=== PATIENT | female | born 1950 | race Asian ===

== ENCOUNTER → 2020-01-16 14:33 | Outpatient (BNV) | payer MEDICARE, OTHER, SELFPAY | PROVIDERS: Visit Provider Internal Medicine Medical Oncology | DX: C50.911 Malignant neoplasm of unspecified site of right female breast (principal); C78.7 Secondary malignant neoplasm of liver and intrahepatic bile duct; C79.51 Secondary malignant neoplasm of bone | CPT/HCPCS: 99212; 99213; 99214 ==

== ENCOUNTER 2020-02-23 11:09 | Outpatient (REF) | payer MEDICARE, OTHER, SELFPAY ==
--- NOTE | 2020-02-23 11:10 | MR_ITS ---
EXAMINATION: MR ABDOMEN WITHOUT AND WITH CONTRAST CLINICAL INFORMATION: Breast cancer. Followup metastatic disease. COMPARISON: Previous abdominal MRIs most recent May 2019 and PET/CT scan July 2019 TECHNIQUE: MR abdomen was performed without and with use of 6 mL intravenous Gadavist gadolinium contrast. Postcontrast images are performed in multiphase dynamic sequences. Imaging was performed in 3 planes. FINDINGS: LUNG BASES: The right breast has been removed. The lung bases are clear. LIVER, GALLBLADDER, AND BILIARY TREE: The left lobe of the liver appears small. There are areas of focal scarring or capsular retraction in the left lobe of the liver and one area in the posterior segment of the right lobe. The liver demonstrates a large area of altered/decreased enhancement. This involves the left lobe and the anterior segment of the right lobe. This appears increased from prior exams. This likely represents perfusion effects. There are multiple liver lesions seen. The majority of the lesions appear cystic, low signal on T1 and high signal on T2-weighted sequences and no evidence of enhancement. There are several heterogeneous lesions that are mixed high and low signal on T1 and T2-weighted sequences and demonstrate no appreciable enhancement in the left lobe measuring 2 cm axial image 29, centrally in the liver measuring 2.2 cm axial image 36 and peripherally in the posterior segment of the right lobe measuring 2 x 3 cm axial image 52. These peripheral lesions demonstrate overlying scarring or capsular retraction. This likely represents a combination of cysts and treated liver lesions. No new liver lesion or abnormal enhancement is seen. There are gallstones in the gallbladder. There is no biliary duct dilatation. PANCREAS: Unremarkable. SPLEEN: Normal. ADRENAL GLANDS: Normal. KIDNEYS AND URETERS: The kidneys are normal in size, shape, and enhance symmetrically. No hydronephrosis. No perinephric stranding. GASTROINTESTINAL TRACT: No bowel obstruction. No ascites or fluid collection. ABDOMINAL WALL: No significant hernia is appreciated. LYMPH NODES: No lymphadenopathy. VASCULAR: Unremarkable. OSSEOUS STRUCTURES: Marrow signal normal. MR/MR abdomen wo/w con IMPRESSION: Stable appearance to the multiple liver lesions likely representing a combination of treated lesions and liver cysts. No new liver lesion or abnormal enhancement is seen. There is a large area of altered perfusion involving the entire left lobe and the anterior segment of the right lobe of the liver seen on postcontrast sequences that appears increased likely representing perfusion effect. Gallstones.
== END 2020-02-23 11:10 | disposition home or self-care (01) ==
LOC: HO.MRI 11:09
PROVIDERS: Visit Provider Internal Medicine Medical Oncology
DX: C78.7 Secondary malignant neoplasm of liver and intrahepatic bile duct (principal)
CPT/HCPCS: 74183; A9585

== ENCOUNTER 2020-06-03 09:41 | Outpatient (REF) | payer MEDICARE, OTHER, SELFPAY ==
--- NOTE | 2020-05-24 10:49 | MHC.HEMONCMA ---
Called patient to ask which lab she wanted to have order faxed to. Faxed lab order to [address]. Confirmation received.
--- NOTE | ~2020-06-03 | MR_ITS ---
EXAMINATION: MR ABDOMEN WITHOUT AND WITH CONTRAST CLINICAL INFORMATION: Breast cancer. Liver metastasis. COMPARISON: Previous PET/CT scan March 2020 and previous abdominal MRI most recent February 2020. TECHNIQUE: MR abdomen was performed without and with use of 6.5 mL intravenous Gadavist gadolinium contrast. Postcontrast images are performed in multiphase dynamic sequences. Imaging was performed in 3 planes. FINDINGS: LUNG BASES: The visualized lung bases are clear. There is a right breast prosthesis. There is a 2 cm lesion in the left breast just deep to the nipple. This is seen on coronal sequences only. LIVER, GALLBLADDER, AND BILIARY TREE: The left lobe of the liver is a small. There are areas of liver scarring or capsular retraction seen. There is an area of abnormal perfusion seen in the posterior segment of the right lobe of the liver that appears unchanged. There are multiple liver lesions seen that appear unchanged. There are multiple liver lesions seen that are unchanged. There are several cystic lesions that are low signal on T1, high signal on T2 weighted sequences and demonstrate no evidence of enhancement. The largest measures 1.4 cm in the left lobe. There are several heterogeneous on T1 and T2-weighted sequences lesions with no enhancement, largest measuring 1.8 x 2.4 cm in the central liver axial image 44 and 1.8 x 2.7 cm in the peripheral posterior segment of the right lobe axial image 55 postcontrast. These are unchanged and likely represent treated lesions. No new liver lesion is seen. There are gallstones in the gallbladder. There is no biliary duct dilatation. PANCREAS: Unremarkable. SPLEEN: Normal. ADRENAL GLANDS: Normal. KIDNEYS AND URETERS: The kidneys are normal in size, shape, and enhance symmetrically. No hydronephrosis. No perinephric stranding. GASTROINTESTINAL TRACT: No bowel obstruction. No ascites or fluid collection. ABDOMINAL WALL: No significant hernia is appreciated. LYMPH NODES: No lymphadenopathy. VASCULAR: Unremarkable. OSSEOUS STRUCTURES: There are degenerative changes of the spine. MR/MR abdomen wo/w con IMPRESSION: Stable liver lesions likely representing a combination of cysts and treated lesions. Altered perfusion in the posterior segment of the right lobe of the liver. Small left lobe of the liver. Gallstones. 2.4 cm lesion in the left breast just deep to the nipple. Correlation with physical exam and mammogram recommended. The right breast is absent.
== END 2020-06-03 09:42 | disposition home or self-care (01) ==
LOC: HO.MRI 09:41
PROVIDERS: Visit Provider Internal Medicine Medical Oncology
DX: C50.919 Malignant neoplasm of unspecified site of unspecified female breast (principal)
CPT/HCPCS: 74183; A9585

== ENCOUNTER 2020-06-14 09:56 | Outpatient (REF) | payer MEDICARE, OTHER, SELFPAY ==
--- NOTE | ~2020-06-14 | US_ITS ---
EXAMINATION: US VENOUS ULTRASOUND WITH DOPPLER LOWER EXTREMITY, BILATERAL CLINICAL INFORMATION: Bilateral leg swelling evaluate for DVT COMPARISON: None TECHNIQUE: Ultrasound of the deep veins is performed from the hip to the calf with compression sonography and color and pulse Doppler assessment. Spectral analysis with color-flow imaging is performed. FINDINGS: RIGHT: There is normal venous compression and respiratory variation and augmented flow. The visualized common femoral vein, superficial femoral vein, profunda femoral vein, popliteal vein, and the trifurcation region shows no evidence of deep venous thrombosis. There is no significant popliteal fossa cyst. LEFT: There is normal venous compression and respiratory variation and augmented flow. The visualized common femoral vein, superficial femoral vein, profunda femoral vein, popliteal vein, and the trifurcation region shows no evidence of deep venous thrombosis. There is no significant popliteal fossa cyst. If the patient's symptoms persist, followup ultrasound in 5 days 7 days might be of value to exclude proximal propagation from a non-visualized calf vein. US/US venous duplex LE BI IMPRESSION: No DVT demonstrated in the right and left lower extremity.
== END 2020-06-14 09:57 | disposition home or self-care (01) ==
LOC: HO.US 09:56
PROVIDERS: PCP Internal Medicine; Visit Provider Orthopaedic Surgery
DX: R60.0 Localized edema (principal); C50.919 Malignant neoplasm of unspecified site of unspecified female breast; N63.20 Unspecified lump in the left breast, unspecified quadrant
CPT/HCPCS: 93970

== ENCOUNTER 2020-06-21 07:58 | Outpatient (REF) | payer MEDICARE, OTHER, SELFPAY ==
--- NOTE | ~2020-06-21 | MM_ITS ---
EXAMINATION: MM DIAGNOSTIC DIGITAL BREAST TOMOSYNTHESIS, LEFT US DIAGNOSTIC ULTRASOUND BREAST, LEFT CLINICAL INFORMATION: 69-year-old with history metastatic breast cancer to liver. Prior right mastectomy. Recent MRI shows circumscribed oval superficial nodularity near nipple on coronal large [id number] sequence. Prior mammography 2019 currently unavailable, performed in [place]. COMPARISON: MRI abdomen 06/03/2020, head CT 03/12/2020. TECHNIQUE: Digital breast tomosynthesis is performed in both the craniocaudal and mediolateral oblique views along with computer-aided detection (CAD). Synthesized 2D images are generated from the tomosynthesis. Ultrasound left breast is targeted to the retroareolar and periareolar region. FINDINGS: There are scattered areas of fibroglandular density (ACR BI-RADS breast composition Category b). Breast tissue composition borders on heterogeneously dense. There is no mass or architectural abnormality or abnormal calcifications. The skin contours are smooth. There is no retroareolar parenchymal asymmetry or mass to correspond to the concern on recent coronal MRI sequence. No abnormal PET activity left breast on recent imaging. Finding on recent MRI may have represented artifact from mild nipple retraction at time of imaging. Ultrasound demonstrates no cystic or solid mass or architectural abnormality. No focal duct ectasia. No skin thickening. Results are discussed with the patient at time of visit. If prior outside breast imaging is made available, comparison will be made and addendum report. MM/MM tomosynthesis diagnostic LT IMPRESSION: No mammographic evidence of malignancy. Unremarkable targeted left breast ultrasound. ASSESSMENT: BI-RADS 1: Negative RECOMMENDATION: Annual mammography. This patient's information was entered into a reminder system with a target due date for their next mammogram.
== END 2020-06-21 07:59 | disposition home or self-care (01) ==
LOC: HO.MAMMO 07:58
PROVIDERS: PCP Internal Medicine; Visit Provider Internal Medicine Medical Oncology
DX: N63.20 Unspecified lump in the left breast, unspecified quadrant (principal); Z85.3 Personal history of malignant neoplasm of breast; Z90.11 Acquired absence of right breast and nipple
CPT/HCPCS: 76642; 77061; 77065

== ENCOUNTER 2020-07-19 09:00 | Outpatient (RCR) | payer MEDICARE, OTHER, SELFPAY | END 2020-09-11 11:53 | disposition other institution (70) | LOC: HO.OT 09:00 | PROVIDERS: PCP Internal Medicine; Visit Provider Internal Medicine Medical Oncology | DX: I89.0 Lymphedema, not elsewhere classified (principal) | CPT/HCPCS: 97140; 97167 ==

== ENCOUNTER 2020-09-04 13:34 | Outpatient (REF) | payer MEDICARE, OTHER, SELFPAY ==
--- NOTE | ~2020-09-04 | MR_ITS ---
EXAMINATION: MR ABDOMEN WITHOUT AND WITH CONTRAST CLINICAL INFORMATION: Liver lesions, follow-up. COMPARISON: Abdominal MRI dated 06/03/2020 and PET/CT dated 03/12/2020. TECHNIQUE: MR abdomen was performed without and with use of 6 mL intravenous Gadavist gadolinium contrast. Postcontrast images are performed in multiphase dynamic sequences. Imaging was performed in 3 planes. FINDINGS: LUNG BASES: The visualized lung bases are unremarkable. LIVER: Several hepatic lesions are again seen with similar appearance in size. [employer] lesions are as follows: Anterior dome, subcapsular, low T1/T2 signal without significant enhancement: 2.2 x 2.1 cm (image 24, series 101). Mid dome, low T1/T2 signal without significant enhancement: 1.9 x 1.7 cm (image 21, series 101). Left lobe, anterior, T2 hyperintense without significant enhancement: 2.0 x 1.5 cm (image 30, series 100), similar adjacent lesion in measuring 0.9 cm (image 32, series 100) and 2.0 cm (image 38, series 100) without significant change. Right lobe, medially with longitudinal orientation, heterogeneous signal with T2 hyperintense component and no significant enhancement: 2.7 x 2.6 cm (image 36, series 101). Right lobe, posterolateral: Low T2 and mild high T1 signal without significant enhancement: 3.0 x 2.5 cm (image 50, series 101). GALLBLADDER, AND BILIARY TREE: Gallbladder is distended containing small gallstones without surrounding abnormality. PANCREAS: Unremarkable. SPLEEN: Unremarkable. ADRENAL GLANDS: Unremarkable. KIDNEYS AND URETERS: Unremarkable. GASTROINTESTINAL TRACT: Unremarkable. No ascites or fluid collection. ABDOMINAL WALL: Unremarkable. LYMPH NODES: No lymphadenopathy. VASCULAR: Unremarkable. OSSEOUS STRUCTURES: Multilevel degenerative changes without significant abnormality or change. MR/MR abdomen wo/w con IMPRESSION: 1. No significant change in hepatic lesions as detailed above. Imaging follow-up is recommended as per protocol. 2. Cholelithiasis without evidence for acute cholecystitis.
== END 2020-09-04 13:35 | disposition home or self-care (01) ==
LOC: HO.MRI 13:34
PROVIDERS: Visit Provider Internal Medicine Medical Oncology
DX: C50.919 Malignant neoplasm of unspecified site of unspecified female breast (principal); C78.7 Secondary malignant neoplasm of liver and intrahepatic bile duct
CPT/HCPCS: 74183; A9585

== ENCOUNTER 2020-12-27 10:55 | Outpatient (REF) | payer MEDICARE, OTHER, SELFPAY ==
--- NOTE | ~2020-12-27 | MR_ITS ---
EXAMINATION: MR ABDOMEN WITHOUT AND WITH CONTRAST CLINICAL INFORMATION: Breast cancer. Follow-up liver lesions. COMPARISON: Previous liver MRIs most recent September 2020 TECHNIQUE: MR abdomen was performed without and with use of 6 mL intravenous Gadavist gadolinium contrast. Postcontrast images are performed in multiphase dynamic sequences. Imaging was performed in 3 planes. FINDINGS: LUNG BASES: The visualized lung bases are clear. The right breast has been removed. LIVER, GALLBLADDER, AND BILIARY TREE: There is a atrophy or scarring of the left lobe of the liver. There is abnormal perfusion of the posterior segment of the right lobe of the liver that is unchanged. There is a heterogeneous signal lesion on T1 and T2-weighted sequences lesion in the peripheral posterior segment of the right lobe. This does not demonstrate evidence of enhancement. This is decreased in size from previous exams measuring 2 x 3.4 cm in AP and transverse dimension compared to 2.5 x 3 cm on most recent exam September 2020. There are similar in signal heterogeneous on T1 and T2-weighted sequences lesions in the central liver measuring approximately 2 cm that do not demonstrate evidence of enhancement and do not appear appreciably changed. There are multiple cystic lesions seen in the liver that are low signal on T1-weighted sequences, high signal on T2-weighted sequences and do not demonstrate evidence of enhancement that appear unchanged. These likely represents sequela of previously treated liver lesions. No new liver lesion or enhancement is seen to suggest new metastatic or recurrent disease. There is no intra or extrahepatic biliary duct dilatation. The gallbladder is contracted. There are small gallstones in the gallbladder. PANCREAS: Unremarkable. SPLEEN: Normal. ADRENAL GLANDS: Normal. KIDNEYS AND URETERS: The kidneys are normal in size, shape, and enhance symmetrically. No hydronephrosis. No perinephric stranding. GASTROINTESTINAL TRACT: No bowel obstruction. No ascites or fluid collection. ABDOMINAL WALL: No significant hernia is appreciated. LYMPH NODES: No lymphadenopathy. VASCULAR: Unremarkable. OSSEOUS STRUCTURES: Marrow signal normal. There are degenerative changes of the spine. MR/MR abdomen wo/w con IMPRESSION: There is interval decrease in size in a lesion in the peripheral posterior segment of the right lobe of the liver. Otherwise liver lesions do not appear appreciably changed from recent exams. No new liver lesion or enhancement is seen to suggest metastatic or recurrent disease.
== END 2020-12-27 10:56 | disposition home or self-care (01) ==
LOC: HO.MRI 10:55
PROVIDERS: PCP Internal Medicine; Visit Provider Internal Medicine Medical Oncology
DX: C50.919 Malignant neoplasm of unspecified site of unspecified female breast (principal)
CPT/HCPCS: 74183; A9585

== ENCOUNTER 2021-03-21 09:26 | Outpatient (REF) | payer MEDICARE, OTHER, SELFPAY ==
--- NOTE | ~2021-03-21 | MR_ITS ---
EXAMINATION: MR ABDOMEN WITHOUT AND WITH CONTRAST CLINICAL INFORMATION: Follow-up of liver metastasis from breast cancer. COMPARISON: Previous MRIs most recent December 2020. TECHNIQUE: MR abdomen was performed without and with use of 6 mL intravenous Gadavist gadolinium contrast. Postcontrast images are performed in multiphase dynamic sequences. Imaging was performed in 3 planes. FINDINGS: LUNG BASES: The visualized lung bases are clear. The right breast has been removed. LIVER, GALLBLADDER, AND BILIARY TREE: There is atrophy or scarring of the left lobe of the liver. There is a persistent wedge-shaped area of abnormal perfusion in the posterior segment of the right lobe the liver that is unchanged. There are multiple nonenhancing cystic lesions seen in the both lobes of the liver. There are also multiple round heterogeneous on T1 and T2-weighted sequences nonenhancing lesions seen in both lobes of the liver. Findings are suggestive of a previously treated lesions. No new liver lesion is seen. No enhancement is seen to suggest residual disease. The portal and hepatic veins are patent. The gallbladder is not well-visualized and may be contracted. There is no intrahepatic or extrahepatic biliary duct dilatation. PANCREAS: Unremarkable. SPLEEN: Normal. ADRENAL GLANDS: Normal. KIDNEYS AND URETERS: The kidneys are normal in size, shape, and enhance symmetrically. No hydronephrosis. No perinephric stranding. GASTROINTESTINAL TRACT: No bowel obstruction. No ascites or fluid collection. ABDOMINAL WALL: No significant hernia is appreciated. LYMPH NODES: No lymphadenopathy. VASCULAR: Unremarkable. OSSEOUS STRUCTURES: There are degenerative changes of the spine. Marrow signal is normal. MR/MR abdomen wo/w con IMPRESSION: Stable appearance of liver lesions from most recent exam December 2020. No new liver lesion or enhancement is seen to suggest recurrent disease.
== END 2021-03-21 09:27 | disposition home or self-care (01) ==
LOC: HO.MRI 09:26
PROVIDERS: PCP Internal Medicine; Visit Provider Internal Medicine Medical Oncology
DX: C50.919 Malignant neoplasm of unspecified site of unspecified female breast (principal)
CPT/HCPCS: 74183; A9585

== ENCOUNTER 2021-06-25 13:00 | Outpatient (REF) | payer MEDICARE, OTHER, SELFPAY ==
--- NOTE | ~2021-06-25 | MM_ITS ---
EXAMINATION: MM SCREENING DIGITAL BREAST TOMOSYNTHESIS, LEFT CLINICAL INFORMATION: Screening. Asymptomatic. Status post right mastectomy. Breast cancer metastatic to liver. COMPARISON: Mammography: June 21, 2020 and MRI and PET/CT studies dating back to December 04, 2014 TECHNIQUE: Digital breast tomosynthesis is performed in both the craniocaudal and mediolateral oblique views along with computer-aided detection (CAD). Synthesized 2D images are generated from the tomosynthesis. FINDINGS: The breasts are heterogeneously dense, which may obscure small masses (ACR BI-RADS breast composition Category c). There are no significant masses, abnormal calcifications, or other abnormalities. MM/MM tomosynthesis screening LT IMPRESSION: There are no significant changes from prior study. ASSESSMENT: BI-RADS 1: Negative RECOMMENDATION: Routine annual mammography screening. This patient's information was entered into a reminder system with a target due date for their next mammogram.
== END 2021-06-25 13:01 | disposition home or self-care (01) ==
LOC: HO.MAMMO 13:00
PROVIDERS: PCP Internal Medicine; Visit Provider Internal Medicine Medical Oncology
DX: Z12.31 Encounter for screening mammogram for malignant neoplasm of breast (principal)
CPT/HCPCS: 77063; 77067

== ENCOUNTER 2021-07-07 13:27 | Outpatient (REF) | payer MEDICARE, OTHER, SELFPAY ==
--- NOTE | ~2021-07-07 | MR_ITS ---
EXAMINATION: MR ABDOMEN WITHOUT AND WITH CONTRAST CLINICAL INFORMATION: Liver metastasis from breast cancer. COMPARISON: Previous abdominal MRIs, most recent March 2021. TECHNIQUE: MR abdomen was performed without and with use of 6 mL intravenous Gadavist gadolinium contrast. Postcontrast images are performed in multiphase dynamic sequences. Imaging was performed in 3 planes. FINDINGS: LUNG BASES: The visualized lung bases are unremarkable. LIVER, GALLBLADDER, AND BILIARY TREE: There is atrophy of the left lobe of the liver. There is abnormal increased perfusion of the posterior segment of the right lobe of the liver similar to previous exams. There are stable liver lesions likely representing treated lesions. The majority of these lesions are cystic and low signal on T1 and high signal on T2-weighted sequences. There are some heterogeneous lesions that are heterogeneous in signal on T1 and T2-weighted sequences. No enhancing liver lesion is seen. Largest lesion measures 2.3 x 2.8 cm in the central liver. No new liver lesion is seen. There may be an area of mild focal biliary duct dilatation in the posterior segment of the right lobe of the liver that is unchanged. The gallbladder appears contracted. There may be small gallstones in the gallbladder. PANCREAS: Unremarkable. SPLEEN: Normal. ADRENAL GLANDS: Normal. KIDNEYS AND URETERS: The kidneys are normal in size, shape, and enhance symmetrically. No hydronephrosis. No perinephric stranding. GASTROINTESTINAL TRACT: Diverticulosis of the colon. No bowel obstruction. No ascites or fluid collection. ABDOMINAL WALL: No significant hernia is appreciated. LYMPH NODES: No lymphadenopathy. VASCULAR: Unremarkable. OSSEOUS STRUCTURES: There are degenerative changes of the spine. There is increased signal seen probably anterior to the right hip joint. This is seen on coronal sequences only. This could represent a joint effusion or fluid in the iliopsoas bursa. MR/MR abdomen wo/w con IMPRESSION: Stable appearance of the liver likely representing treated lesions. No new liver lesion seen. Probable contracted gallbladder and gallstones. Probable contracted gallbladder and gallstones. Mild diverticulosis of the colon.
== END 2021-07-07 13:28 | disposition home or self-care (01) ==
LOC: HO.MRI 13:27
PROVIDERS: Visit Provider Internal Medicine Medical Oncology
DX: C50.919 Malignant neoplasm of unspecified site of unspecified female breast (principal); C78.7 Secondary malignant neoplasm of liver and intrahepatic bile duct; K57.90 Diverticulosis of intestine, part unspecified, without perforation or abscess without bleeding
CPT/HCPCS: 74183; A9585

== ENCOUNTER 2021-10-28 14:13 | Outpatient (REF) | payer MEDICARE, OTHER, SELFPAY ==
--- NOTE | ~2021-10-28 | US_ITS ---
EXAMINATION: US VENOUS WITH DOPPLER UPPER EXTREMITY, RIGHT CLINICAL INFORMATION: Right upper extremity edema. COMPARISON: None TECHNIQUE: Ultrasound of the upper extremity is performed using compression sonography and color and pulse Doppler flow with assessment of augmentation of flow. There is also imaging and Doppler assessment of the jugular and subclavian veins. Spectral analysis with color-flow imaging is performed. FINDINGS: Respiratory variation, normal compression, and augmented flow are noted throughout the upper extremity including the axillary, brachial, cubital, and radial and ulnar veins. There is normal flow in the internal jugular and subclavian veins. There is no visible deep or superficial thrombophlebitis. If the patient's symptoms progress, a followup ultrasound in 5 -7 days might be of value to exclude proximal propagation from a nonvisualized distal arm vein. US/US venous duplex UE RT IMPRESSION: No evidence for deep venous thrombosis in the visualized veins of the right upper extremity.
== END 2021-10-28 14:14 | disposition home or self-care (01) ==
LOC: HO.US 14:13
PROVIDERS: PCP Internal Medicine; Visit Provider Internal Medicine Medical Oncology
DX: R60.0 Localized edema (principal)
CPT/HCPCS: 93971

== ENCOUNTER 2021-11-19 11:27 | Outpatient (REF) | payer MEDICARE, OTHER, SELFPAY ==
--- NOTE | ~2021-11-19 | MR_ITS ---
EXAMINATION: MR ABDOMEN WITHOUT AND WITH CONTRAST CLINICAL INFORMATION: Metastatic breast cancer. COMPARISON: Previous MRIs most recent July 2021. TECHNIQUE: MR abdomen was performed without and with use of 6 mL intravenous Gadavist gadolinium contrast. Postcontrast images are performed in multiphase dynamic sequences. Imaging was performed in 3 planes. FINDINGS: LUNG BASES: The visualized lung bases are unremarkable. LIVER, GALLBLADDER, AND BILIARY TREE: There is atrophy of the left lobe of the liver. There is abnormal increased perfusion in the posterior segment of the right lobe of the liver, similar to previous exams. There are multiple liver lesions seen in both lobes of the liver, likely representing treated lesions. Some lesions are cystic, low signal on T1-weighted sequences and high signal on T2-weighted sequences. Largest cystic lesion measures 1.3 x 2 cm in the central left lobe of the liver, for example axial image 36 postcontrast. There are some lesions that are heterogeneous in signal on T1 and T2-weighted sequences without evidence of enhancement. Largest lesions measure 2.5 cm in the central liver, for example axial image 38 postcontrast and 1.5 x 2.5 cm in the posterior segment of the right lobe of the liver axial image 49 postcontrast. No new liver lesion is seen. There is no biliary duct dilatation. PANCREAS: Unremarkable. SPLEEN: Normal. ADRENAL GLANDS: Normal. KIDNEYS AND URETERS: The kidneys are normal in size, shape, and enhance symmetrically. No hydronephrosis. No perinephric stranding. GASTROINTESTINAL TRACT: Diverticulosis of the colon. No bowel obstruction. No ascites or fluid collection. ABDOMINAL WALL: No significant hernia is appreciated. LYMPH NODES: No lymphadenopathy. VASCULAR: Unremarkable. OSSEOUS STRUCTURES: There are degenerative changes of the spine. No fracture or bone lesion is appreciated. MR/MR abdomen wo/w con IMPRESSION: Atrophy of the left lobe of the liver. Stable abnormal increased perfusion of the posterior segment of the right lobe of the liver. Stable probably treated liver lesions. No new liver lesion seen.
== END 2021-11-19 11:28 | disposition home or self-care (01) ==
LOC: HO.MRI 11:27
PROVIDERS: Visit Provider Internal Medicine Medical Oncology
DX: C50.919 Malignant neoplasm of unspecified site of unspecified female breast (principal)
CPT/HCPCS: 74183; A9585

== ENCOUNTER → 2021-12-10 15:21 | Outpatient (BNVA) | payer MEDICARE, OTHER, SELFPAY | PROVIDERS: PCP Internal Medicine; Visit Provider Nurse Practitioner Family | DX: Z01.818 Encounter for other preprocedural examination (principal) | CPT/HCPCS: 99202 ==

== ENCOUNTER 2021-12-17 11:00 | Outpatient (RCR) | payer MEDICARE, OTHER, SELFPAY ==
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
--- NOTE | 2021-12-17 15:39 | MHC.OT.DC ---
[address] [phone] F: [phone] Occupational Therapy Discharge Note Provider: Alisson Neff MD Diagnosis: Right upper extremity lymphedema , s/p right breast Ca with mastectomy Date of Surgery: Date of Evaluation: 11/28/21 Date of Discharge: 12/17/21 Treatments to Date: 4 Cancellations to Date: No Shows to Date: Discharge Status: Achieved Goals Improved Function Independent with HEP Discharge Summary: Dec in hand and arm edema noted. Mild to moderate fibrosis at forearm will benefit from added babatunde pack to facilitate softening tissue and lymphatic flow. Pt wearing sleeve during the day and wrapping with bandaging at night. She is not wearing compression knee highs with a history of LE lymphedema with residual edema at ankles noted. She is indep with self management with the assist from her with night bandaging and she is aware of precautions with bandaging. [place] will be out of the country [place] 3 [place] and has scheduled for the Flexitouch sequential pump for when she returns in April. An alternative night compression wrap will be beneficial for further edema reduction, prevention of a re accumulation of fluid as well as independence in self management. Will benefit from added chunk luciana for night wear to soften fibrotic tissue and alternative night compression sleeve for inc ease in self management. Pt leaving for [facility] this weekend for 3 months Will wait for ordering night sleeve when she returns in April 2022 Electronically Signed By: Libby Miles OT CHT CLT Reviewed/agree with student documentation: N/A Therapist: Please Sign and return to therapist, thank you for your referral.
== END 2022-01-19 09:35 | disposition home or self-care (01) ==
LOC: HO.OT 11:00
PROVIDERS: PCP Internal Medicine; Visit Provider Internal Medicine Medical Oncology
DX: R22.31 Localized swelling, mass and lump, right upper limb (principal)
CPT/HCPCS: 97140; 97166

== ENCOUNTER 2022-04-20 13:19 | Outpatient (REF) | payer MEDICARE, OTHER, SELFPAY ==
--- NOTE | ~2022-04-20 | MR_ITS ---
EXAMINATION: MR ABDOMEN WITHOUT AND WITH CONTRAST CLINICAL INFORMATION: Follow up liver lesions in this patient with history of metastatic breast cancer. COMPARISON: Abdominal MRI 11/19/2021. TECHNIQUE: MR abdomen was performed without and with use of 6 mL intravenous Gadavist gadolinium contrast. Postcontrast images are performed in multiphase dynamic sequences. Imaging was performed in 3 planes. FINDINGS: LUNG BASES: Right-sided mastectomy with a right breast implant. LIVER, GALLBLADDER, AND BILIARY TREE: There is signal loss in the opposed phase dual echo images suggesting hepatic steatosis. There is atrophy of the left hepatic lobe and multiple areas of capsular retraction along the surface of the liver consistent with pseudocirrhosis in the setting of treated metastatic disease. There is redemonstration of innumerable liver lesions the majority of which are either stable or decreased in size. However, when evaluating one of the delayed venous phases (series 101) a 0.8 cm hypovascular lesion posterior to a larger lesion in the central right hepatic lobe (1001:12) appears new; and a few regions of ill-defined hypoattenuation in the posterior right hepatic lobe are slightly more prominent (101:28). Some examples of the additional stable/decreased lesions include a 2.5 cm posterior right hepatic lobe lesion (101:34) previously measuring 2.7 cm and a 2.9 cm central liver lesion (101:23) previously measuring 3 cm. Many of the lesions are predominantly T2 bright, however a few of the largest lesions demonstrate heterogeneous T2 signal and low T2 signal. On T1 precontrast images there are proteinaceous/hemorrhagic contents in many of the lesions. There is redemonstration of a wedge-shaped area of delayed enhancement with intermediate T2 signal in the posterior right hepatic lobe, favoring to represent sequela of a perfusional abnormality. PANCREAS: Unremarkable. SPLEEN: Normal. ADRENAL GLANDS: Normal. KIDNEYS AND URETERS: The kidneys are normal in size, shape, and enhance symmetrically. No hydronephrosis. No perinephric stranding. GASTROINTESTINAL TRACT: The included portions of the bowel are within normal limits. ABDOMINAL WALL: No significant hernia is appreciated. LYMPH NODES: No lymphadenopathy. VASCULAR: The abdominal aorta is of normal diameter. OSSEOUS STRUCTURES: Degenerative changes of the spine. OTHERS: Incompletely characterized T2 dark uterine lesion along the anteroinferior body (1:7) with questionable thickening of the endometrium measuring up to 0.7 cm in thickness. Trace amount of free fluid in the cul-de-sac and right adnexal region. Multiple soft tissue nodules in the gluteal regions, possibly injection sites. MR/MR abdomen wo/w con IMPRESSION: 1. Redemonstration of innumerable liver lesions many of which are either stable or decreased in size except for a couple of new focal observations in the posterior right hepatic lobe best identified in one of the postcontrast venous phases (series 101). These are nonspecific and could potentially represent new metastatic foci. A short-term follow-up is recommended. 2. Incompletely characterized T2 dark uterine lesion with questionable thickening of the endometrium measuring up to 0.7 cm in thickness. This could be further evaluated with pelvic ultrasound.
== END 2022-04-20 13:20 | disposition home or self-care (01) ==
LOC: HO.MRI 13:19
PROVIDERS: PCP Internal Medicine; Visit Provider Internal Medicine Medical Oncology
DX: C50.919 Malignant neoplasm of unspecified site of unspecified female breast (principal)
CPT/HCPCS: 74183

== ENCOUNTER 2022-05-28 10:53 | Day surgery (SDC) | payer MEDICARE, OTHER, SELFPAY ==
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
[2022-05-28 11:36] VITALS: BMI 22.3
--- NOTE | 2022-05-28 11:39 | MHC.SHP ---
Pre-Procedural Eval Section A Date of Service: 05/28/22 Section B Chief Complaint: screening Relevant Family History (Specify if Yes): No Relevant Social History: None Present Medications: see Short Stay Collaborative assessment Medical History: Significant History (Arthritis Arthrosis of knee Hypertension) History of Previous Operations: Relevant previous surgery/procedure and date(s) (H/O arthroscopy of left knee H/O total mastectomy of right breast History of appendectomy History of bunionectomy) Allergies: Allergies Allergy/AdvReac Type Severity Reaction Status Date / Time ragweed pollen [RAGWEED] Allergy Unknown SNEEZING, Verified 05/26/22 13:17 CONGESTION Review of Systems Sugical H&P ROS: Negative: Constitution, Cardiovascular, Respiratory, Neurological, Psychiatric, Hem-Onc, Allergic/Immunologic, Gastrointestinal, Genitourinary, Musculoskeletal, Integumentary, Endocrine and Eyes/Ears/Nose/Throat Exam Surgical H&P Exam: Normal: HEENT, Normal: Heart, Normal: Lungs, Normal: Extremities, Normal: Abdomen, Normal: Skin and Normal: Neurological Plan Diagnosis/Plan: Unchanged I have reviewed the history and physical and performed a pertinent physical examination on my patient. No changes have occurred unless specified. Time Spent With Patient Time: Total time managing care of this patient today ____ minutes.
[2022-05-28 11:49] VITALS: BP 162/95; PULSE 82; RESP 16; TEMP 36.6; O2SAT 99
[2022-05-28 12:35] VITALS: BP 143/88; PULSE 83; RESP 20; TEMP 36.6; O2SAT 99
--- NOTE | 2022-05-28 12:35 | W.PM.OPN ---
Operative Note Operative Note Date of Service: 05/28/22 Narrative: Operative Information Procedure Description: Colonoscopy Indication: screening Anesthesia: MAC COLONOSCOPY Instrument: Olympus variable stiffness pediatric scope 190L Colonoscopy Monitoring: Vital signs and clinical assessment, continuous EKG monitoring, Pulse oximetry, Carbon Dioxide monitoring and blood pressure monitoring were done throughout the procedure. Colon withdrawal time was 24 minutes. Procedure: The patient was placed in the left lateral decubitis position and pre-procedure medications were administered. After a digital rectal examination of the ano-rectum, the video colonoscope was inserted into the rectum and advanced through the colon to the cecum/TI. The colonoscope was slowly withdrawn in a retrograde panoramic fashion and the colon mucosa was carefully examined including a retroflexed view of the rectum. Findings and interventions are described below. Procedure Difficulty: moderate due to tortuous colon Findings: Terminal Ileum-normal Cecum: 3-4 mm sessile polyp removed with cold forceps Ascending Colon: normal Transverse Colon -normal Descending Colon:normal Sigmoid Colon: mild diverticulosis, 13-15 mm semi pedunculated polyp removed en bloc with hot snare (endocut) after injecting with 3 cc of epinephrine. x 2 clips then applied to close the defect. Rectum: Retroflexion with small internal hemorrhoids, grade I Anorectum - normal Colon preparation: [place] Bowel Preparation Scale Right colon; 2 Transverse colon: 3 Left colon; 3 (0 = Unprepared colon segment with mucosa not seen due to solid stool that cannot be cleared. 1 = Portion of mucosa of the colon segment seen, but other areas of the colon segment not well seen due to staining, residual stool and/or opaque liquid. 2 = Minor amount of residual staining, small fragments of stool and/or opaque liquid, but mucosa of colon segment seen well. 3 = Entire mucosa of colon segment seen well with no residual staining, small fragments of stool or opaque liquid) Impression and Post Procedure Diagnosis: polyps internal hemorrhoids diverticular disease Plan: High fiber diet leaflet Avoid straining at stool, epsom salts and sitz bath, anusol supps or cream Repeat Colonoscopy in 1-2 years or earlier if clinically indicated Above findings were reviewed with the patient and relevant handouts were provided if indicated.
[2022-05-28 12:50] VITALS: BP 166/92; PULSE 84; RESP 18; TEMP 37; O2SAT 97
== END 2022-05-28 13:45 | disposition home or self-care (01) ==
PROVIDERS: PCP Internal Medicine; Visit Provider Internal Medicine Gastroenterology
PROC: 0DJD8ZZ Inspection of Lower Intestinal Tract, Via Natural or Artificial Opening Endoscopic (ICD-10-PCS; CPT 45378; principal; 2022-05-28 12:20)
DX: Z12.11 Encounter for screening for malignant neoplasm of colon (principal); C19 Malignant neoplasm of rectosigmoid junction; D12.0 Benign neoplasm of cecum; K57.30 Diverticulosis of large intestine without perforation or abscess without bleeding; K64.0 First degree hemorrhoids; K56.2 Volvulus; I10 Essential (primary) hypertension; M17.12 Unilateral primary osteoarthritis, left knee; Z90.11 Acquired absence of right breast and nipple; Z79.899 Other long term (current) drug therapy
CPT/HCPCS: 45385; 45380; 45381; 88305; 88341; 88342; J0171

== ENCOUNTER 2022-05-29 11:07 | Outpatient (REF) | payer MEDICARE, OTHER, SELFPAY ==
--- NOTE | ~2022-05-29 | US_ITS ---
EXAMINATION: US PELVIS CLINICAL INFORMATION: Follow-up uterine lesion and endometrial thickening. COMPARISON: MRI abdomen dated 04/20/2022. TECHNIQUE: Ultrasound of the pelvis is performed using both transabdominal and transvaginal transducers along with Doppler. Transvaginal imaging is performed due to inadequate visualization transabdominally. FINDINGS: Uterus: The uterus is anteverted and anteflexed. The uterus measures 8.0 x 3.9 x 5.3 cm. The double wall endometrial thickness is 0.7 mm. A small amount of nonspecific free fluid is seen within the endometrial canal and endocervical canal. The uterus is smooth in contour and has normal myometrial echogenicity. Nabothian cysts are seen within the cervix. FIBROIDS: There are 2 fibroids seen. 1. Location: Rightward body, myometrial. Size: 2.6 x 1.3 x 1.9 cm. Fibroid characteristics: Heterogeneous echotexture, with calcifications. 2. Location: Leftward body, myometrial. Size: 2.7 x 2.3 x 2.8 cm. Fibroid characteristics: Heterogeneous echotexture, calcifications. Adnexa: Both ovaries are nonvisualized. No adnexal mass is seen. No free fluid is seen within the cul-de-sac. US/US pelvic and transvaginal IMPRESSION: 1. There are uterine fibroids, as detailed. 2. There is postmenopausal thickening of the endometrial canal. Gynecology evaluation and management are recommended, with consideration for tissue sampling, if clinically indicated. 3. There is a small amount of nonspecific free fluid within the endometrial and endocervical canals. 4. Nabothian cysts are seen within the cervix. 5. The bilateral ovaries are nonvisualized.
== END 2022-05-29 11:08 | disposition home or self-care (01) ==
LOC: HO.US 11:07
PROVIDERS: PCP Internal Medicine; Visit Provider Internal Medicine Medical Oncology
DX: R87.9 Unspecified abnormal finding in specimens from female genital organs (principal)
CPT/HCPCS: 76830; 76856

== ENCOUNTER → 2022-06-04 08:26 | Outpatient (BNVA) | payer MEDICARE, OTHER, SELFPAY | PROVIDERS: PCP Internal Medicine; Referring Provider Internal Medicine Medical Oncology; Visit Provider Surgery | DX: C18.9 Malignant neoplasm of colon, unspecified (principal) | CPT/HCPCS: 99202 ==

== ENCOUNTER 2022-06-15 11:15 | Outpatient (REF) | payer MEDICARE, OTHER, SELFPAY ==
--- NOTE | ~2022-06-15 | CT_ITS ---
EXAMINATION: CT ABDOMEN AND PELVIS WITH CONTRAST CLINICAL INFORMATION: Malignant neoplasm of colon. COMPARISON: MRI abdomen 04/20/2022. TECHNIQUE: Multidetector volumetric images were obtained from the superior aspect of the liver through the pubic symphysis following administration 85 mL of Omnipaque 350 intravenous contrast. Sagittal and coronal reformatted images were obtained on the technologist's workstation. Oral contrast: No This CT examination was performed using dose optimization techniques as appropriate, variously including the following: *Automated exposure control *Adjustment of mA and/or kV according to patient size (this includes techniques or standardized protocols for targeted exams where dose is matched to indication/reason for exam; i.e. extremities or head) *Use of iterative reconstruction technique DLP: 268 mGy-cm FINDINGS: LUNG BASES: There is a left lower lobe band-like atelectasis. Small left pleural effusion and minimal right posterior pleural thickening is seen. LIVER, GALLBLADDER, AND BILIARY TREE: There are multiple hypodense liver lesions. The largest lesion is central adjacent to the mary lou hepatis measuring 2.6 cm on axial image 12/3. These lesions are different from previous study 11/26/2016. The newest lesion posterior to the central lesion described on MRI as 8 mm, similar to previous measurement. There appears be no change in the size of these lesions. Mild retraction of the capsule along the right hepatic lobe is stable. The left hepatic lobe is smaller. There is a soft tissue lesion along the posterior segment of right hepatic lobe likely intrahepatic and partially exophytic measuring 3.9 x 2.6 cm on axial image 22/3. It appears unchanged to previous MRI. No intrahepatic duct dilatation seen. There are multiple radiopaque gallstones without wall thickening. The liver is heterogeneous and normal size. PANCREAS: Unremarkable. SPLEEN: Unremarkable. ADRENAL GLANDS: Unremarkable. KIDNEYS AND URETERS: The kidneys are normal in size, shape, and attenuation. No hydronephrosis, hydroureter, or calculi seen. No perinephric stranding. BLADDER: Unremarkable. GASTROINTESTINAL TRACT: There is scattered stool and gas seen throughout the colon without distention. The small bowel loops are normal caliber. Appendix is normal caliber. No free air or free fluid seen. ABDOMINAL WALL: No significant hernia is appreciated. LYMPH NODES: Normal. VASCULAR: Unremarkable. PELVIC VISCERA: The uterus is midline with calcified partially exophytic fibroid measuring 3 cm. OSSEOUS STRUCTURES: There is grade 1 anterolisthesis L3 over L4. There are degenerative disc changes L5-S1 disc level with ventral spondylosis. CT/CT abdomen pelvis w IV con IMPRESSION: Heterogeneous nonenlarged liver with multiple hypodense lesions essentially stable to the last MRI abdomen exam 04/20/2022. No new lesions are seen since the last MRI. Suspect gallstones with a small contracted gallbladder. Mild constipation. Partially exophytic calcified uterine fibroid is stable. Fleischner guidelines were followed.
[2022-06-15] MEDS: iohexoL 350 MG/ML 100 ML INFUS..BTL 85 ML IV (11:52)
== END 2022-06-15 11:16 | disposition home or self-care (01) ==
LOC: HO.CT 11:15
PROVIDERS: PCP Internal Medicine; Visit Provider Surgery
DX: C18.9 Malignant neoplasm of colon, unspecified (principal)
CPT/HCPCS: 74177; Q9967

== ENCOUNTER → 2022-06-22 13:55 | Outpatient (BNVA) | payer MEDICARE, OTHER, SELFPAY | PROVIDERS: PCP Internal Medicine; Visit Provider Surgery | DX: C18.9 Malignant neoplasm of colon, unspecified (principal); I89.0 Lymphedema, not elsewhere classified; Z85.3 Personal history of malignant neoplasm of breast; Z85.05 Personal history of malignant neoplasm of liver; Z90.11 Acquired absence of right breast and nipple | CPT/HCPCS: 99212 ==

== ENCOUNTER 2022-07-23 12:09 | Outpatient (REF) | payer MEDICARE, OTHER, SELFPAY ==
--- NOTE | ~2022-07-23 | MM_ITS ---
EXAMINATION: MM SCREENING DIGITAL BREAST TOMOSYNTHESIS, LEFT CLINICAL INFORMATION: Screening. Asymptomatic. Status post right mastectomy COMPARISON: Mammography: June 25, 2021 and studies dating back to breast MRI December 29, 2019 TECHNIQUE: Digital breast tomosynthesis is performed in both the craniocaudal and mediolateral oblique views along with computer-aided detection (CAD). Synthesized 2D images are generated from the tomosynthesis. FINDINGS: The breasts are heterogeneously dense, which may obscure small masses (ACR BI-RADS breast composition Category c). There are no significant masses, abnormal calcifications, or other abnormalities. MM/MM tomosynthesis screening LT IMPRESSION: No significant changes ASSESSMENT: BI-RADS 1: Negative RECOMMENDATION: Routine annual mammography screening. This patient's information was entered into a reminder system with a target due date for their next mammogram.
== END 2022-07-23 12:10 | disposition home or self-care (01) ==
LOC: HO.MAMMO 12:09
PROVIDERS: Visit Provider Internal Medicine Medical Oncology
DX: Z12.31 Encounter for screening mammogram for malignant neoplasm of breast (principal)
CPT/HCPCS: 77063; 77067

== ENCOUNTER 2022-07-30 08:56 | Day surgery (SDC) | payer MEDICARE, OTHER, SELFPAY ==
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
[2022-07-30 08:38] VITALS: BMI 21.9
[2022-07-30 09:00] VITALS: BP 173/92; PULSE 78; RESP 18; TEMP 36.1; O2SAT 98
[2022-07-30] MEDS: Lactated Ringers 1,000 ML 100 ML IVCONT (09:33)
--- NOTE | 2022-07-30 09:48 | PC.NURSE ---
pt hard stick #22 left wrist. pt coming back fron resections tomorrow okay by director and anesthesia to leave iv in. pt educated about adaptor and pacu and d/c aware
--- NOTE | 2022-07-30 10:35 | W.PM.OPN ---
Operative Note Operative Note Date of Service: 07/30/22 Narrative: Preop diagnosis: sigmoid cancer Postop diagnosis: the same, no obvious lesion seen, scar noted at level 30 cm Procedure: flexible sigmoidoscopy, tattoo marking of scar at level 30 cm using Endoink Surgeon: Filemon Urrutia MD 71F with polyp removed by Dr. 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 As per Dr. Pennington, the polyp was at around level 20 cm. I scheduled the patient for flexible sigmoidoscopy to yajaira the area. She was aware of the risks, benefits and alternatives. She was brought to the OR and placed in left lateral decub position under MAC. A surgical timeout was done. A digital rectal exam was done which did not reveal any lesions. I inserted the colonoscop gently through the anal orifice and this was advanced with insufflation to level 50 cm. I withdrew the scope slowly with careful examination of the mucosa. There were no lesions seen. There was a fibrotic scar at level 30 cm. I marked this area with EndoInk in multiple places. Multiple passes were made on the sigmoid and rectosigmoid and there were no other mucosal changes noted. The scope was withdrawn completely with dessuflation. She tolerated the procedure well. There were no immediate complications. She is scheduled for sigmoid resection tomorrow.
[2022-07-30 10:38] VITALS: BP 123/71; PULSE 81; RESP 20; TEMP 36.5; O2SAT 95
[2022-07-30 10:50] VITALS: BP 116/92; PULSE 80; RESP 16; TEMP 36.7; O2SAT 98
[2022-07-30 11:00] VITALS: BP 158/91; PULSE 78; RESP 16; O2SAT 98
--- NOTE | 2022-07-30 11:10 | PC.NURSE ---
as per dr Renan fuentes to maintain iv in left arm until tomorows procedure. Curos cap place to maintain sterility and webbed sock placed over entire line. Education provided on bathing and preventing getting line wet. communicated with Discharge lounge as well
== END 2022-07-30 11:23 | disposition home or self-care (01) ==
PROVIDERS: PCP Internal Medicine; Visit Provider Surgery
PROC: 0DJD8ZZ Inspection of Lower Intestinal Tract, Via Natural or Artificial Opening Endoscopic (ICD-10-PCS; CPT 45330; principal; 2022-07-30 10:00)
DX: C18.7 Malignant neoplasm of sigmoid colon (principal); C50.911 Malignant neoplasm of unspecified site of right female breast; Z79.810 Long term (current) use of selective estrogen receptor modulators (SERMs); C78.7 Secondary malignant neoplasm of liver and intrahepatic bile duct; Z90.11 Acquired absence of right breast and nipple; Z92.21 Personal history of antineoplastic chemotherapy; Z92.3 Personal history of irradiation; I97.2 Postmastectomy lymphedema syndrome; I10 Essential (primary) hypertension; K21.9 Gastro-esophageal reflux disease without esophagitis; Z79.899 Other long term (current) drug therapy; Z86.16 Personal history of COVID-19
CPT/HCPCS: 45335

== ENCOUNTER 2022-07-31 11:52 | Inpatient (IN) | payer MEDICARE, OTHER, SELFPAY ==
--- NOTE | 2022-07-23 | ECG_ITS ---
Test Reason : HTN PREOP Blood Pressure : / mmHG Vent. Rate : 078 BPM Atrial Rate : 078 BPM P-R Int : 176 ms QRS Dur : 092 ms QT Int : 412 ms P-R-T Axes : 059 028 053 degrees QTc Int : 469 ms Normal sinus rhythm Normal ECG When compared with ECG of 01-MAY-2016 12:16, No significant change was found Referred By: Blessing Miranda Electronically Signed By:LORENZO MERRILL
[2022-07-23 13:13] VITALS: BP 139/69; PULSE 75; RESP 16; O2SAT 98; BMI 22.3
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
[2022-07-23 15:00] LABS: Hematocrit 34.9 % (37.0-47.0); Hemoglobin 11.1 g/dl (12.0-16.0); Mean Corpuscular HGB Conc 31.8 g/dl (31.0-35.0); Mean Corpuscular Hemoglobin 26.2 pg (27.0-33.0); Mean Corpuscular Volume 82.5 fL (80.0-98.0); Mean Platelet Volume 11.2 fL (9.4-12.3); Platelet Count 147 X10*3/uL (160-400); Red Blood Count 4.23 X10*6/uL (4.20-5.50); Red Cell Distribution Width 14.6 % (11.0-16.0); White Blood Count 4.7 X10*3/uL (4.8-10.8)
[2022-07-31] VITALS (11 sets, daily range): BP systolic 113–145; BP diastolic 56–85; PULSE 77–86; RESP 16–18; TEMP 36–36.7; O2SAT 94–100
[2022-07-31] MEDS: Scopolamine 1.5 MG PATCH.TD.3 TRANSDERMA (08:13)
[2022-07-31] MEDS: Lactated Ringers 1,000 ML 100 ML IVCONT (08:13)
--- NOTE | 2022-07-31 08:53 | PC.NURSE ---
IV placed yesterday by shankar morris rn for flex sig. patient difficult IV site with limb restriction. permission for patient to go home with IV for surgery today. this 22 gauge IV flushed without difficulty. dr. coombs attempted ultrasound IV at bedside this a.m. with no success will re-evaluate in OR.
--- NOTE | 2022-07-31 11:33 | P.OP_ITS ---
Operative Note Operative Note Date of Service: 07/31/22 Narrative: preop diagnosis: sigmoid cancer Postop diagnosis: The same Procedure: Hand assisted laparoscopic sigmoid resection with intraop flexible sigmoidoscopy Surgeon: Filemon Urrutia MD property management assistant: RENAE Zepeda Patient is 71-year-old female what undergone a colonoscopy in May 2022 with a large polyp removed. 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 this was discussed with endoscopy, and stated that the lesion was around the level of 20 cm. I proceeded to do a flexible sigmoidoscopy yesterday. There were no lesions seen although there seemed to be some fibrotic changes of the mucosa that resembled a scar at level 30 cm. I marked this area with Endo ink. The patient under was to the planned procedure of sigmoid resection, hand assisted laparoscopic. She understood the risks, benefits, and alternatives. She has given consent. Her was involved with the discussions. She was brought to the operating room. She was placed in modified lithotomy position under general anesthesia via endotracheal tube. The abdomen and the perineum and perianal areas were prepped and draped in the usual sterile fashion. A Peterson catheter had been inserted. A surgical time-out was done earlier. The patient received Cefotan 2 g IV preoperatively. The right arm was tucked to the side. We made sure that all pressure points on the skin were protected. a short midline incision at the umbilical area was made using blade 15. This was carried down with electrocautery through the full-thickness of the skin subcutaneous fat to the fascia the fascia was incised. The peritoneum was entered. The Reno wound retractor process was positioned. The GelPort packing was placed. Insufflation was achieved through a port through the GelPort to a pressure of 15 mm hg. With laparoscopic visualization through the GelPort, I proceeded to insert a 5/12 mm port in the gastric area midline. I moved the 10 mm 30 degree scope through this port. I proceeded to insert another 5/12 mm port in the right lower quadrant. The patient was placed in a steep head-down right side down position. My hand was inserted through the GelPort. I reflected all the bowel loops away from the pelvis. I was able to visualize the rectum. I followed this palpation all the way to the splenic flexure. The there were no lesions identified nor palpated. I could see the tattooed area in the sigmoid colon. Proceeded to mobilize the left colon by dividing the ligamentous attachments along the lot line of Toldt using the LigaSure. I extended this incision on the peritoneum of the sigmoid distally on the left side to the rectosigmoid and rectum to open up the lateral attachments. This was done on the side of the rectum as well. I shows a point in the rectos igmoid area just below the sacral promontory as my point of transection. I mobilized the attachments on both the left and right side on this area of the rectum using the LigaSure by doing so, as able to then create a mesenteric defect at the rectosigmoid. I used a powered Ethicon stapler to divide this. This was a 60 mm stapler that was used. I incised the peritoneum of the rest of the sigmoid on both the left and right side. I chose my point of transection 6 mm proximal to the tattooed barking. I created a mesenteric window. I divided this with the stapler in the same fashion as above. I proceeded to then pull up this entire sigmoid through the Reno wound retractor. I transected this using the LigaSure both proximal distal, preserving as much of the lymphatic basin as possible. I thinned out the pedicle once this was identified.. Once this was clearly identified, I proceeded to then clamp this with a Radhika and this was divided between Radhika clamps. I ligated the proximal of the pedicle with 2 Dexon 2-0 ties. The specimen was delivered and sent for pathology. I marked the proximal segment with a stitch at the the proximal resection. this appeared be well vascularized without any ischemic changes. I excise the staple line with electrocautery. This Lee was dilated using the dilators to 28 mm easily without difficulty. Therefore used the 28 mm EEA stapler. I positioned the anvil through the lumen after applying a pursestring through the full-thickness using a in 2-0 stitch. I tightened the pursestring around the anvil. I made sure that there were no fatty tissue around the stump. I then post position the stump into the pelvis, making sure that there was no twisting. I replaced the GelPort. The 1st hearing aid assistant, RENAE Zepeda then proceeded to the dilator identify the stump all the way to the staple line. She then proceeded to position the EEA apparatus through the anus and advanced this to the staple line. We chose the area anterior to the staple line this spike was activated through this area. I attached the anvil into the spike until this locked into place. We tightened the stapler gently to make sure that there was no tissue caught between the 2 stumps. This was fired and the entire EA apparatus was removed gently. Both anastomotic rings appear to be intact. I then proceeded to do a leak test by immersing the states the anastomotic line in irrigation fluid. The rectum was insufflated with air using a bulb syringe multiple times and there was no bubbling with the staple line seen. The left colon appeared to distend with insufflation. I then proceeded to do an intraop flexible sigmoidoscopy to examine the nipple line from within the mucosal side. The scope was gradually advanced with insufflation past the staple line. I examined the entire staple line and the the anastomosis carefully. There was no area of ischemia and the mucosa appeared healthy although mildly erythematous. The staple line also appeared intact endoscopically. There was no active bleeding from the staple line. The scope was then completely removed. We then proceeded to reinsufflate and examined the peritoneum laparoscopically. There was no evidence of any bowel injury. There was note of good hemostasis in the pelvis as well as the left gutter. There was no tension on the anastomosis. I desufflated completely. I removed the right lower quadrant port. I closed the fascia with a running Maxon 1 stitch. I then examined the midline incision laparoscopically and this appeared to be intact with no bowel caught with the sutures I closed all skin incisions were closed with josh. All incisions were infiltrated with Marcaine 0.5% for postop analgesia. Dressings were applied. The procedure was then completed The patient tolerated procedure well. There were no immediate complications. Initial and final counts of sponges and instruments were correct. Estimated blood loss about 100 cc The patient was extubated without difficulty and transferred to the recovery room with stable vital signs. Colon Resection Tumor location: Sigmoid colon Extent of lymphovascular resection Sigmoid colon: resection of entire sigmoid distal left colon incl. lymphovascular basin General Surg. - Synoptic Notes Colon Resection Tumor location: Sigmoid colon Extent of Lymphovascular Resection: Sigmoid colon: resection of entire sigmoid distal left colon incl. lymphovascular basin
--- OUTSIDE RECORDS SUMMARY | 2022-07-31 11:58 | XMS_ITS | Continuity of Care Document ---
Author Name Unknown Organization [facility] Address [address] [place] [address]- Care Team Providers Care Wood Heel Attacher Name Role Phone Eleonora SHIPLEY, Marah Adhikari Primary Care Physician [facility] 02/02/20 - 02/09/20 [facility] [address] [place], [place] [address] Attending Physician: Marah Crews MD Allergies, Adverse Reactions, Alerts Substance Reaction Severity Status NKA Active Immunizations Given and Recorded Vaccine Date Status Refusal Reason tetanus-diphtheria toxoids (Td) 1 05/19/19 Given influenza virus vaccine, inactivated 2 02/07/19 Gi jenifer influenza virus vaccine, inactivated 3 01/15/18 Re corded influenza virus vaccine, inactivated 01/10/15 Tobin rded influenza virus vaccine, inactivated 4 01/16/10 Gi jenifer pneumococcal 23-valent vaccine 5 01/15/18 Recorded pneumococcal 13-valent vaccine 6 05/13/17 Given pneumococcal 13-valent vaccine 7 01/16/15 Recorded tetanus/diphtheria/pertussis, acel(Tdap) 04/05/09 Recorded Zoster Vaccine Live 03/20/09 Given 1Result Comment: [id number] 2Result Comment: [facility]:[id number] 3Result Comment: [01/17/2018] MARIE 4Admin Note: MANUFACTURE BIOMEDICAL INFO SHEET GIVEN GIVEN W/O INCIDENT 5Result Comment: [01/17/2018] MARIE 6Result Comment: [05/13/2017] [facility] [id number] 7Result Comment: [01/25/2015] MAIRE Medications Afinitor By Mouth, Daily, 0 Refills, Maintenance, 02/02/20 16:44:00 EDT Start Date: 02/02/20 Status: Ordered calcium gluconate 500 mg oral tablet 1 tablet = 500 mg, By Mouth, 3 times a day, 0 Refills, Maintenance, 07/02/16 14:31:46 Start Date: 07/02/16 Status: Ordered LORazepam 0.5 mg oral tablet 1 tablet = 0.5 mg, By Mouth, 3 times a day, PRN as needed for anxiety, 0 Refills, Maintenance, 10/13/18 12:52:19 EDT Start Date: 10/13/18 Status: Ordered Magnesium Gluconate = 400 mg, By Mouth, 2 times a day, 0 Refills, Maintenance, 05/13/17 10:03:29 EST Start Date: 05/13/17 Status: Ordered metoprolol 25 mg oral tablet, extended release 25 mg, 1, tablet, By Mouth, Daily, # 30 tablet, Refills 0, Tot. Refills 0, Maintenance, 02/02/20 17:19:00 EDT, Route to Pharmacy Electronically, [facility] #[id number], 164, cm, 02/02/20 16:26:00 EDT, Height, 65.9, kg, 08/24/19 9:03:00 EDT, Dry W... Start Date: 02/02/20 Status: Ordered omeprazole 20 mg oral delayed release tablet 1 tablet = 20 mg, By Mouth, Daily, 0 Refills, Maintenance, 05/13/17 10:03:00 Start Date: 05/13/17 Status: Ordered tamoxifen 20 mg oral tablet 1 tablet = 20 mg, By Mouth, Daily, 0 Refills, Maintenance, 02/02/20 16:44:00 EDT Start Date: 02/02/20 Status: Ordered Vitamin B12 = 250 mcg, By Mouth, Daily, 0 Refills, Maintenance, 05/13/17 10:03:34 EST Start Date: 05/13/17 Status: Ordered Vitamin D3 = 2,000 International_Units, By Mouth, Daily, 0 Refills, Maintenance, 01/21/15 14:13:10 EDT Start Date: 01/21/15 Status: Ordered Xgeva 120 mg/1.7 mL subcutaneous solution Subcutaneous Infusion, every 90 days, 0 Refills, Maintenance, 07/02/16 14:30:33 EDT Start Date: 07/02/16 Status: Ordered Problem List Condition Effective Dates Status Health Status Inform ant Breast cancer metastasized t o liver(Confirmed) Active Vital Signs Most recent to oldest [Reference Range]: 1 Height 164 cm (02/02/20 4:26 PM) Weight 63.6 kg (02/02/20 4:26 PM) Oxygen Saturation [94-100 %] 97 % (02/02/20 4:26 PM) Pulse Rate [55-90 bpm] 89 bpm (02/02/20 4:26 PM) Body Mass Index [18.5-24.99] 23.65 (02/02/20 4:26 PM) Blood Pressure [90-138/55-84 mm Hg] 164/ 102mm Hg *H* (02/02/20 4:26 PM) Temperature [96.8-100.4 DegF] 97.8 DegF (02/02/20 4:26 PM) Mode of Delivery (Oxygen) Room air (02/02/20 4:26 PM) Blood pressure sites Arm, left (02/02/20 4:26 PM) Temperature Route Temporal (02/02/20 4:26 PM) Weight Obtained Via Standing scale (02/02/20 4:26 PM) Social History Social History Type Response Smoking Status Never smoker entered on: 06/10/15 Sex
--- OUTSIDE RECORDS SUMMARY | 2022-07-31 11:58 | XMS_ITS | Continuity of Care Document ---
Author Name Unknown Organization [facility] Address [address] [place] [address]- Care Team Providers Care Project Management Analyst Name Role Phone Eleonora SHIPLEY, Marah Adhikari Primary Care Physician [facility]): 07/20/21 - 08/19/21 [facility] [address] [place] [address]- Allergies, Adverse Reactions, Alerts No Known Allergies Immunizations Given and Recorded Vaccine Date Status Refusal Reason SARS-CoV-2 mRNA ([id number]) vax 1 07/17/21 Recorded influenza virus vaccine, inactivated 01/06/21 Tobin rded influenza virus vaccine, inactivated 01/10/20 Tobin rded influenza virus vaccine, inactivated 2 02/07/19 Gi jenifer influenza virus vaccine, inactivated 3 01/15/18 Re corded influenza virus vaccine, inactivated 01/16/17 Tobin rded influenza virus vaccine, inactivated 01/10/15 Tobin rded influenza virus vaccine, inactivated 02/28/14 Tobin rded influenza virus vaccine, inactivated 01/05/11 Tobin rded influenza virus vaccine, inactivated 4 01/16/10 Gi jenifer SARS-CoV-2 (COVID-19) mRNA BNT-162b2 vac 5 12/31/20 Recorded SARS-CoV-2 (COVID-19) mRNA BNT-162b2 vac 6 06/05/20 Recorded SARS-CoV-2 (COVID-19) mRNA BNT-162b2 vac 7 05/15/20 Recorded tetanus-diphtheria toxoids (Td) 8 05/19/19 Given pneumococcal 23-valent vaccine 9 01/15/18 Recorded pneumococcal 13-valent vaccine 10 05/13/17 Given pneumococcal 13-valent vaccine 11 01/16/15 Recorde d tetanus/diphtheria/pertussis, acel(Tdap) 04/05/09 Recorded Zoster Vaccine Live 03/20/09 Given 1Result Comment: [facility] 2Result Comment: [facility]:[id number] 3Result Comment: [01/17/2018] MARIE 4Admin Note: MANUFACTURE BIOMEDICAL INFO SHEET GIVEN GIVEN W/O INCIDENT 5Result Comment: Done at [facility] 6Result Comment: Done at [facility] 7Result Comment: Done at [facility] 8Result Comment: [id number] 9Result Comment: [01/17/2018] MARIEGRZAS 10Result Comment: [05/13/2017] [facility] [id number] 11Result Comment: [01/25/2015] MARIE Medications Afinitor By Mouth, Daily, 0 Refills, Maintenance, 02/02/20 16:44:00 EDT Start Date: 02/02/20 Status: Ordered calcium-vitamin D 250 mg-200 intl units oral tablet 1 tablet, By Mouth, 2 times a day, 0 Refills, Maintenance, 07/15/21 10:15:00 EDT, Partial fill uponpatient request if the prescription is for a schedule II opioid drug. Start Date: 07/15/21 Status: Ordered Flonase 50 mcg/inh nasal spray 1 sprays, Nares, Both, 2 times a day, # 16 Gm, 1 Refills, Maintenance, 07/15/21 10:34:00 EDT, [place], [facility]/pharmacy #[id number], Partial fill upon patient request if the prescription is for a schedule II opioid drug., 1 sprays Nares, Both 2 times a day,x30 d... Start Date: 07/15/21 Stop Date: 09/13/21 Status: Ordered hydrochlorothiazide 12.5 mg oral tablet 1 tablet = 12.5 mg, By Mouth, Daily, # 90 tablet, 3 Refills, Maintenance, 07/22/21 11:22:00 EDT, [place]t, [facility]/pharmacy #[id number], 164, cm, 07/15/21 9:32:00 EDT, Height, 58, kg, 04/16/20 13:23:00 EST, DryWeight Start Date: 07/22/21 Stop Date: 07/17/22 Status: Ordered irbesartan 150 mg oral tablet 1 tablet = 150 mg, By Mouth, Daily, # 90 tablet, 3 Refills, Maintenance, 09/17/20 10:40:00 EDT, Tablet, [facility] BY MAIL , lisinopril caused dry cough, 164, cm, 09/17/20 10:06:00 EDT, Height, 58, kg, 04/16/20 13:23:00 EST, Dry Weight Start Date: 09/17/20 Stop Date: 09/12/21 Status: Ordered Magnesium Gluconate = 400 mg, By Mouth, 2 times a day, 0 Refills, Maintenance, 05/13/17 10:03:29 EST Start Date: 05/13/17 Status: Ordered tamoxifen 20 mg oral tablet 1 tablet = 20 mg, By Mouth, Daily, 0 Refills, Maintenance, 02/02/20 16:44:00 EDT Start Date: 02/02/20 Status: Ordered Vitamin B12 0 Refills, Maintenance, 07/15/21 10:15:00 EDT, Partial fill upon patient request if the prescription is for a schedule II opioid drug. Start Date: 07/15/21 Status: Ordered Vitamin C By Mouth, Daily, 0 Refills, Maintenance, 07/15/21 10:15:00 EDT, Partial fill upon patient request if the prescription is for a schedule II opioid drug. Start Date: 07/15/21 Status: Ordered Xgeva 120 mg/1.7 mL subcutaneous solution See Instructions, 120 mg Subcutaneous Infusion Q 3 MOS, 0 Refills, Maintenance, 09/13/20 9:40:00 EDT, Partial fill upon patient request if the prescription is for a schedule II opioid drug. Start Date: 09/13/20 Status: Ordered Zinc = 140 mg, By Mouth, Daily, 0 Refills, Maintenance, 07/15/21 10:15:00 EDT, Partial fill upon patientrequest if the prescription is for a schedule II opioid drug. Start Date: 07/15/21 Status: Ordered Problem List Condition Effective Dates Status Health Status Inform ant Hypertension(Confirmed) Active Breast cancer metastasized t o liver(Confirmed) Active Social History Social History Type Response Smoking Status Never smoker entered on: 06/10/15 Sex
--- OUTSIDE RECORDS SUMMARY | 2022-07-31 11:58 | XMS_ITS | Continuity of Care Document ---
Author Name Unknown Organization [facility] Address [address] [place] [address]- Care Team Providers Care Production Support Manager Name Role Phone Eleonora SHIPLEY, Marah Adhikari Primary Care Physician [facility]s): 03/15/20 - 03/22/20 [facility] [address] [place] [address]- Encounter Diagnosis Abdominal pain(Discharge Diagnosis) - 03/15/20 Attending Physician: Porfirio Oden MD Allergies, Adverse Reactions, Alerts Substance Reaction [...] Zoster Vaccine Live 03/20/09 Given 1Result Comment: [id number] 2Result Comment: [facility]:[id number] 3Result Comment: [01/17/2018] MARIE 4Admin Note: MANUFACTURE BIOMEDICAL INFO SHEET GIVEN GIVEN W/O INCIDENT 5Result Comment: [01/17/2018] MARIE 6Result Comment: [05/13/2017] [facility] [id number] 7Result Comment: [01/25/2015] [facility] Medications Afinitor By Mouth, Daily, 0 Refills, Maintenance, 02/02/20 16:44:00 EDT Start Date: 02/02/20 Status: Ordered calcium gluconate 500 mg oral tablet 1 tablet = 500 mg, By Mouth, 3 times a day, 0 Refills, Maintenance, 07/02/16 14:31:46 Start Date: 07/02/16 Status: Ordered dicyclomine 10 mg oral capsule See Instructions, 1 capsule By Mouth 2 times a day before breakfast and supper as needed for abdominal cramps, # 30 each, 1 Refills, Maintenance, 03/15/20 16:31:00 EST, Caps[place], [facility]/pharmacy #[id number], Partial fill upon patient request if the prescription... Start Date: 03/15/20 Status: Ordered lisinopril 10 mg oral tablet 10 mg, 1, tablet, By Mouth, Daily, STOP METOPROLOL, # 30 tablet, Refills 0, Tot. Refills 0, Maintenance, 03/01/20 13:37:00 EST, Route to Pharmacy Electronically, [facility]/pharmacy #[id number], Partial fill uponpatient request, 164, cm, 02/26/20 13:09:00 EST, He... Start Date: 03/01/20 Status: Ordered LORazepam 0.5 mg oral tablet 1 tablet = 0.5 mg, By Mouth, PRN as needed for anxiety, 0 Refills, [...] 02/02/20 17:19:00 EDT, Route to Pharmacy Electronically, [id number], 164, cm, 02/02/20 16:26:00 EDT, Height, 65.9, [...] Breast cancer metastasized t o liver(Confirmed) Active Diagnosis Diagnosis Type Effective Dates Health Status Cl inical Service Informant Abdominal pain Discharge Diagnosis 03/15/20 Social History Social History Type Response Smoking Status Never smoker entered on: 06/10/15 Sex
--- OUTSIDE RECORDS SUMMARY | 2022-07-31 11:58 | XMS_ITS | Continuity of Care Document ---
Author Name Unknown Organization [facility] Address [address] [place] [address]- Care Team Providers Care Accessioner Name Role Phone Eleonora SHIPLEY, Marah Adhikari Primary Care Physician [phone] [facility]counter [facility] Date(s): 04/26/22 - 05/26/22 [facility] [address] [place], [place] [address] Allergies, Adverse Reactions, Alerts No Known Allergies Immunizations Given and Recorded Vaccine Date Status Refusal Reason influenza virus vaccine, inactivated 12/18/21 Tboin rded influenza virus vaccine, inactivated 01/06/21 Tobin rded influenza virus vaccine, inactivated 01/10/20 Tobin rded influenza virus vaccine, inactivated 1 02/07/19 Gi jenifer influenza virus vaccine, inactivated 2 01/15/18 Re corded influenza virus vaccine, inactivated 01/16/17 Tobin rded influenza virus vaccine, inactivated 01/10/15 Tobin rded influenza virus vaccine, inactivated 02/28/14 Tobin rded influenza virus vaccine, inactivated 01/05/11 Tobin rded influenza virus vaccine, inactivated 3 01/16/10 Gi jenifer SARS-CoV-2 mRNA ([id number]) vax 4 07/17/21 Recorded SARS-CoV-2 (COVID-19) mRNA BNT-162b2 vac 5 12/31/20 Recorded SARS-CoV-2 (COVID-19) mRNA BNT-162b2 vac 6 06/05/20 Recorded SARS-CoV-2 (COVID-19) mRNA BNT-162b2 vac 7 05/15/20 Recorded tetanus-diphtheria toxoids (Td) 8 05/19/19 Given pneumococcal 23-valent vaccine 9 01/15/18 Recorded pneumococcal 13-valent vaccine 10 05/13/17 Given pneumococcal 13-valent vaccine 11 01/16/15 Recorde d tetanus/diphtheria/pertussis, acel(Tdap) 04/05/09 Recorded Zoster Vaccine Live 03/20/09 Given 1Result Comment: [facility]:[id number] 2Result Comment: [01/17/2018] MARIE 3Admin Note: MANUFACTURE BIOMEDICAL INFO SHEET GIVEN GIVEN W/O INCIDENT 4Result Comment: [facility] 5Result Comment: Done at [facility] 6Result Comment: Done at [facility] 7Result Comment: Done at [facility] 8Result Comment: [id number] 9Result Comment: [01/17/2018] MARIE 10Result Comment: [05/13/2017] [facility] [id number] 11Result Comment: [01/25/2015] MARIE Medications Afinitor By [...] Gm, 1 Refills, Maintenance, 07/15/21 10:34:00 EDT, [place], [facility]/pharmacy #[id number], Partial fill upon patient request if the prescription is for a schedule II opioid drug., 1 sprays Nares, Both 2 times a day,x30 d... Start Date: 07/15/21 Stop Date: 09/13/21 Status: Ordered irbesartan 150 mg oral tablet 1 tablet = 150 mg, By Mouth, Daily, # 90 tablet, 1 Refills, Maintenance, 10/28/21 9:08:00 EDT, Tablet, [facility] [place], lisinopril caused dry cough, 164, cm, 09/17/21 10:47:00 EDT, Height, 61, kg, 09/17/21 10:47:00 EDT, Dry Weight Start Date: 10/28/21 Stop Date: 04/26/22 Status: Ordered Magnesium Gluconate = 400 mg, [...] Date: 07/15/21 Status: Ordered Problem List Condition Confirmation Course Effective Dates Status Health [facility] Informant Hypertension Confirmed Active Breast cancer metastasized to liver Confirmed Active Social History Social History Type Response Smoking Status Never smoker entered on: 06/10/15 Sex Patient Care team information Care Team Personnel Name: Marah Crews MD Position: [facility] Primary Care Physician Member Role: PCP Address: Address: [address] [place] [address] Adult & [place] [address]- Name: [place] SHIPLEY, Njogu Position: [facility] Physician (General Medicine) Member Role: Lifetime Consulting Physician Address: Address: [address] [place] [address] Radiology and Imaging [place], [place] [address] Care Team Related Persons Name: JOANNA GONZALEZ Address: [place] [address] Name: MORALES GONZALEZ Address: home [address] [place] [address]
--- OUTSIDE RECORDS SUMMARY | 2022-07-31 11:58 | XMS_ITS | Continuity of Care Document ---
Author Name Unknown Organization [facility] Address [address] [place] [address]- Care Team Providers Care Process Treater Name Role Phone Eleonora SHIPLEY, Marah Adhikari Primary Care Physician [facility] - 06/26/20 [facility] [address] [place], [place] [address] Allergies, Adverse Reactions, Alerts Substance Reaction Severity [...] Zoster Vaccine Live 03/20/09 Given 1Result Comment: [id number] 2Result Comment: [facility]:[id number] 3Result Comment: [01/17/2018] MARIE 4Admin Note: MANUFACTURE BIOMEDICAL INFO SHEET GIVEN GIVEN W/O INCIDENT 5Result Comment: [01/17/2018] MARIE 6Result Comment: [05/13/2017] [facility] [place][note 2] [id number] 7Result Comment: [01/25/2015] MARIE Medications Afinitor By Mouth, Daily, 0 Refills, Maintenance, 02/02/20 16:44:00 EDT Start Date: 02/02/20 Status: Ordered furosemide 20 mg oral tablet 1, tablet, By Mouth, Daily, # 30 tablet, Refills 0, Tot. Refills 0, Maintenance, 06/11/20 11:31:00 EST, Route to Pharmacy Electronically, [id number], 164, cm, 06/10/20 9:33:00 EST, Height, 58, kg, 04/16/20 13:23:00 EST, Dry Weight Start Date: 06/11/20 Status: Ordered irbesartan 75 mg oral tablet 1 tablet = 75 mg, By Mouth, Daily, # 30 tablet, 0 Refills, Maintenance, 06/10/20 9:35:00 EST, Tablet, Partial fill upon patient request if the prescription is for a schedule II opioid drug. Start Date: 06/10/20 Status: Ordered LORazepam 0.5 mg oral tablet [...] 16:44:00 EDT Start Date: 02/02/20 Status: Ordered Problem List Condition Effective Dates Status Health Status Inform ant Hypertension(Confirmed) Active Breast cancer metastasized t o liver(Confirmed) Active Social History Social History Type Response Smoking Status Never smoker entered on: 06/10/15 Sex"
--- OUTSIDE RECORDS SUMMARY | 2022-07-31 11:58 | XMS_ITS | Continuity of Care Document ---
Author Name Unknown Organization [facility] Address [address] [place] [address]- Care Team Providers Care Surgical Forceps Fabricator Name Role Phone Eleonora SHIPLEY, Marah Adhikari Primary Care Physician [phone] [facility] Date(s): 08/24/19 - 08/24/[address] [address] [facility] Discharge Disposition: A-D/C Home Attending Physician: Maya Rhoades MD Admitting Physician: Maya Rhoades MD Referring Physician: Alisson Neff MD Allergies, Adverse Reactions, Alerts Substance Reaction [...] Zoster Vaccine Live 03/20/09 Given 1Result Comment: [id number] 2Result Comment: [facility]:[id number] 3Result Comment: [01/17/2018] MARIE 4Admin Note: MANUFACTURE BIOMEDICAL INFO SHEET GIVEN GIVEN W/O INCIDENT 5Result Comment: [01/17/2018] MARIE 6Result Comment: [05/13/2017] [facility] [id number] 7Result Comment: [01/25/2015] [facility] Medications calcium gluconate 500 mg oral tablet 1 tablet = 500 mg, By Mouth, 3 times a day, 0 Refills, Maintenance, 07/02/16 14:31:46 Start Date: 07/02/16 Status: Ordered exemestane 25 mg oral tablet 0 Refills, Maintenance, 05/19/19 15:03:00 EST Start Date: 05/19/19 Status: Ordered LORazepam 0.5 mg oral tablet 1 tablet = 0.5 mg, By Mouth, 3 times a day, PRN as needed for anxiety, 0 Refills, Maintenance, 10/13/18 12:52:19 EDT Start Date: 10/13/18 Status: Ordered Magnesium Gluconate = 400 mg, By Mouth, 2 times a day, 0 Refills, Maintenance, 05/13/17 10:03:29 EST Start Date: 05/13/17 Status: Ordered omeprazole 20 mg oral delayed release tablet 1 tablet = 20 mg, By Mouth, Daily, 0 Refills, Maintenance, 05/13/17 10:03:00 Start Date: 05/13/17 Status: Ordered palbociclib 75 mg oral capsule 1 capsule = 75 mg, By Mouth, Daily, daily for 21 days, then off for 7 days, 0 Refills, Maintenance,05/19/19 15:04:00 EST, Capsule Start Date: 05/19/19 Status: Ordered Vitamin B12 = 250 mcg, [...] Most recent to oldest [Reference Range]: 1 2 Height 164 cm (08/24/19 9:42 AM) 164 cm (08/24/19 9:03 AM) Weight 65.9 kg (08/24/19 9:03 AM) Oxygen Saturation [94-100 %] 99 % (08/24/19 9:03 AM) Pulse Rate [55-90 bpm] 75 bpm (08/24/19 9:03 AM) Blood Pressure [90-138/55-84 mm Hg] 148/ 80mm Hg *H* (08/24/19 9:42 AM) 170/83mm Hg *H* (08/24/19 9:03 AM) Respiratory Rate [16-30 br/min] 16 br/mi n (08/24/19 10:20 AM) 18 br/min (08/24/19 9:03 AM) Temperature [96.8-100.4 DegF] 97.4 DegF (08/24/19 9:03 AM) Mode of Delivery (Oxygen) Room air (08/24/19 9:03 AM) Blood pressure sites Arm, left (08/24/19 9:03 AM) Temperature Route Oral (08/24/19 9:03 AM) Dry Weight 65.9 kg (08/24/19 9:03 AM) Social History Social History Type Response Smoking Status Never smoker entered on: 06/10/15 Sex
--- OUTSIDE RECORDS SUMMARY | 2022-07-31 11:58 | XMS_ITS | Continuity of Care Document ---
Author Name Unknown Organization [facility] Address [address] [place] [address]- Care Team Providers Care Community Advocate Name Role Phone Eleonora SHIPLEY, Marah Adhikari Primary Care Physician [facility]): 05/24/20 - 06/23/20 [facility] [address] [place] [address] Allergies, Adverse Reactions, Alerts Substance Reaction Severity [...] Zoster Vaccine Live 03/20/09 Given 1Result Comment: [id number] 2Result Comment: [facility]:[id number] 3Result Comment: [01/17/2018] MARIE 4Admin Note: MANUFACTURE BIOMEDICAL INFO SHEET GIVEN GIVEN W/O INCIDENT 5Result Comment: [01/17/2018] MARIE 6Result Comment: [05/13/2017] [facility] [id number] 7Result Comment: [01/25/2015] MARIE Medications Afinitor By Mouth, Daily, 0 Refills, Maintenance, 02/02/20 16:44:00 EDT Start Date: 02/02/20 Status: Ordered furosemide 20 mg oral tablet 1, tablet, By Mouth, Daily, # 30 tablet, Refills 0, Tot. Refills 0, Maintenance, 06/11/20 11:31:00 EST, Route to Pharmacy Electronically, [id number], 164, cm, 06/10/20 9:33:00 EST, Height, 58, [...]
--- OUTSIDE RECORDS SUMMARY | 2022-07-31 11:58 | XMS_ITS | Continuity of Care Document ---
Author Name Unknown Organization [facility] Address [address] [place] [address]- Care Team Providers Care Retail Sales Associate Name Role Phone Eleonora SHIPLEY, Marah Adhikari Primary Care Physician [phone] [facility]): 03/13/19 - 03/23/19 [facility] [address] [place] [address]- [facility] Attending Physician: Sho Atkins Admitting Physician: Sho Atkins Referring Physician: AdmtrSho Allergies, Adverse Reactions, Alerts Substance Reaction Severity Status NKA Active Immunizations Given and Recorded Vaccine Date Status Refusal Reason influenza virus vaccine, inactivated 1 02/07/19 Gi jenifer influenza virus vaccine, inactivated 2 01/15/18 Re corded influenza virus vaccine, inactivated 01/10/15 Tobin rded influenza virus vaccine, inactivated 3 01/16/10 Gi jenifer pneumococcal 23-valent vaccine 4 01/15/18 Recorded pneumococcal 13-valent vaccine 5 05/13/17 Given pneumococcal 13-valent vaccine 6 01/16/15 Recorded tetanus/diphtheria/pertussis, acel(Tdap) 04/05/09 Recorded Zoster Vaccine Live 03/20/09 Given 1Result Comment: [facility]:[id number] 2Result Comment: [01/17/2018] MARIE 3Admin Note: MANUFACTURE BIOMEDICAL INFO SHEET GIVEN GIVEN W/O INCIDENT 4Result Comment: [01/17/2018] MARIE 5Result Comment: [05/13/2017] [facility] [id number] 6Result Comment: [01/25/2015] MARIE Medications calcium gluconate 500 mg oral tablet 1 tablet = 500 mg, By Mouth, 3 times a day, 0 Refills, Maintenance, 07/02/16 14:31:46 Start Date: 07/02/16 Status: Ordered Faslodex 50 mg/ml intramuscular injection 1 mL = 50 mg, Intramuscular, Every 30 days, # 5 mL, 0 Refills, Maintenance, 01/21/15 13:37:30, Solution Start Date: 01/21/15 Status: Ordered LORazepam 0.5 mg oral tablet [...] 05/13/17 10:03:00 Start Date: 05/13/17 Status: Ordered Vitamin B12 = 250 mcg, [...]
--- OUTSIDE RECORDS SUMMARY | 2022-07-31 11:58 | XMS_ITS | Continuity of Care Document ---
Author Name Unknown Organization [facility] Address [address] [place] [address]- Care Team Providers Care Medical Dir Name Role Phone Eleonora SHIPLEY, Marah Adhikari Primary Care Physician [facility]s): 08/05/20 - 09/04/20 [facility] [address] [place] [address]- Allergies, Adverse Reactions, Alerts Substance Reaction Severity Status NKA Active Immunizations Given and Recorded Vaccine Date Status Refusal Reason SARS-CoV-2 (COVID-19) mRNA BNT-162b2 vac 1 06/05/20 Recorded SARS-CoV-2 (COVID-19) mRNA BNT-162b2 vac 2 05/15/20 Recorded tetanus-diphtheria toxoids (Td) 3 05/19/19 Given influenza virus vaccine, inactivated 4 02/07/19 Gi jenifer influenza virus vaccine, inactivated 5 01/15/18 Re corded influenza virus vaccine, inactivated 01/10/15 Tobin rded influenza virus vaccine, inactivated 6 01/16/10 Gi jenifer pneumococcal 23-valent vaccine 7 01/15/18 Recorded pneumococcal 13-valent vaccine 8 05/13/17 Given pneumococcal 13-valent vaccine 9 01/16/15 Recorded tetanus/diphtheria/pertussis, acel(Tdap) 04/05/09 Recorded Zoster Vaccine Live 03/20/09 Given 1Result Comment: Done at [facility] 2Result Comment: Done at [facility] 3Result Comment: [id number] 4Result Comment: [facility]:[id number] 5Result Comment: [01/17/2018] MARIE 6Admin Note: MANUFACTURE BIOMEDICAL INFO SHEET GIVEN GIVEN W/O INCIDENT 7Result Comment: [01/17/2018] [facility] 8Result Comment: [05/13/2017] [facility] [id number] 9Result Comment: [01/25/2015] MARIE Medications Afinitor By Mouth, Daily, 0 Refills, Maintenance, 02/02/20 16:44:00 EDT Start Date: 02/02/20 Status: Ordered furosemide 20 mg oral tablet 1, tablet, By Mouth, Daily, # 30 tablet, Refills 0, Tot. Refills 0, Maintenance, 06/11/20 11:31:00 EST, Route to Pharmacy Electronically, [id number], 164, cm, 06/10/20 9:33:00 EST, Height, 58, [...]
--- OUTSIDE RECORDS SUMMARY | 2022-07-31 11:59 | XMS_ITS | Continuity of Care Document ---
Author Name Unknown Organization [facility] Address [address] [place] [address]- Care Team Providers Care Professor Of Education Name Role Phone Eleonora SHIPLEY, Marah Adhikari Primary Care Physician [phone] Encounter [facility] Date(s): 08/02/20 - 08/09/20 [facility] [address] [place] [address]- Attending Physician: Marah Crews MD Allergies, Adverse [...] Live 03/20/09 Given 1Result Comment: Done at [facility] 2Result Comment: Done at [facility] 3Result Comment: [id number] 4Result Comment: [facility]:[id number] 5Result Comment: [01/17/2018] MARIE 6Admin Note: MANUFACTURE BIOMEDICAL INFO SHEET GIVEN GIVEN W/O INCIDENT 7Result Comment: [01/17/2018] [facility] 8Result Comment: [05/13/2017] [facility] [id number] 9Result Comment: [01/25/2015] MARIE Medications Afinitor By Mouth, Daily, 0 Refills, Maintenance, 02/02/20 16:44:00 EDT Start Date: 02/02/20 Status: Ordered furosemide 20 mg oral tablet 1, tablet, By Mouth, Daily, # 30 tablet, Refills 0, Tot. Refills 0, Maintenance, 06/11/20 11:31:00 EST, Route to Pharmacy Electronically, [facility], 164, cm, 06/10/20 9:33:00 EST, Height, 58, [...] oldest [Reference Range]: 1 Height 164 cm (08/02/20 8:51 AM) Weight 62.3 kg (08/02/20 8:51 AM) Oxygen Saturation [94-100 %] 99 % (08/02/20 8:51 AM) Pulse Rate [55-90 bpm] 79 bpm (08/02/20 8:51 AM) Body Mass Index [18.5-24.99] 23.16 (08/02/20 8:51 AM) Blood Pressure [90-138/55-84 mm Hg] 138/ 80mm Hg (08/02/20 8:51 AM) Temperature [96.8-100.4 DegF] 98.1 DegF (08/02/20 8:51 AM) Mode of Delivery (Oxygen) Room air (08/02/20 8:51 AM) Blood pressure sites Arm, left (08/02/20 8:51 AM) Temperature Route Temporal (08/02/20 8:51 AM) Weight Obtained Via Standing scale (08/02/20 8:51 AM) Social History Social History Type Response Smoking Status Never smoker entered on: 06/10/15 Sex
--- OUTSIDE RECORDS SUMMARY | 2022-07-31 11:59 | XMS_ITS | Continuity of Care Document ---
Author Name Unknown Organization [facility] Address [address] [place] [address]- Care Team Providers Care Mechanical Detailer Name Role Phone Marah Crews MD Primary Care Physician [phone] [place] [facility] Date(s): 09/17/20 - 09/24/20 [facility] [address] [place] [address]- Attending Physician: Marah Crews MD Allergies, Adverse Reactions, Alerts Substance Reaction Severity Status NKA Active Immunizations Given and Recorded Vaccine Date Status Refusal Reason SARS-CoV-2 (COVID-19) mRNA BNT-162b2 vac 1 06/05/20 Recorded SARS-CoV-2 (COVID-19) mRNA BNT-162b2 vac 2 05/15/20 Recorded influenza virus vaccine, inactivated 01/10/20 Tobin rded influenza virus vaccine, inactivated 3 02/07/19 Gi jenifer influenza virus vaccine, inactivated 4 01/15/18 Re corded influenza virus vaccine, inactivated 01/16/17 Tobin rded influenza virus vaccine, inactivated 01/10/15 Tobin rded influenza virus vaccine, inactivated 02/28/14 Tobin rded influenza virus vaccine, inactivated 01/05/11 Tobin rded influenza virus vaccine, inactivated 5 01/16/10 Gi jenifer tetanus-diphtheria toxoids (Td) 6 05/19/19 Given pneumococcal 23-valent vaccine 7 01/15/18 Recorded pneumococcal 13-valent vaccine 8 05/13/17 Given pneumococcal 13-valent vaccine 9 01/16/15 Recorded tetanus/diphtheria/pertussis, acel(Tdap) 04/05/09 Recorded Zoster Vaccine Live 03/20/09 Given 1Result Comment: Done at [facility] 2Result Comment: Done at [facility] 3Result Comment: [facility]:[id number] 4Result Comment: [01/17/2018] MARIE 5Admin Note: MANUFACTURE BIOMEDICAL INFO SHEET GIVEN GIVEN W/O INCIDENT 6Result Comment: [id number] 7Result Comment: [01/17/2018] MARIE 8Result Comment: [05/13/2017] [facility] [id number] 9Result Comment: [01/25/2015] MARIE Medications Afinitor By Mouth, Daily, 0 Refills, Maintenance, 02/02/20 16:44:00 EDT Start Date: 02/02/20 Status: Ordered Compression Stockings See Instructions, # 2 each, Maintenance, 15-20 mm Hg knee high 1 pair duration - 99 dx- venous insufficiency, with lymphedema, 09/17/20 10:49:00 EDT, Supply Start Date: 09/17/20 Status: Ordered furosemide 20 mg oral tablet See Instructions, 1 tab daily for 3-4 days when needed for leg swelling, # 30 tablet, Refills 0, Tot. Refills 0, Maintenance, 09/17/20 10:41:00 EDT, Instructions Replace Required Details, Route to Pharmacy Electronically, [facility]/pharmacy #[id number], 164, cm,... Start Date: 09/17/20 Status: Ordered irbesartan 150 mg oral tablet 1 tablet = 150 mg, By Mouth, Daily, # 90 tablet, 3 Refills, Maintenance, 09/17/20 10:40:00 EDT, Tablet, [facility], lisinopril caused dry cough, 164, cm, 09/17/20 10:06:00 EDT, Height, 58, kg, 04/16/20 13:23:00 EST, Dry Weight Start Date: 09/17/20 Stop Date: 09/12/21 Status: Ordered LORazepam 0.5 mg oral tablet [...] 16:44:00 EDT Start Date: 02/02/20 Status: Ordered Xgeva 120 mg/1.7 mL subcutaneous solution See Instructions, 120 mg Subcutaneous Infusion Q 3 MOS, 0 Refills, Maintenance, 09/13/20 9:40:00 EDT, Partial fill upon patient request if the prescription is for a schedule II opioid drug. Start Date: 09/13/20 Status: Ordered Problem List Condition Effective Dates Status Health Status Inform ant Hypertension(Confirmed) Active Breast cancer metastasized t o liver(Confirmed) Active Vital Signs Most recent to oldest [Reference Range]: 1 Height 164 cm (09/17/20 10:06 AM) Weight 60.2 kg (09/17/20 10:06 AM) Oxygen Saturation [94-100 %] 95 % (09/17/20 10:06 AM) Pulse Rate [55-90 bpm] 95 bpm *H* (09/17/20 10:06 AM) Body Mass Index [18.5-24.99] 22.38 (09/17/20 10:06 AM) Blood Pressure [90-138/55-84 mm Hg] 108/ 66mm Hg (09/17/20 10:06 AM) Temperature [96.8-100.4 DegF] 98.5 DegF (09/17/20 10:06 AM) Mode of Delivery (Oxygen) Room air (09/17/20 10:06 AM) Blood pressure sites Arm, left (09/17/20 10:06 AM) Temperature Route Temporal (09/17/20 10:06 AM) Weight Obtained Via Standing scale (09/17/20 10:06 AM) Social History Social History Type Response Smoking Status Never smoker entered on: 06/10/15 Sex
--- OUTSIDE RECORDS SUMMARY | 2022-07-31 11:59 | XMS_ITS | Continuity of Care Document ---
Author Name Unknown Organization [facility] Address [address] [place] [address]- Care Team Providers Care Tile Setter Supervisor Name Role Phone Eleonora SHIPLEY, Marah Adhikari Primary Care Physician [facility] Date[facility]s): 07/22/21 - 08/21/21 [facility] [address] [place] [address]- Allergies, Adverse Reactions, Alerts No Known Allergies Immunizations Given and Recorded Vaccine Date Status Refusal Reason SARS-CoV-2 mRNA (mqrqhjl-ltyb-juctb) vax 1 07/17/21 Recorded influenza virus vaccine, inactivated 01/06/21 Tobin rded influenza virus vaccine, inactivated 01/10/20 Tobin rded influenza virus vaccine, inactivated 2 02/07/19 Gi jenifer influenza virus vaccine, inactivated 3 01/15/18 Re corded influenza virus vaccine, inactivated 01/16/17 Tobin rded influenza virus vaccine, inactivated 01/10/15 Tboin rded influenza virus vaccine, inactivated 02/28/14 Tobin [...] Zoster Vaccine Live 03/20/09 Given 1Result Comment: [facility] 2Result Comment: [facility]:[id number] 3Result Comment: [01/17/2018] MARIE 4Admin Note: MANUFACTURE BIOMEDICAL INFO SHEET GIVEN GIVEN W/O INCIDENT 5Result Comment: Done at [facility] 6Result Comment: Done at [facility] 7Result Comment: Done at [facility] 8Result Comment: [id number] 9Result Comment: [01/17/2018] [facility]ZAS 10Result Comment: [05/13/2017] [facility] [id number] 11Result Comment: [01/25/2015] MARIE Medications Afinitor By [...] Gm, 1 Refills, Maintenance, 07/15/21 10:34:00 EDT, [place], [facility]/pharmacy #[id number], Partial fill upon patient request if the prescription is for a schedule II opioid drug., 1 sprays Nares, Both 2 times a day,x30 d... Start Date: 07/15/21 Stop Date: 09/13/21 Status: Ordered hydrochlorothiazide 12.5 mg oral tablet 1 tablet = 12.5 mg, By Mouth, Daily, # 90 tablet, 3 Refills, Maintenance, 07/22/21 11:22:00 EDT, Tablet, [facility]/pharmacy #[id number], 164, cm, 07/15/21 9:32:00 EDT, Height, 58, [...]
--- OUTSIDE RECORDS SUMMARY | 2022-07-31 11:59 | XMS_ITS | Continuity of Care Document ---
Author Name Unknown Organization [facility] Address [address] [place] [address]- Care Team Providers Care Brick Siding Applicator Name Role Phone Eleonora SHIPLEY, Marah Adhikari Primary Care Physician [facility] 05[facility]11/20 - 06/10/20 [facility] [address] [place], [place] [address] Allergies, Adverse Reactions, Alerts Substance Reaction [...] Zoster Vaccine Live 03/20/09 Given 1Result Comment: [id number] 2Result Comment: [facility]:[id number] 3Result Comment: [01/17/2018] MARIE 4Admin Note: MANUFACTURE BIOMEDICAL INFO SHEET GIVEN GIVEN W/O INCIDENT 5Result Comment: [01/17/2018] MARIE 6Result Comment: [05/13/2017] [facility] [id number] 7Result Comment: [01/25/2015] MARIE Medications Afinitor By Mouth, Daily, 0 Refills, Maintenance, 02/02/20 16:44:00 EDT Start Date: 02/02/20 Status: Ordered irbesartan 75 mg oral tablet [...]
--- OUTSIDE RECORDS SUMMARY | 2022-07-31 11:59 | XMS_ITS | Continuity of Care Document ---
Author Name Unknown Organization [facility] Address [address] [place] [address]- Care Team Providers Care Neurosurgeon Name Role Phone Marah Crews MD Primary Care Physician [phone] [facility] 06[facility]20 - 06/17/20 [facility] [address] [place] [address] Attending Physician: Maya Rhoades MD Admitting Physician: Maya Rhoades MD Referring Physician: Marah Crews MD Allergies, Adverse Reactions, [...] Zoster Vaccine Live 03/20/09 Given 1Result Comment: [id number] 2Result Comment: [facility]:[id number] 3Result Comment: [01/17/2018] MARIE 4Admin Note: MANUFACTURE BIOMEDICAL INFO SHEET GIVEN GIVEN W/O INCIDENT 5Result Comment: [01/17/2018] MARIE 6Result Comment: [05/13/2017] [facility] [id number] 7Result Comment: [01/25/2015] [facility] Medications Afinitor By Mouth, Daily, 0 Refills, Maintenance, 02/02/20 16:44:00 EDT Start Date: 02/02/20 Status: Ordered furosemide 20 mg oral tablet 1, tablet, By Mouth, Daily, # 30 tablet, Refills 0, Tot. Refills 0, Maintenance, 06/11/20 11:31:00 EST, Route to Pharmacy Electronically, [facility], 164, cm, 06/10/20 9:33:00 EST, Height, 58, [...] oldest [Reference Range]: 1 Height 164 cm (06/10/20 9:33 AM) Weight 65.0 kg (06/10/20 9:33 AM) Oxygen Saturation [94-100 %] 98 % (06/10/20 9:33 AM) Pulse Rate [55-90 bpm] 99 bpm *H* (06/10/20 9:33 AM) Body Mass Index [18.5-24.99] 24.17 (06/10/20 9:33 AM) Social History Social History Type Response Smoking Status Never smoker entered on: 06/10/15 Sex
--- OUTSIDE RECORDS SUMMARY | 2022-07-31 11:59 | XMS_ITS | Continuity of Care Document ---
Author Name Unknown Organization [facility] Address [address] [place] [address]- Care Team Providers Care Medical Affairs Leader Name Role Phone Eleonora SHIPLEY, Marah Adhikari Primary Care Physician [facility] [facility] Date(s): 08/26/21 - 09/02/21 [facility] [address] [place] [address]- Encounter Diagnosis Hypertension(Discharge Diagnosis) - 08/26/21 Leg swelling(Discharge Diagnosis) - 08/26/21 Subconjunctival hemorrhage(Discharge Diagnosis) - 08/26/21 Attending Physician: Marah Crews MD Allergies, Adverse Reactions, Alerts No Known Allergies Immunizations Given and Recorded Vaccine Date Status Refusal Reason SARS-CoV-2 mRNA ([id number]) vax 1 07/17/21 Recorded influenza virus vaccine, [...] Zoster Vaccine Live 03/20/09 Given 1Result Comment: [facility] 2Result Comment: [facility]:[id number] 3Result Comment: [01/17/2018] MARIE 4Admin Note: MANUFACTURE BIOMEDICAL INFO SHEET GIVEN GIVEN W/O INCIDENT 5Result Comment: Done at [facility] 6Result Comment: Done at [facility] 7Result Comment: Done at [facility] 8Result Comment: [id number] 9Result Comment: [01/17/2018] MARIE 10Result Comment: [05/13/2017] [facility] [id number] 11Result Comment: [01/25/2015] MARIE Medications Afinitor By [...] Gm, 1 Refills, Maintenance, 07/15/21 10:34:00 EDT, [place], [facility]/pharmacy #[id number], Partial fill upon patient request if the prescription is for a schedule II opioid drug., 1 sprays Nares, Both 2 times a day,x30 d... Start Date: 07/15/21 Stop Date: 09/13/21 Status: Ordered hydrochlorothiazide 12.5 mg oral tablet 1 tablet = 12.5 mg, By Mouth, Daily, # 90 tablet, 3 Refills, Maintenance, 07/22/21 11:22:00 EDT, Tablet, [facility]/pharmacy #[id number], 164, cm, 07/15/21 9:32:00 EDT, Height, 58, [...] Diagnosis Diagnosis Type Effective Dates Health Status Clinical Service Informant Hypertension Discharge Diagnosis 08/26/21 Leg swelling Discharge Diagnosis 08/26/21 Subconjunctival hemorrhage Discharge Diagnosis 08/26/21 Social History Social History Type Response Smoking Status Never smoker entered on: 06/10/15 Sex
--- OUTSIDE RECORDS SUMMARY | 2022-07-31 11:59 | XMS_ITS | Continuity of Care Document ---
Author Name Unknown Organization [facility] Address [address] [place] [address]- Care Team Providers Care Neurosurgery Spine Physician Name Role Phone Marah Crews MD Primary Care Physician Encounter [facility] Date(s): 09/13/20 - 09/20/20 [facility] [address] [place] [address]- Attending Physician: Chandan Wilkes MD Admitting Physician: Chandan Wilkes MD Referring Physician: Marah Crews MD Allergies, [...] Live 03/20/09 Given 1Result Comment: Done at [facility] 2Result Comment: Done at [facility] 3Result Comment: [facility]:[id number] 4Result Comment: [01/17/2018] MARIE 5Admin Note: MANUFACTURE BIOMEDICAL INFO SHEET GIVEN GIVEN W/O INCIDENT 6Result Comment: [id number] 7Result Comment: [01/17/2018] MARIE 8Result Comment: [05/13/2017] [facility] [id number] 9Result Comment: [01/25/2015] MARIE Medications Afinitor By [...] Replace Required Details, Route to Pharmacy Electronically, [facility]/pharmacy #[id number], 164, cm,... Start Date: 09/17/20 Status: Ordered [...] oldest [Reference Range]: 1 Height 164 cm (09/13/20 9:39 AM) Oxygen Saturation [94-100 %] 97 % (09/13/20 9:39 AM) Pulse Rate [55-90 bpm] 77 bpm (09/13/20 9:39 AM) Blood Pressure [90-138/55-84 mm Hg] 140/ 70mm Hg *H* (09/13/20 9:39 AM) Mode of Delivery (Oxygen) Room air (09/13/20 9:39 AM) Blood pressure sites Arm, right (09/13/20 9:39 AM) Social History Social History Type Response Smoking Status Never smoker entered on: 06/10/15 Sex
--- OUTSIDE RECORDS SUMMARY | 2022-07-31 11:59 | XMS_ITS | Continuity of Care Document ---
Author Name Unknown Organization [facility] Address [address] [place] [address]- Care Team Providers Care Milieu Coordinator Name Role Phone Marah Crews MD Primary Care Physician [phone] Encounter [facility] Date(s): 06/26/19 - 07/03/19 [facility] [address] [place] [address]- [facility] Attending Physician: Maya Rhoades MD Admitting Physician: Maya Rohades MD Referring Physician: Marah Crews MD Allergies, [...] Zoster Vaccine Live 03/20/09 Given 1Result Comment: [id number] 2Result Comment: [facility]:[id number] 3Result Comment: [01/17/2018] MARIE 4Admin Note: MANUFACTURE BIOMEDICAL INFO SHEET GIVEN GIVEN W/O INCIDENT 5Result Comment: [01/17/2018] MARIE 6Result Comment: [05/13/2017] [facility] [id number] 7Result Comment: [01/25/2015] [facility] Medications calcium gluconate 500 mg oral tablet [...] oldest [Reference Range]: 1 Height 164 cm (06/26/19 1:56 PM) Weight 65.77 kg (06/26/19 1:56 PM) Pulse Rate [55-90 bpm] 68 bpm (06/26/19 1:56 PM) Body Mass Index [18.5-24.99] 24.45 (06/26/19 1:56 PM) Blood Pressure [90-138/55-84 mm Hg] 118/ 70mm Hg (06/26/19 1:56 PM) Blood pressure sites Arm, left (06/26/19 1:56 PM) Weight Obtained Via Patient/family state d (06/26/19 1:56 PM) Social History Social History Type Response Smoking Status Never smoker entered on: 06/10/15 Sex
--- OUTSIDE RECORDS SUMMARY | 2022-07-31 11:59 | XMS_ITS | Continuity of Care Document ---
Author Name Unknown Organization [facility] Address [address] [place] [address]- Care Team Providers Care Upper Shaper Name Role Phone Eleonora SHIPLEY, Marah Adhikari Primary Care Physician [phone] Encounter [facility] Date(s): 08/21/20 - 09/20/[address] [address]- Attending Physician: Sho Atkins Admitting Physician: Sho [...] Live 03/20/09 Given 1Result Comment: Done at [facility] 2Result Comment: Done at [facility] 3Result Comment: [facility]:[id number] 4Result Comment: [01/17/2018] MARIE 5Admin Note: MANUFACTURE BIOMEDICAL INFO SHEET GIVEN GIVEN W/O INCIDENT 6Result Comment: [id number] 7Result Comment: [01/17/2018] MARIE 8Result Comment: [05/13/2017] [facility] [phone] 9Result Comment: [01/25/2015] MARIE Medications Afinitor By [...] Replace Required Details, Route to Pharmacy Electronically, [facility]/pharmacy #[id number], 164, cm,... Start Date: 09/17/20 Status: Ordered [...]
--- OUTSIDE RECORDS SUMMARY | 2022-07-31 11:59 | XMS_ITS | Continuity of Care Document ---
Author Name Unknown Organization [facility] Address [address] [place] [address]- Care Team Providers Care Social Services Specialist Name Role Phone Eleonora SHIPLEY, Marah Adhikari Primary Care Physician Encounter [facility] Date(s): 10/01/20 - 10/31/20 [facility] [address] [place] [address]- Attending Physician: Sho Atkins Admitting Physician: Sho [...] Live 03/20/09 Given 1Result Comment: Done at [facility] 2Result Comment: Done at [facility] 3Result Comment: [facility]:[id number] 4Result Comment: [01/17/2018] MARIE 5Admin Note: MANUFACTURE BIOMEDICAL INFO SHEET GIVEN GIVEN W/O INCIDENT 6Result Comment: [id number] 7Result Comment: [01/17/2018] MARIE 8Result Comment: [05/13/2017] [facility] [id number] 9Result Comment: [01/25/2015] MARIE Medications Afinitor By [...] Details, Route to Pharmacy Electronically, [facility]/pharmacy #[id number], 164, cm,... Start Date: 09/17/20 Status: Ordered irbesartan 150 mg oral tablet 1 tablet = 150 mg, By Mouth, Daily, # 90 tablet, 3 Refills, Maintenance, 09/17/20 10:40:00 EDT, Tablet, MEDS BY MAIL [facility] lisinopril caused dry cough, 164, cm, 09/17/20 [...]
--- OUTSIDE RECORDS SUMMARY | 2022-07-31 11:59 | XMS_ITS | Continuity of Care Document ---
Author Name Unknown Organization [facility] Address [address] [place] [address]- Care Team Providers Care Sanitation Truck Driver Name Role Phone Eleonora SHIPLEY, Marah Adhikari Primary Care Physician [phone] [facility]counter [facility] Date(s): 03/25/20 - 04/01/20 [facility] [address] [place], [place] [address] Encounter Diagnosis Hypertension(Discharge Diagnosis) - 03/26/20 Attending Physician: Marah Crews MD Allergies, Adverse [...] Zoster Vaccine Live 03/20/09 Given 1Result Comment: [id number] 2Result Comment: [facility]:[id number] 3Result Comment: [01/17/2018] MARIE 4Admin Note: MANUFACTURE BIOMEDICAL INFO SHEET GIVEN GIVEN W/O INCIDENT 5Result Comment: [01/17/2018] MARIE 6Result Comment: [05/13/2017] [facility][note 3] [id number] 7Result Comment: [01/25/2015] MARIE Medications Afinitor By [...] 1 Refills, Maintenance, 03/15/20 16:31:00 EST, Capsule, [facility]/pharmacy #[id number], Partial fill upon patient request if the prescription... Start Date: 03/15/20 Status: Ordered irbesartan 150 mg oral tablet 1 tablet = 150 mg, By Mouth, Daily, # 30 tablet, 0 Refills, Maintenance, 03/25/20 16:16:00 EST, Tablet, [facility]/pharmacy #[id number], lisinopril caused dry cough, 164, cm, 02/26/20 13:09:00 EST, Height, 65.9, kg, 08/24/19 9:03:00 EDT, Dry Weight Start Date: 03/25/20 Status: Ordered LORazepam 0.5 mg oral tablet [...] 02/02/20 17:19:00 EDT, [id number], 164, cm, 02/02/20 16:26:00 EDT, Height, 65.9, [...] Dates Health Status Cl inical Service Informant Hypertension Discharge Diagnosis 03/26/20 Social History Social History Type Response Smoking Status Never smoker entered on: 06/10/15 Sex
--- OUTSIDE RECORDS SUMMARY | 2022-07-31 11:59 | XMS_ITS | Continuity of Care Document ---
Author Name Unknown Organization [facility] Address [address] [place] [address]- Care Team Providers Care Relationship Manager Name Role Phone Marah Crews MD Primary Care Physician [phone] Encounter [facility] Date(s): 05/03/20 - 06/08/20 [facility] [address] [place] [address] Attending Physician: Jose Daniel Parker MD Admitting Physician: Jose Daniel Parker MD Referring Physician: Marah Crews MD Allergies, [...] Zoster Vaccine Live 03/20/09 Given 1Result Comment: [id number] 2Result Comment: [facility]:[id number] 3Result Comment: [01/17/2018] MARIE 4Admin Note: MANUFACTURE BIOMEDICAL INFO SHEET GIVEN GIVEN W/O INCIDENT 5Result Comment: [01/17/2018] MARIE 6Result Comment: [05/13/2017] [facility] [phone] 7Result Comment: [01/25/2015] [facility] Medications Afinitor By Mouth, Daily, 0 Refills, Maintenance, 02/02/20 16:44:00 EDT Start Date: 02/02/20 Status: Ordered dicyclomine 10 mg oral capsule See Instructions, 1 capsule By Mouth 2 times a day before breakfast and supper as needed for abdominal cramps, # 30 each, 1 Refills, Maintenance, 03/15/20 16:31:00 EST, Capsule, [facility]/pharmacy #[id number], Partial fill upon patient request if the prescription... Start Date: 03/15/20 Status: Ordered furosemide 20 mg oral tablet 20 mg, 1, tablet, By Mouth, Daily, check with me before authorizing refills, # 30 tablet, Refills 0, Tot. Refills 0, Maintenance, 05/13/20 14:13:00 EST, Route to Pharmacy Electronically, [facility]/pharmacy#[id number], 164, cm, 05/02/20 9:46:00 EST, Height, 58, k... Start Date: 05/13/20 Stop Date: 06/12/20 Status: Ordered irbesartan 150 mg oral tablet 1 tablet = 150 mg, By Mouth, Daily, # 90 tablet, 1 Refills, Maintenance, 04/11/20 11:58:00 EST, Tablet, [facility]IL [facility], lisinopril caused dry cough, 164, cm, 02/26/20 13:09:00 EST, Height, 65.9, kg, 08/24/19 9:03:00 EDT, Dry Weight Start Date: 04/11/20 Stop Date: 10/08/20 Status: Ordered LORazepam 0.5 mg oral tablet [...]
--- OUTSIDE RECORDS SUMMARY | 2022-07-31 11:59 | XMS_ITS | Continuity of Care Document ---
Author Name Unknown Organization [facility] Address [address] [place] [address]- Care Team Providers Care Park Maintenance Technician Name Role Phone Eleonora SHIPLEY, Marah Adhikari Primary Care Physician [phone] [facility]counter [facility] Date(s): 11/10/21 - 12/10/21 [facility] [address] [place] [address]- Allergies, Adverse Reactions, Alerts No Known Allergies Immunizations Given and Recorded Vaccine Date Status Refusal Reason SARS-CoV-2 mRNA (wnpbevj-mpqf-jewvp) vax 1 07/17/21 Recorded influenza virus vaccine, [...] Zoster Vaccine Live 03/20/09 Given 1Result Comment: [facility] 2Result Comment: [facility]:[id number] 3Result Comment: [01/17/2018] MARIE 4Admin Note: MANUFACTURE BIOMEDICAL INFO SHEET GIVEN GIVEN W/O INCIDENT 5Result Comment: Done at [facility] 6Result Comment: Done at [facility] 7Result Comment: Done at [facility] 8Result Comment: [id number] 9Result Comment: [01/17/2018] [facility] 10Result Comment: [05/13/2017] [facility] [phone] 11Result Comment: [01/25/2015] MARIE Medications Afinitor By [...] Gm, 1 Refills, Maintenance, 07/15/21 10:34:00 EDT, [place], [facility]/pharmacy #[id number], Partial fill upon patient request if the prescription is for a schedule II opioid drug., 1 sprays Nares, Both 2 times a day,x30 d... Start Date: 07/15/21 Stop Date: 09/13/21 Status: Ordered hydrochlorothiazide 12.5 mg oral tablet 1 tablet = 12.5 mg, By Mouth, Daily, # 90 tablet, 3 Refills, Maintenance, 07/22/21 11:22:00 EDT, Tablet, [facility]/pharmacy #[id number], 164, cm, 07/15/21 9:32:00 EDT, Height, 58, kg, 04/16/20 13:23:00 EST, DryWeight Start Date: 07/22/21 Stop Date: 07/17/22 Status: Ordered irbesartan 150 mg oral tablet 1 tablet = 150 mg, By Mouth, Daily, # 90 tablet, 1 Refills, Maintenance, 10/28/21 9:08:00 EDT, Tablet, MEDS BY MAIL , lisinopril caused dry cough, 164, cm, 09/17/21 [...] Status Never smoker entered on: 06/10/15 Sex Care Team Personnel Name: Marah Crews MD Address: [address] [place] [address] Adult [place] [address]-
--- OUTSIDE RECORDS SUMMARY | 2022-07-31 11:59 | XMS_ITS | Continuity of Care Document ---
Author Name Unknown Organization [facility] Address [address] [place] [address]- Care Team Providers Care Setter Helper Name Role Phone Eleonora SHIPLEY, Marah Adhikari Primary Care Physician [facility]counter [facility] Date(s): 12/19/20 - 01/18/21 [facility] [address] [place] [address]- Allergies, Adverse Reactions, Alerts Substance Reaction Severity Status NKA Active Immunizations Given and Recorded Vaccine Date Status Refusal Reason SARS-CoV-2 (COVID-19) mRNA BNT-162b2 vac 1 12/31/20 Recorded SARS-CoV-2 (COVID-19) mRNA BNT-162b2 vac 2 06/05/20 Recorded SARS-CoV-2 (COVID-19) mRNA BNT-162b2 vac 3 05/15/20 Recorded influenza virus vaccine, inactivated 01/10/20 Tobin rded influenza virus vaccine, inactivated 4 02/07/19 Gi jenifer influenza virus vaccine, inactivated 5 01/15/18 Re corded influenza virus vaccine, inactivated 01/16/17 Tobin rded influenza virus vaccine, inactivated 01/10/15 Tobin rded influenza virus vaccine, inactivated 02/28/14 Tobin rded influenza virus vaccine, inactivated 01/05/11 Tobin rded influenza virus vaccine, inactivated 6 01/16/10 Gi jenifer tetanus-diphtheria toxoids (Td) 7 05/19/19 Given pneumococcal 23-valent vaccine 8 01/15/18 Recorded pneumococcal 13-valent vaccine 9 05/13/17 Given pneumococcal 13-valent vaccine 10 01/16/15 Recorde d tetanus/diphtheria/pertussis, acel(Tdap) 04/05/09 Recorded Zoster Vaccine Live 03/20/09 Given 1Result Comment: Done at [facility] 2Result Comment: [facility] 3Result Comment: Done at [facility] 4Result Comment: [facility]:[id number] 5Result Comment: [01/17/2018] MARIE 6Admin Note: MANUFACTURE BIOMEDICAL INFO SHEET GIVEN GIVEN W/O INCIDENT 7Result Comment: [id number] 8Result Comment: [01/17/2018] MARIE 9Result Comment: [05/13/2017] [facility] [phone] 10Result Comment: [01/25/2015] MARIE Medications Afinitor By Mouth, Daily, 0 Refills, Maintenance, 02/02/20 16:44:00 EDT Start Date: 02/02/20 Status: Ordered Compression Stockings See Instructions, # 2 each, Maintenance, 15-20 mm Hg knee high 1 pair duration - 99 dx- venous insufficiency, with lymphedema, 09/17/20 10:49:00 EDT, Supply Start Date: 09/17/20 Status: Ordered irbesartan 150 [...]
--- OUTSIDE RECORDS SUMMARY | 2022-07-31 11:59 | XMS_ITS | Continuity of Care Document ---
Author Name Unknown Organization [facility] Address [address] [place] [address]- Care Team Providers Care Factory Machine Computer Operator Name Role Phone Marah Crews MD Primary Care Physician [phone] Encounter [facility] Date(s): 08/28/20 - 10/03/20 [facility] [address] [place] [address]- Attending Physician: Jose Daniel Parker MD Admitting [...] Live 03/20/09 Given 1Result Comment: Done at [facility] 2Result Comment: Done at [facility] 3Result Comment: [facility]:[id number] 4Result Comment: [01/17/2018] MARIE 5Admin Note: MANUFACTURE BIOMEDICAL INFO SHEET GIVEN GIVEN W/O INCIDENT 6Result Comment: [id number] 7Result Comment: [01/17/2018] MARIE 8Result Comment: [05/13/2017] [facility] [id number] 9Result Comment: [01/25/2015] MARIE Medications Afinitor By [...] Replace Required Details, Route to Pharmacy Electronically, [facility]/pharmacy #[id number], 164, cm,... Start Date: 09/17/20 Status: Ordered [...]
--- OUTSIDE RECORDS SUMMARY | 2022-07-31 11:59 | XMS_ITS | Continuity of Care Document ---
Author Name Unknown Organization [facility] Address [address] [place] [address]- Care Team Providers Care Public Speaking Coach Name Role Phone Marah Crews MD Primary Care Physician [phone] [facility] Date(s): 05/14/20 - 06/26/20 [facility] [address] [place] [address] Attending Physician: Maya Rhoades MD Admitting Physician: [...] Zoster Vaccine Live 03/20/09 Given 1Result Comment: [id number] 2Result Comment: [facility]:[id number] 3Result Comment: [01/17/2018] MARIE 4Admin Note: MANUFACTURE BIOMEDICAL INFO SHEET GIVEN GIVEN W/O INCIDENT 5Result Comment: [01/17/2018] MARIE 6Result Comment: [05/13/2017] [facility] [id number] 7Result Comment: [01/25/2015] [facility] Medications Afinitor By Mouth, Daily, 0 Refills, Maintenance, 02/02/20 16:44:00 EDT Start Date: 02/02/20 Status: Ordered furosemide 20 mg oral tablet 1, tablet, By Mouth, Daily, # 30 tablet, Refills 0, Tot. Refills 0, Maintenance, 06/11/20 11:31:00 EST, Route to Pharmacy Electronically, [id number], 164, cm, 06/10/20 9:33:00 EST, Height, 58, [...]
--- OUTSIDE RECORDS SUMMARY | 2022-07-31 11:59 | XMS_ITS | Continuity of Care Document ---
Author Name Unknown Organization [facility] Address [address] [place] [address]- Care Team Providers Care Broadband Technician Name Role Phone Eleonora SHIPLEY, Marah Adhikari Primary Care Physician [phone] Encounter [facility] Date(s): 05/19/19 - 05/29/19 [facility] [address] [place] [address]- [facility] Attending Physician: Sho Atkins Admitting Physician: Sho Atkins Referring Physician: AdmSho barnett Allergies, Adverse Reactions, Alerts Substance Reaction Severity [...] Zoster Vaccine Live 03/20/09 Given 1Result Comment: [id number] 2Result Comment: [facility]:[phone] 3Result Comment: [01/17/2018] MARIE 4Admin Note: MANUFACTURE BIOMEDICAL INFO SHEET GIVEN GIVEN W/O INCIDENT 5Result Comment: [01/17/2018] MARIE 6Result Comment: [05/13/2017] [facility] [id number] 7Result Comment: [01/25/2015] [facility] Medications calcium gluconate [...]
--- OUTSIDE RECORDS SUMMARY | 2022-07-31 11:59 | XMS_ITS | Continuity of Care Document ---
Author Name Unknown Organization [facility] Address [address] [place] [address]- Care Team Providers Care Twisting Department End Finder Name Role Phone Marah Crews MD Primary Care Physician [phone] [place] [facility] [place] 06/23/22 - 06/30/22 [facility] [address] [place], [place] [address] Attending Physician: Marah Crews MD Allergies, Adverse Reactions, Alerts No Known Allergies Immunizations Given and Recorded Vaccine Date Status Refusal Reason influenza virus vaccine, inactivated 12/18/21 Tobin rded influenza virus vaccine, inactivated 01/06/21 Tobin [...] inactivated 3 01/16/10 Gi jenifer SARS-CoV-2 mRNA ([id number]) vax 4 07/17/21 Recorded SARS-CoV-2 (COVID-19) mRNA [...] Zoster Vaccine Live 03/20/09 Given 1Result Comment: [facility]:[id number] 2Result Comment: [01/17/2018] MARIE 3Admin Note: MANUFACTURE BIOMEDICAL INFO SHEET GIVEN GIVEN W/O INCIDENT [facility] 5Result Comment: Done at [facility] 6Result Comment: Done at [facility] 7Result Comment: Done at [facility] 8Result Comment: [id number] 9Result Comment: [01/17/2018] MARIE 10Result Comment: [05/13/2017] [facility] [id number] 11Result Comment: [01/25/2015] MARIE Medications Afinitor By [...] Nares, Both, 2 times a day, # 3 each, 0 Refills, Maintenance, 06/23/22 10:53:00 EDT, [place], [facility] [place], Partial fill upon patient request if the prescription is for a schedule II opioid drug., 1 sprays Nares, Both 2 times a day,x90... Start Date: 06/23/22 Stop Date: 09/21/22 Status: Ordered irbesartan 150 mg oral tablet 1 tablet = 150 mg, By Mouth, Daily, # 90 tablet, 3 Refills, Maintenance, 06/23/22 10:50:00 EDT, Tablet, [facility] [place], lisinopril caused dry cough, 164, cm, 06/23/22 10:15:00 EDT, Height, 61, kg, 09/17/21 10:47:00 EDT, Dry Weight Start Date: 06/23/22 Stop Date: 06/18/23 Status: Ordered irbesartan 75 mg oral tablet 1 tablet = 75 mg, By Mouth, Daily at supper, in addition to 150 mg in AM --> total 225 mg daily,# 90 tablet, 3 Refills, Maintenance, 06/23/22 10:50:00 EDT, Tablet, [facility] MA[facility] , Partial fill upon patient request if the prescription is for a... Start Date: 06/23/22 Stop Date: 06/18/23 Status: Ordered Magnesium Gluconate = 400 mg, [...] Breast cancer metastasized to liver Confirmed Active Vital Signs Most recent to oldest [Reference Range]: 1 Height 164 cm (06/23/22 10:15 AM) Weight 60.2 kg (06/23/22 10:15 AM) Oxygen Saturation [94-100 %] 96 % (06/23/22 10:15 AM) Pulse Rate [55-90 bpm] 80 bpm (06/23/22 10:15 AM) Body Mass Index [18.5-24.99 kg/m2] 22.38 kg/m2 (06/23/22 10:15 AM) Blood Pressure [90-138/55-84 mm Hg] 136/ 86mm Hg (06/23/22 10:15 AM) Mode of Delivery (Oxygen) Room air (06/23/22 10:15 AM) Blood pressure sites Arm, right (06/23/22 10:15 AM) Weight Obtained Via Standing scale (06/23/22 10:15 AM) Social History Social History Type Response Smoking Status Never smoker entered on: 06/10/15 Sex Note * Ernestine Benjamin: PERFORM, SIGN, VERIFY Event Display: Patient Education/Instruction Authored Date: [id number] [facility] Clinical Summary Name MIRIAM GONZALEZ Age 71 Years 1950 PCP Eleonora SHIPLEY, Marah Adhikari PCP Visit Date 06/23/2022 09:52:00 Patient Instructions use flonase spray twice daily for 2 weeks, if congestion improves, you can reduce to once daily fornext 2 weeks check with if pre-operative medical clearance is needed. rheumatology - referral ( [facility]), Additional Instructions: Scheduled Appointments?? Future Appointments ?No Future Appointments Scheduled Follow-Up Instructions ?? Diagnosis Medications: Please continue your medications until treatment is completed or stopped by your provider. Discuss any questions related to medications with your provider. Medications to Continue Taking That Have Changed MEDS BY MAIL [address], [place] [phone], [phone] - Fluticasone Nasal (Flonase 50 mcg/inh nasal spray) 1 spray(s) Nares, Both twice a day for 90 Days. Refills: 0. Next Dose: - Irbesartan (irbesartan 150 mg oral tablet) 1 tab(s) Oral Daily for 90 Days. Refills: 3. Next Dose: - Irbesartan (irbesartan 75 mg oral tablet) 1 tab(s) Oral Daily at supper for 90 Days. in addition to 150 mg in AM --> total 225 mg daily. Refills: 3. Next Dose: Medications to Continue with No Changes These medications were not printed or sent to your pharmacy Ascorbic Acid (Vitamin C) Oral Daily. Next Dose: Calcium And Vitamin D Combination (calcium-vitamin D 250 mg-200 intl units oral tablet) 1 tab(s) Oral twice a day. Next Dose: Cyanocobalamin (Vitamin B12) Next Dose: denosumab (Xgeva 120 mg/1.7 mL subcutaneous solution) 120 mg Subcutaneous Infusion Q 3 MOS. Next Dose: everolimus (Afinitor) Oral Daily. Next Dose: Magnesium Gluconate 400 Milligram Oral twice a day. Next Dose: Tamoxifen (tamoxifen 20 mg oral tablet) 1 tab(s) Oral Daily. Next Dose: Zinc Sulfate (Zinc) 140 Milligram Oral Daily. Next Dose: Allergy Info:?? NKA Medications Given This Visit Future Orders ?No future orders Vital Signs Height 164 cm Weight 60.2 kg BMI 22.38 kg/m2 Blood Pressure 136 mm Hg/86 mm Hg Temperature Pulse Rate 80 bpm Respiratory Rate 02 Sat Mode of Delivery 96 %/Room air You can now view a summary of your hospital visit from the comfort of your home through a free online portal called [employer]. [employer] is a website that allows you to securely view your medical information including discharge summary, medications and follow-up visits. ??You can alsosend a secure electronic message to your doctor???s office to request appointments, renew medications or just ask a question. You can enroll at [email or web address] or register during your next office visit. Disclaimer:?? The information provided is of a general nature and is intended to be used in conjunction with the recommendations and advice of your health care practitioner. ??Every effort has been made to ensure that the information provided is accurate and complete at the time it is provided to you however, as your needs change, or, as new ??information becomes available, different or additional instructions may be required. If you have questions, please consult with your primary care provider or pharmacist, as appropriate. ??This information is not intended to serve as substitution for assessment and evaluation by a qualified health care provider. If you do not have a primary care provider, you may find a [facility] provider by calling [facility] at [phone]. For information about the plan of care including goals and instructions for your diagnosis, please see the patient education orders section of this document. Patient Education Materials?? The content of this educational material or handout may have been modified, supplemented, or adapted from its original content and format to support your individualized medical care. Patient Care team information Care Team Personnel Name: Marah Crews MD Position: [facility] Primary Care Physician Member Role: PCP Address: Address: [facility] [place] [address]- Name: Maya Rhoades MD Position: [facility] Physician (General Medicine) Member Role: [employer] Consulting Physician Address: Address: [address] [place] [address] [place] [address]- [place] Care Team Related Persons Name: JOANNA GONZALEZ Address: [place] [address] Name: MORALES GONZALEZ Address: home [address] [place] [address]
--- OUTSIDE RECORDS SUMMARY | 2022-07-31 11:59 | XMS_ITS | Continuity of Care Document ---
Author Name Unknown Organization [facility] Address [address] [place] [address]- Care Team Providers Care Auto Self Service Station Attendant Name Role Phone Eleonora SHIPLEY, Marah Adhikari Primary Care Physician Encounter [facility] Date(s): 09/13/20 - 10/13/20 [facility] [address] [place] [address]- Attending Physician: Sho Atkins Admitting Physician: Sho [...] tetanus/diphtheria/pertussis, acel(Tdap) 04/05/09 Recorded Zoster Vaccine Live 12/16/09 Given 1Result Comment: Done at [facility] 2Result Comment: Done at [facility] 3Result Comment: [facility]:[id number] 4Result Comment: [01/17/2018] MARIE 5Admin Note: MANUFACTURE BIOMEDICAL INFO SHEET GIVEN GIVEN W/O INCIDENT 6Result Comment: [id number] 7Result Comment: [01/17/2018] MARIE 8Result Comment: [05/13/2017] [facility] [place][note 2] [id number] 9Result Comment: [01/25/2015] MARIE Medications Afinitor By [...] Replace Required Details, Route to Pharmacy Electronically, [facility]/pharmacy #[id number], 164, cm,... Start Date: 09/17/20 Status: Ordered [...]
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
--- OUTSIDE RECORDS SUMMARY | 2022-07-31 11:59 | XMS_ITS | Continuity of Care Document ---
Author Name Unknown Organization [facility] Address [address] [place] [address]- Care Team Providers Care Vegetable Farm Worker Name Role Phone Marah Crews MD Primary Care Physician [place] [facility] Date(s): 07/15/21 - 07/22/21 [facility] [address] [place], [place] [address] Attending Physician: Marah Crews MD Allergies, Adverse Reactions, Alerts No Known Allergies Immunizations Given and Recorded Vaccine Date Status Refusal Reason SARS-CoV-2 mRNA (sgjgzzv-wasf-kkmqh) vax 1 07/17/21 Recorded influenza virus vaccine, [...] Zoster Vaccine Live 03/20/09 Given 1Result Comment: [facility] 2Result Comment: [facility]:[id number] 3Result Comment: [01/17/2018] MARIE 4Admin Note: MANUFACTURE BIOMEDICAL INFO SHEET GIVEN GIVEN W/O INCIDENT 5Result Comment: Done at [facility] 6Result Comment: Done at [facility] 7Result Comment: Done at [facility] 8Result Comment: [id number] 9Result Comment: [01/17/2018] MARIEGRZAS 10Result Comment: [05/13/2017] [facility] [id number] 11Result Comment: [01/25/2015] MARIE Medications Afinitor By [...] Gm, 1 Refills, Maintenance, 07/15/21 10:34:00 EDT, [place], [facility]/pharmacy #[id number], Partial fill upon patient request if the prescription is for a schedule II opioid drug., 1 sprays Nares, Both 2 times a day,x30 d... Start Date: 07/15/21 Stop Date: 09/13/21 Status: Ordered hydrochlorothiazide 12.5 mg oral tablet 1 tablet = 12.5 mg, By Mouth, Daily, # 90 tablet, 3 Refills, Maintenance, 07/22/21 11:22:00 EDT, Tablet, [facility]/pharmacy #[id number], 164, cm, 07/15/21 9:32:00 EDT, Height, 58, [...] oldest [Reference Range]: 1 Height 164 cm (07/15/21 9:32 AM) Weight 62 kg (07/15/21 9:32 AM) Oxygen Saturation [94-100 %] 98 % (07/15/21 9:32 AM) Pulse Rate [55-90 bpm] 91 bpm *H* (07/15/21 9:32 AM) Body Mass Index [18.5-24.99] 23.05 (07/15/21 9:32 AM) Blood Pressure [90-138/55-84 mm Hg] 130/ 74mm Hg (07/15/21 9:32 AM) Blood pressure sites Arm, left (07/15/21 9:32 AM) Weight Obtained Via Standing scale (07/15/21 9:32 AM) Social History Social History Type Response Smoking Status Never smoker entered on: 06/10/15 Sex
--- OUTSIDE RECORDS SUMMARY | 2022-07-31 11:59 | XMS_ITS | Continuity of Care Document ---
Author Name Unknown Organization [facility] Address [address] [place] [address]- Care Team Providers Care Apartment Maintenance Supervisor Name Role Phone Marah Crews MD Primary Care Physician Encounter [facility] Date(s): 03/19/21 - 03/26/21 [facility] [address] [place] [address] Attending Physician: Mariah Reyez NP Admitting Physician: Mariah Reyez NP Referring Physician: Marah Crews MD Allergies, Adverse Reactions, Alerts Substance Reaction Severity Status NKA Active Immunizations Given and Recorded Vaccine Date Status Refusal Reason influenza virus vaccine, inactivated 01/06/21 Tobin rded [...] vaccine, inactivated 3 01/16/10 Gi jenifer SARS-CoV-2 (COVID-19) mRNA BNT-162b2 vac 4 12/31/20 Recorded SARS-CoV-2 (COVID-19) mRNA BNT-162b2 vac 5 06/05/20 Recorded SARS-CoV-2 (COVID-19) mRNA BNT-162b2 vac 6 05/15/20 Recorded tetanus-diphtheria toxoids (Td) 7 05/19/19 Given pneumococcal 23-valent vaccine 8 01/15/18 Recorded pneumococcal 13-valent vaccine 9 05/13/17 Given pneumococcal 13-valent vaccine 10 01/16/15 Recorde d tetanus/diphtheria/pertussis, acel(Tdap) 04/05/09 Recorded Zoster Vaccine Live 03/20/09 Given 1Result Comment: [facility]:[id number] 2Result Comment: [01/17/2018] MARIE 3Admin Note: MANUFACTURE BIOMEDICAL INFO SHEET GIVEN GIVEN W/O INCIDENT 4Result Comment: Done at [facility] 5Result Comment: Done at [facility] 6Result Comment: Done at [facility] 7Result Comment: [id number] 8Result Comment: [01/17/2018] MARIE 9Result Comment: [05/13/2017] [facility] [id number] 10Result Comment: [01/25/2015] MARIE Medications Afinitor By Mouth, Daily, 0 Refills, Maintenance, 02/02/20 16:44:00 EDT Start Date: 02/02/20 Status: Ordered Compression Stockings See Instructions, # 2 each, Maintenance, 15-20 mm Hg knee high 1 pair duration - 99 dx- venous insufficiency, with lymphedema, 09/17/20 10:49:00 EDT, Supply Start Date: 09/17/20 Status: Ordered hydrochlorothiazide 12.5 mg oral tablet 1 tablet = 12.5 mg, By Mouth, Daily, # 90 tablet, 1 Refills, Maintenance, 02/26/21 10:40:00 EST, Tablet, [facility]/pharmacy #[id number], Partial fill upon patient request if the prescription is for a schedule II opioid drug., 164, cm, 02/26/21 10:14:00 EST, [place]... Start Date: 02/26/21 Stop Date: 08/25/21 Status: Ordered irbesartan 150 mg oral tablet [...]
--- OUTSIDE RECORDS SUMMARY | 2022-07-31 11:59 | XMS_ITS | Continuity of Care Document ---
Author Name Unknown Organization [facility] Address [address] [place] [address]- Care Team Providers Care Dental Laboratory Assistant Name Role Phone Marah Crews MD Primary Care Physician [place] [facility] [place](s): 10/16/21 - 04/02/22 [facility] [address] [place], [place] [address] Attending Physician: Marah Crews MD Allergies, Adverse [...] influenza virus vaccine, inactivated 3 01/16/10 Gi jeinfer SARS-CoV-2 mRNA (gpugxrx-vspy-tabbw) vax 4 07/17/21 Recorded SARS-CoV-2 (COVID-19) mRNA [...] Vaccine Live 03/20/09 Given 1Result Comment: [facility]:[id number] 2Result Comment: [01/17/2018] MARIE 3Admin Note: MANUFACTURE BIOMEDICAL INFO SHEET GIVEN GIVEN W/O INCIDENT 4Result Comment: [facility] 5Result Comment: Done at [facility] 6Result Comment: Done at [facility] 7Result Comment: Done at [facility] 8Result Comment: [id number] 9Result Comment: [01/17/2018] MARIE 10Result Comment: [05/13/2017] [facility] [id number] 11Result Comment: [01/25/2015] MARIE Medications Afinitor By [...] Gm, 1 Refills, Maintenance, 07/15/21 10:34:00 EDT, [place], [facility]/pharmacy #[id number], Partial fill upon patient request if the prescription is for a schedule II opioid drug., 1 sprays Nares, Both 2 times a day,x30 d... Start Date: 07/15/21 Stop Date: 09/13/21 Status: Ordered hydrochlorothiazide 12.5 mg oral tablet 1 tablet = 12.5 mg, By Mouth, Daily, # 90 tablet, 3 Refills, Maintenance, 07/22/21 11:22:00 EDT, Tablet, [facility]/pharmacy #[id number], 164, cm, 07/15/21 9:32:00 EDT, Height, 58, [...] Response Smoking Status Never smoker entered on: 3/7/16 Sex Patient Care team information Care Team Personnel Name: Marah Crews MD Position: [facility] Primary Care Physician Member Role: PCP Address: Address: [address] [place] [address] Adult [place] [address]- Name: [place] SHIPLEY, Njogu Position: [facility] Physician (General Medicine) Member Role: Lifetime Consulting Physician Address: Address: [address] [place] [address] Radiology and [address] Care Team Related Persons Name: JOANNA GONZALEZ Address: [place] [address] Name: MORALES GONZALEZ Address: [address] [place] [address]
--- OUTSIDE RECORDS SUMMARY | 2022-07-31 11:59 | XMS_ITS | Continuity of Care Document ---
Author Name Unknown Organization [facility] Address [address] [place] [address]- Care Team Providers Care Scale Reclamation Tender Name Role Phone Eleonora SHIPLEY, Marah Adhikari Primary Care Physician [phone] [facility] [place](s[place] 08/21/20 - 08/28/[address] [address]- Attending Physician: Miracle SHIPLEY, Wendy Cummins Admitting Physician: Miracle SHIPLEY, Wendy Cummins Referring Physician: Marah Crews MD Allergies, Adverse [...] Live 03/20/09 Given 1Result Comment: Done at [facility] 2Result Comment: Done at [facility] 3Result Comment: [id number] 4Result Comment: [facility]:[id number] 5Result Comment: [01/17/2018] MARIE 6Admin Note: MANUFACTURE BIOMEDICAL INFO SHEET GIVEN GIVEN W/O INCIDENT 7Result Comment: [01/17/2018] MARIE 8Result Comment: [05/13/2017] [facility] [id number] 9Result Comment: [01/25/2015] MARIE Medications Afinitor By Mouth, Daily, 0 Refills, Maintenance, 02/02/20 16:44:00 EDT Start Date: 02/02/20 Status: Ordered furosemide 20 mg oral tablet 1, tablet, By Mouth, Daily, # 30 tablet, Refills 0, Tot. Refills 0, Maintenance, 06/11/20 11:31:00 EST, Route to Pharmacy Electronically, [id number], 164, cm, 06/10/20 9:33:00 EST, Height, 58, [...] oldest [Reference Range]: 1 Height 164 cm (08/21/20 10:39 AM) Weight 62.3 kg (08/21/20 10:39 AM) Social History Social History Type Response Smoking Status Never smoker entered on: 06/10/15 Sex
--- OUTSIDE RECORDS SUMMARY | 2022-07-31 11:59 | XMS_ITS | Continuity of Care Document ---
Author Name Unknown Organization [facility] Address [address] [place] [address]- Care Team Providers Care Forklift Driver Name Role Phone Eleonora SHIPLEY, Marah Adhikari Primary Care Physician [phone] Encounter [facility] Date(s): 01/27/21 - 02/03/21 [facility] [address] [place] [address]- Attending Physician: Marah Crews MD Allergies, Adverse Reactions, Alerts Substance Reaction Severity Status NKA Active Immunizations Given and Recorded Vaccine Date Status Refusal Reason influenza virus vaccine, inactivated 01/06/21 Tobin rded influenza virus vaccine, inactivated 01/10/20 Tobin rded influenza virus vaccine, inactivated 1 02/07/19 Gi jenifer influenza virus vaccine, inactivated 2 01/15/18 Re corded influenza virus vaccine, inactivated 01/16/17 Otbin rded influenza virus vaccine, inactivated 01/10/15 Tobin [...] Zoster Vaccine Live 03/20/09 Given 1Result Comment: [facility]:[id number] 2Result Comment: [01/17/2018] MARIE 3Admin Note: MANUFACTURE BIOMEDICAL INFO SHEET GIVEN GIVEN W/O INCIDENT 4Result Comment: Done at [facility] 5Result Comment: Done at [facility] 6Result Comment: Done at [facility] 7Result Comment: [id number] 8Result Comment: [01/17/2018] MARIE 9Result Comment: [05/13/2017] [facility] [id number] 10Result Comment: [01/25/2015] MARIE Medications Afinitor By [...] = 12.5 mg, By Mouth, Daily, # 30 tablet, 0 Refills, Maintenance, 01/27/21 14:46:00 EDT, Tablet, [facility]/pharmacy #[id number], Partial fill upon patient request if the prescription is for a schedule II opioid drug., 164, cm, 01/27/21 14:20:00 EDT, [place]... Start Date: 01/27/21 Status: Ordered irbesartan 150 mg oral tablet [...] [Reference Range]: 1 2 Height 164 cm (01/27/21 2:20 PM) 164 cm (01/27/21 2:14 PM) Weight 59.4 kg (01/27/21 2:14 PM) Oxygen Saturation [94-100 %] 96 % (01/27/21 2:14 PM) Pulse Rate [55-90 bpm] 91 bpm *H* (01/27/21 2:14 PM) Body Mass Index [18.5-24.99] 22.09 (01/27/21 2:14 PM) Blood Pressure [90-138/55-84 mm Hg] 150/ 80mm Hg *H* (01/27/21 2:20 PM) 150/80mm Hg *H* (01/27/21 2:14 PM) Temperature [96.8-100.4 DegF] 97.9 DegF (01/27/21 2:14 PM) Mode of Delivery (Oxygen) Room air (01/27/21 2:14 PM) Blood pressure sites Arm, right (01/27/21 2:20 PM) Arm, left (01/27/21 2:14 PM) Temperature Route Temporal (01/27/21 2:14 PM) Weight Obtained Via Standing scale (01/27/21 2:14 PM) Social History Social History Type Response Smoking Status Never smoker entered on: 06/10/15 Sex
--- OUTSIDE RECORDS SUMMARY | 2022-07-31 11:59 | XMS_ITS | Continuity of Care Document ---
Author Name Unknown Organization [facility] Address [address] [place] [address]- Care Team Providers Care Driver Manager Name Role Phone Eleonora SHIPLEY, Marah Adhikari Primary Care Physician Encounter [facility] Date(s): 02/26/21 - 03/05/21 [facility] [address] [place], [place] [address] Attending Physician: Marah Crews [...] Live 03/20/09 Given 1Result Comment: [facility]:[id number] 2Result Comment: [01/17/2018] MARIE 3Admin Note: MANUFACTURE BIOMEDICAL INFO SHEET GIVEN GIVEN W/O INCIDENT 4Result Comment: Done at [facility] 5Result Comment: Done at [facility] 6Result Comment: Done at [facility] 7Result Comment: [id number] 8Result Comment: [01/17/2018] MARIE 9Result Comment: [05/13/2017] [facility] [id number] 10Result Comment: [01/25/2015] MARIE Medications Afinitor By [...] 1 Refills, Maintenance, 02/26/21 10:40:00 EST, Tablet, [facility]/pharmacy #[id number], Partial fill upon patient request if the [...] oldest [Reference Range]: 1 Height 164 cm (02/26/21 10:14 AM) Weight 59.8 kg (02/26/21 10:14 AM) Oxygen Saturation [94-100 %] 96 % (02/26/21 10:14 AM) Pulse Rate [55-90 bpm] 95 bpm *H* (02/26/21 10:14 AM) Body Mass Index [18.5-24.99] 22.23 (02/26/21 10:14 AM) Blood Pressure [90-138/55-84 mm Hg] 128/ 76mm Hg (02/26/21 10:14 AM) Temperature [96.8-100.4 DegF] 97.4 DegF (02/26/21 10:14 AM) Mode of Delivery (Oxygen) Room air (02/26/21 10:14 AM) Blood pressure sites Arm, left (02/26/21 10:14 AM) Temperature Route Temporal (02/26/21 10:14 AM) Weight Obtained Via Standing scale (02/26/21 10:14 AM) Social History Social History Type Response Smoking Status Never smoker entered on: 06/10/15 Sex
--- OUTSIDE RECORDS SUMMARY | 2022-07-31 11:59 | XMS_ITS | Continuity of Care Document ---
Author Name Unknown Organization [facility] Address [address] [place] [address]- Care Team Providers Care Small Arms Artillery Repairer Name Role Phone Marah Crews MD Primary Care Physician [facility]counter [facility] Date(s): 05/10/20 - 06/15/[facility] [address] [place] [address]- Attending Physician: Jose Daniel Parker MD Admitting [...] Zoster Vaccine Live 03/20/09 Given 1Result Comment: [id number] 2Result Comment: [facility][NOTE 2]:[id number] 3Result Comment: [01/17/2018] MARIE 4Admin Note: MANUFACTURE BIOMEDICAL INFO SHEET GIVEN GIVEN W/O INCIDENT 5Result Comment: [01/17/2018] MARIE 6Result Comment: [05/13/2017] [facility] [id number] 7Result Comment: [01/25/2015] [facility] Medications Afinitor By Mouth, Daily, 0 Refills, Maintenance, 02/02/20 16:44:00 EDT Start Date: 02/02/20 Status: Ordered furosemide 20 mg oral tablet 1, tablet, By Mouth, Daily, # 30 tablet, Refills 0, Tot. Refills 0, Maintenance, 06/11/20 11:31:00 EST, Route to Pharmacy Electronically, [place] [id number], 164, cm, 06/10/20 9:33:00 EST, Height, 58, [...]
--- OUTSIDE RECORDS SUMMARY | 2022-07-31 11:59 | XMS_ITS | Continuity of Care Document ---
Author Name Unknown Organization [facility] Address [address] [place] [address]- Care Team Providers Care Golf Superintendent Name Role Phone Eleonora SHIPLEY, Marah Adhikari Primary Care Physician [facility] Date(s): 08/26/21 - 09/25/21 [facility] [address] [place] [address]- Attending Physician: Sho Atkins Admitting Physician: AdmSho barnett Referring Physician: AdmtrSho Allergies, Adverse Reactions, Alerts No Known Allergies Immunizations Given and Recorded Vaccine Date Status Refusal Reason SARS-CoV-2 mRNA (wgolfyo-vhga-ptoew) vax 1 07/17/21 Recorded influenza virus vaccine, [...] Zoster Vaccine Live 03/20/09 Given 1Result Comment: [facility] 2Result Comment: [facility]:[id number] 3Result Comment: [01/17/2018] MARIE 4Admin Note: MANUFACTURE BIOMEDICAL INFO SHEET GIVEN GIVEN W/O INCIDENT 5Result Comment: Done at [facility] 6Result Comment: Done at [facility] 7Result Comment: Done at [facility] 8Result Comment: [id number] 9Result Comment: [01/17/2018] MARIE 10Result Comment: [05/13/2017] [facility] [phone] 11Result Comment: [01/25/2015] MARIE Medications Afinitor By [...] Gm, 1 Refills, Maintenance, 07/15/21 10:34:00 EDT, [place], [facility]/pharmacy #[id number], Partial fill upon patient request if the prescription is for a schedule II opioid drug., 1 sprays Nares, Both 2 times a day,x30 d... Start Date: 07/15/21 Stop Date: 09/13/21 Status: Ordered hydrochlorothiazide 12.5 mg oral tablet 1 tablet = 12.5 mg, By Mouth, Daily, # 90 tablet, 3 Refills, Maintenance, 07/22/21 11:22:00 EDT, Tablet, [facility][id number], 164, cm, 07/15/21 9:32:00 EDT, Height, 58, [...]
--- OUTSIDE RECORDS SUMMARY | 2022-07-31 12:00 | XMS_ITS | Continuity of Care Document ---
Author Name Unknown Organization [facility] ter Address [address] [place] [address]- Care Team Providers Care Internet Sales Associate Name Role Phone Marah Crews MD Primary Care Physician Encounter [facility] Date(s): 07/02/20 - 08/07/[address] [address]- Attending Physician: Harley Doty MD Admitting Physician: Harley Doty MD Referring Physician: Harley Doty MD Allergies, Adverse Reactions, Alerts Substance Reaction [...] Live 03/20/09 Given 1Result Comment: Done at [facility] 2Result Comment: Done at [facility] 3Result Comment: [id number] 4Result Comment: [facility]:[id number] 5Result Comment: [01/17/2018] MARIE 6Admin Note: MANUFACTURE BIOMEDICAL INFO SHEET GIVEN GIVEN W/O INCIDENT 7Result Comment: [01/17/2018] MARIE 8Result Comment: [05/13/2017] [facility] [id number] 9Result Comment: [01/25/2015] MARIE Medications Afinitor By Mouth, Daily, 0 Refills, Maintenance, 02/02/20 16:44:00 EDT Start Date: 02/02/20 Status: Ordered furosemide 20 mg oral tablet 1, tablet, By Mouth, Daily, # 30 tablet, Refills 0, Tot. Refills 0, Maintenance, 06/11/20 11:31:00 EST, Route to Pharmacy Electronically, [facility], 164, cm, 06/10/20 9:33:00 EST, Height, 58, [...]
--- OUTSIDE RECORDS SUMMARY | 2022-07-31 12:00 | XMS_ITS | Continuity of Care Document ---
Author Name Unknown Organization [facility] Address [address] [place] [address]- Care Team Providers Care Personal Care Aide Name Role Phone Eleonora SHIPLEY, Marah Adhikari Primary Care Physician Encounter [facility] Date(s): 06/26/19 - 07/06/19 [facility] [address] [place] [address]- [facility] Attending Physician: Sho Atkins Admitting Physician: Sho [...] Zoster Vaccine Live 03/20/09 Given 1Result Comment: [id number] 2Result Comment: [facility]:[id number] 3Result Comment: [01/17/2018] MARIE 4Admin Note: MANUFACTURE BIOMEDICAL INFO SHEET GIVEN GIVEN W/O INCIDENT 5Result Comment: [01/17/2018] MARIE 6Result Comment: [05/13/2017] [facility] [id number] 7Result Comment: [01/25/2015] [facility] Medications calcium gluconate [...]
--- OUTSIDE RECORDS SUMMARY | 2022-07-31 12:00 | XMS_ITS | Continuity of Care Document ---
Author Name Unknown Organization [facility] Address [address] [place] [address]- Care Team Providers Care Hard Rock Miner Blasting Name Role Phone Marah Crews MD Primary Care Physician [facility]counter [facility] Date(s): 01/28/21 - 02/27/21 [facility] [address] [place], [place] [address] Allergies, Adverse Reactions, Alerts Substance Reaction [...] Zoster Vaccine Live 03/20/09 Given 1Result Comment: [facility]:[id number] 2Result Comment: [01/17/2018] MARIE 3Admin Note: MANUFACTURE BIOMEDICAL INFO SHEET GIVEN GIVEN W/O INCIDENT 4Result Comment: Done at [facility] 5Result Comment: Done at [facility] 6Result Comment: Done at [facility] 7Result Comment: [id number] 8Result Comment: [01/17/2018] AMRIE 9Result Comment: [05/13/2017] [facility] [phone] 10Result Comment: [01/25/2015] MARIE Medications Afinitor By [...] 1 Refills, Maintenance, 02/26/21 10:40:00 EST, Tablet, [facility]/pharmacy #[id number], Partial fill upon patient request if the [...]
--- OUTSIDE RECORDS SUMMARY | 2022-07-31 12:00 | XMS_ITS | Continuity of Care Document ---
Author Name Unknown Organization [facility] Address [address] [place] [address]- Care Team Providers Care Command And Control Name Role Phone Eleonora SHIPLEY, Marah Adhikari Primary Care Physician [phone] Encounter [facility] Date(s): 05/19/19 - 05/26/19 [facility] [address] [place] [address]- [facility] Attending Physician: Marah Crews MD Allergies, Adverse [...] Zoster Vaccine Live 03/20/09 Given 1Result Comment: [id number] 2Result Comment: [facility]:[id number] 3Result Comment: [01/17/2018] MARIE 4Admin Note: MANUFACTURE BIOMEDICAL INFO SHEET GIVEN GIVEN W/O INCIDENT 5Result Comment: [01/17/2018] MARIE 6Result Comment: [05/13/2017] [facility] [phone] 7Result Comment: [01/25/2015] MARIE Medications calcium gluconate 500 [...] oldest [Reference Range]: 1 Height 164 cm (05/19/19 2:26 PM) Weight 64.8 kg (05/19/19 2:26 PM) Oxygen Saturation [94-100 %] 98 % (2/14/20 2:26 PM) Pulse Rate [55-90 bpm] 91 bpm *H* (05/19/19 2:26 PM) Body Mass Index [18.5-24.99] 24.09 (05/19/19 2:26 PM) Blood Pressure [90-138/55-84 mm Hg] 100/ 60mm Hg (05/19/19 2:26 PM) Mode of Delivery (Oxygen) Room air (05/19/19 2:26 PM) Blood pressure sites Arm, left (05/19/19 2:26 PM) Social History Social History Type Response Smoking Status Never smoker entered on: 06/10/15 Sex
--- OUTSIDE RECORDS SUMMARY | 2022-07-31 12:00 | XMS_ITS | Continuity of Care Document ---
Author Name Unknown Organization [facility] Address [address] [place] [address]- Care Team Providers Care Marketing Strategy Analyst Name Role Phone Eleonora SHIPLEY, Marah Adhikari Primary Care Physician [facility] Date(s): 05/13/20 - 06/12/20 [facility] [address] [place], [place] [address] Allergies, Adverse Reactions, Alerts Substance Reaction [...] Zoster Vaccine Live 03/20/09 Given 1Result Comment: [id number] 2Result Comment: [facility]:[id number] 3Result Comment: [01/17/2018] MARIE 4Admin Note: MANUFACTURE BIOMEDICAL INFO SHEET GIVEN GIVEN W/O INCIDENT 5Result Comment: [01/17/2018] MARIE 6Result Comment: [05/13/2017] [facility] [phone] 7Result Comment: [01/25/2015] MARIE Medications Afinitor By Mouth, Daily, 0 Refills, Maintenance, 02/02/20 16:44:00 EDT Start Date: 02/02/20 Status: Ordered furosemide 20 mg oral tablet 1, tablet, By Mouth, Daily, # 30 tablet, Refills 0, Tot. Refills 0, Maintenance, 06/11/20 11:31:00 EST, Route to Pharmacy Electronically, [facility], 164, cm, 06/10/20 9:33:00 EST, Height, 58, [...]
--- OUTSIDE RECORDS SUMMARY | 2022-07-31 12:00 | XMS_ITS | Continuity of Care Document ---
Author Name Unknown Organization [facility] Address [address] [place] [address]- Care Team Providers Care Feltmaker And Weigher Name Role Phone Marah Crews MD Primary Care Physician Encounter [facility] Date(s): 03/13/19 - 03/20/19 [facility] [address] [place] [address]- [facility] Attending Physician: Maya Rhoades MD Admitting Physician: [place]ona SHIPLEY, Maya Referring Physician: Marah Crews MD Allergies, Adverse [...] 03/20/09 Given 1Result Comment: [facility]:[phone] 2Result Comment: [01/17/2018] MARIE 3Admin Note: MANUFACTURE BIOMEDICAL INFO SHEET GIVEN GIVEN W/O INCIDENT 4Result Comment: [01/17/2018] MARIE 5Result Comment: [05/13/2017] [facility] [id number] 6Result Comment: [01/25/2015] MARIE Medications calcium gluconate [...] oldest [Reference Range]: 1 Height 164 cm (03/13/19 5:04 PM) Weight 61.24 kg (03/13/19 5:04 PM) Body Mass Index [18.5-24.99] 22.77 (03/13/19 5:04 PM) Blood Pressure [90-138/55-84 mm Hg] 120/ 64mm Hg (03/13/19 5:04 PM) Blood pressure sites Arm, left (03/13/19 5:04 PM) Weight Obtained Via Patient/family state d (03/13/19 5:04 PM) Social History Social History Type Response Smoking Status Never smoker entered on: 06/10/15 Sex
--- OUTSIDE RECORDS SUMMARY | 2022-07-31 12:00 | XMS_ITS | Continuity of Care Document ---
Author Name Unknown Organization [facility] ter Address [address] [place] [address]- Care Team Providers Care Parking Meter Installer Name Role Phone Marah Crews MD Primary Care Physician Encounter [facility] Date(s): 06/11/20 - 08/16/[address] [address]- Attending Physician: Harley Doty MD Admitting Physician: [...] Live 03/20/09 Given 1Result Comment: Done at [facility] 2Result Comment: Done at [facility] 3Result Comment: [id number] 4Result Comment: [facility]:[id number] 5Result Comment: [01/17/2018] MARIE 6Admin Note: MANUFACTURE BIOMEDICAL INFO SHEET GIVEN GIVEN W/O INCIDENT 7Result Comment: [01/17/2018] MARIE 8Result Comment: [05/13/2017] [facility] [phone] 9Result Comment: [01/25/2015] MARIE Medications Afinitor By Mouth, Daily, 0 Refills, Maintenance, 02/02/20 16:44:00 EDT Start Date: 02/02/20 Status: Ordered furosemide 20 mg oral tablet 1, tablet, By Mouth, Daily, # 30 tablet, Refills 0, Tot. Refills 0, Maintenance, 06/11/20 11:31:00 EST, Route to Pharmacy Electronically, [facility], 164, cm, 06/10/20 9:33:00 EST, Height, 58, [...]
--- OUTSIDE RECORDS SUMMARY | 2022-07-31 12:00 | XMS_ITS | Continuity of Care Document ---
Author Name Unknown Organization [facility] Address [address] [place] [address]- Care Team Providers Care Feltmaker Name Role Phone Eleonora SHIPLEY, Marah Adhikari Primary Care Physician Encounter [facility] Date(s): 02/19/20 - 04/27/20 [facility] [address] [place], [place] [address] Attending Physician: Marah Crews MD Allergies, [...] Zoster Vaccine Live 03/20/09 Given 1Result Comment: [id number] 2Result Comment: [facility]:[id number] 3Result Comment: [01/17/2018] MARIE 4Admin Note: MANUFACTURE BIOMEDICAL INFO SHEET GIVEN GIVEN W/O INCIDENT 5Result Comment: [01/17/2018] MARIE 6Result Comment: [05/13/2017] [facility] [id number] 7Result Comment: [01/25/2015] MARIE Medications Afinitor By Mouth, Daily, 0 Refills, Maintenance, 02/02/20 16:44:00 EDT Start Date: 02/02/20 Status: Ordered dicyclomine 10 mg oral capsule See Instructions, 1 capsule By Mouth 2 times a day before breakfast and supper as needed for abdominal cramps, # 30 each, 1 Refills, Maintenance, 03/15/20 16:31:00 EST, Capsule, [facility]/pharmacy #[id number], Partial fill upon patient request if the prescription... Start Date: 03/15/20 Status: Ordered furosemide 20 mg oral tablet 20 mg, 1, tablet, By Mouth, Daily, # 3 tablet, Refills 0, Tot. Refills 0, Maintenance, 04/26/20 16:17:00 EST, Route to Pharmacy Electronically, [facility]/pharmacy #[id number], 164, cm, 04/16/20 15:47:00 EST, Height, 58, kg, 04/16/20 13:23:00 EST, Dry Weight Start Date: 04/26/20 Status: Ordered irbesartan 150 mg oral tablet [...]
--- OUTSIDE RECORDS SUMMARY | 2022-07-31 12:00 | XMS_ITS | Continuity of Care Document ---
Author Name Unknown Organization [facility] Address [address] [place] [address]- Care Team Providers Care Rv Servicer Name Role Phone Eleonora SHIPLEY, Marah Adhikari Primary Care Physician Encounter [facility] Date(s): 04/29/22 - 05/06/22 [facility] [address] [place] [address] Attending Physician: Mariah Reyez NP Admitting Physician: Mariah Reyez NP Allergies, Adverse Reactions, Alerts No Known Allergies [...] inactivated 3 01/16/10 Gi jenifer SARS-CoV-2 mRNA (emjoryr-uvdf-szmrc) vax 4 07/17/21 Recorded SARS-CoV-2 (COVID-19) mRNA [...] Zoster Vaccine Live 03/20/09 Given 1Result Comment: [facility]:[id number] 2Result Comment: [01/17/2018] MARIE 3Admin Note: MANUFACTURE BIOMEDICAL INFO SHEET GIVEN GIVEN W/O INCIDENT 4Result Comment: [facility] 5Result Comment: Done at [facility] 6Result Comment: Done at [facility] 7Result Comment: Done at [facility] 8Result Comment: [id number] 9Result Comment: [01/17/2018] MARIE 10Result Comment: [05/13/2017] [facility] [phone] 11Result Comment: [01/25/2015] MARIE Medications Afinitor By [...] Gm, 1 Refills, Maintenance, 07/15/21 10:34:00 EDT, [place], [facility]/pharmacy #[id number], Partial fill upon patient request if the [...] List Condition Confirmation Course Effective Dates Status [facility] Informant Hypertension Confirmed Active Breast cancer metastasized to liver Confirmed Active Vital Signs Most recent to oldest [Reference Range]: 1 Height 164 cm (04/29/22 10:21 AM) Weight 60 kg (04/29/22 10:21 AM) Oxygen Saturation [94-100 %] 95 % (04/29/22 10:21 AM) Pulse Rate [55-90 bpm] 80 bpm (04/29/22 10:21 AM) Body Mass Index [18.5-24.99 kg/m2] 22.31 kg/m2 (04/29/22 10:21 AM) Blood Pressure [90-138/55-84 mm Hg] 138/ 78mm Hg (04/29/22 10:21 AM) Mode of Delivery (Oxygen) Room air (04/29/22 10:21 AM) Blood pressure sites Arm, right (04/29/22 10:21 AM) Weight Obtained Via Patient/family state d (04/29/22 10:21 AM) Social History Social History Type Response Smoking Status Never smoker entered on: 06/10/15 Sex Note * Mary Abbasi: PERFORM, SIGN, VERIFY Event Display: Patient Education/Instruction Authored Date: [id number] [facility] *BVS [address] Clinical Summary Name MIRIAM GONZALEZ Age 71 Years 1950 PCP Marah Crews MD PCP Visit Date 04/29/2022 10:11:00 Additional Instructions: Scheduled Appointments?? Future Appointments ?*No??[facility] ?[address]??[place],??[place],??[address] ?Phone:??--?Fax:??-- ?Appt. Date:??06/23/2022?9:50 AM ?Scheduled Provider:??Marah Crews MD Follow-Up Instructions ?? Diagnosis Medications: Please continue your medications until treatment is completed or stopped by your provider. Discuss any questions related to medications with your provider. Medications to Continue with No Changes These [...] orders Vital Signs Height 164 cm Weight 60 kg BMI 22.31 kg/m2 Blood Pressure 138 mm Hg/78 mm Hg Temperature Pulse Rate 80 bpm Respiratory Rate 02 Sat Mode of Delivery 95 %/Room air You can now view a summary of your hospital visit from the comfort of your home through a free online portal called [employer]. [employer] is a website that allows you to securely view your medical information including discharge summary, medications and follow-up visits. ??You can alsosend a secure electronic message to your doctor???s office to request appointments, renew medications or just ask a question. You can enroll at [email or web address] or register during your next office visit. [...] primary care provider, you may find a [facility] provider by calling [facility] [employer] at [phone]. For information about the plan of care [...] Personnel Name: Eleonora SHIPLEY, Marah Adhikari Position: [facility] Primary Care Physician Member Role: PCP Address: Address: [address] [place] [address] Adult & [place] [address]- Name: Ver[place] SHIPLEY, Njogu Position: [facility] Physician (General Medicine) Member Role: Lifetime Consulting Physician Address: Address: [address] [place] [address] Radiology and Imaging [place], [place] [address] Care Team Related Persons Name: JOANNA GONZALEZ Address: [place] [address] Name: MORALES GONZALEZ Address: home [address] [place] [address]
--- OUTSIDE RECORDS SUMMARY | 2022-07-31 12:00 | XMS_ITS | Continuity of Care Document ---
Author Name Unknown Organization [facility] Address [address] [place] [address]- Care Team Providers Care Umbrella Tipper Hand Name Role Phone Eleonora SHIPLEY, Marah Adhikari Primary Care Physician [phone] [facility]20 - 05/26/20 [facility] [address] [place], [place] [address] Allergies, Adverse Reactions, Alerts Substance Reaction Severity [...] Zoster Vaccine Live 03/20/09 Given 1Result Comment: [id number] 2Result Comment: [facility]:[id number] 3Result Comment: [01/17/2018] MARIE 4Admin Note: MANUFACTURE BIOMEDICAL INFO SHEET GIVEN GIVEN W/O INCIDENT 5Result Comment: [01/17/2018] MARIE 6Result Comment: [05/13/2017] [facility] [id number] 7Result Comment: [01/25/2015] MARIE Medications Afinitor By Mouth, Daily, 0 Refills, Maintenance, 02/02/20 16:44:00 EDT Start Date: 02/02/20 Status: Ordered dicyclomine 10 mg oral capsule See Instructions, 1 capsule By Mouth 2 times a day before breakfast and supper as needed for abdominal cramps, # 30 each, 1 Refills, Maintenance, 03/15/20 16:31:00 EST, Capsule, [facility]/pharmacy #[id number], Partial fill upon patient request if the prescription... Start Date: 03/15/20 Status: Ordered furosemide 20 mg oral tablet 20 mg, 1, tablet, By Mouth, Daily, check with me before authorizing refills, # 30 tablet, Refills 0, Tot. Refills 0, Maintenance, 05/13/20 14:13:00 EST, Route to Pharmacy Electronically, [facility]/pharmacy#[id number], 164, cm, 05/02/20 9:46:00 EST, Height, 58, [...]
--- OUTSIDE RECORDS SUMMARY | 2022-07-31 12:00 | XMS_ITS | Continuity of Care Document ---
Author Name Unknown Organization [facility] Address [address] [place] [address]- Care Team Providers Care Academic Coordinator Name Role Phone Eleonora SHIPLEY, Marah Adhikari Primary Care Physician [facility] 05/[facility]/20 - 06/04/20 [facility] [address] [place], [place] [address] Allergies, Adverse Reactions, Alerts Substance Reaction Severity [...] Zoster Vaccine Live 03/20/09 Given 1Result Comment: [id number] 2Result Comment: [facility]:[id number] 3Result Comment: [01/17/2018] MARIE 4Admin Note: MANUFACTURE BIOMEDICAL INFO SHEET GIVEN GIVEN W/O INCIDENT 5Result Comment: [01/17/2018] MARIE 6Result Comment: [05/13/2017] [facility] [id number] 7Result Comment: [01/25/2015] MARIE Medications Afinitor By Mouth, Daily, 0 Refills, Maintenance, 02/02/20 16:44:00 EDT Start Date: 02/02/20 Status: Ordered dicyclomine 10 mg oral capsule See Instructions, 1 capsule By Mouth 2 times a day before breakfast and supper as needed for abdominal cramps, # 30 each, 1 Refills, Maintenance, 03/15/20 16:31:00 EST, Capsule, [facility]/pharmacy #[id number], Partial fill upon patient request if the prescription... Start Date: 03/15/20 Status: Ordered furosemide 20 mg oral tablet 20 mg, 1, tablet, By Mouth, Daily, check with me before authorizing refills, # 30 tablet, Refills 0, Tot. Refills 0, Maintenance, 05/13/20 14:13:00 EST, Route to Pharmacy Electronically, [facility]/pharmacy#[id number], 164, cm, 05/02/20 9:46:00 EST, Height, 58, [...]
--- OUTSIDE RECORDS SUMMARY | 2022-07-31 12:00 | XMS_ITS | Continuity of Care Document ---
Author Name Unknown Organization [facility] Address [address] [place] [address]- Care Team Providers Care Numerical Control Nesting Operator Name Role Phone Eleonora SHIPLEY, Marah Adhikari Primary Care Physician [phone] [facility] 05/02/20 - 05/09/20 [facility] [address] [place] [address]- Encounter Diagnosis Hypertension(Discharge Diagnosis) - 05/02/20 Bilateral leg edema(Discharge Diagnosis) - 05/02/20 Open knee wound(Discharge Diagnosis) - 05/02/20 Attending Physician: Marah Crews MD Allergies, Adverse [...] Zoster Vaccine Live 03/20/09 Given 1Result Comment: [id number] 2Result Comment: [facility]:[id number] 3Result Comment: [01/17/2018] MARIE 4Admin Note: MANUFACTURE BIOMEDICAL INFO SHEET GIVEN GIVEN W/O INCIDENT 5Result Comment: [01/17/2018] MARIE 6Result Comment: [05/13/2017] [facility] [id number] 7Result Comment: [01/25/2015] MARIEGREENOnofre Medications Afinitor By Mouth, Daily, 0 Refills, Maintenance, 02/02/20 16:44:00 EDT Start Date: 02/02/20 Status: Ordered dicyclomine 10 mg oral capsule See Instructions, 1 capsule By Mouth 2 times a day before breakfast and supper as needed for abdominal cramps, # 30 each, 1 Refills, Maintenance, 03/15/20 16:31:00 EST, Capsule, [facility]/pharmacy #[id number], Partial fill upon patient request if the prescription... Start Date: 03/15/20 Status: Ordered furosemide 20 mg oral tablet 20 mg, 1, tablet, By Mouth, Daily, # 7 tablet, Refills 0, Tot. Refills 0, Maintenance, 05/02/20 10:24:00 EST, Route to Pharmacy Electronically, [facility]/pharmacy #[id number], 164, cm, 05/02/20 9:46:00 EST, Height, [...] Status Clinical Service Informant Hypertension Discharge Diagnosis 05/02/20 Bilateral leg edema Discharge Diagnosis 05/02/20 Open knee wound Discharge Diagnosis 05/02/20 Vital Signs Most recent to oldest [Reference Range]: 1 Height 164 cm (05/02/20 9:46 AM) Weight 68.2 kg (05/02/20 9:46 AM) Oxygen Saturation [94-100 %] 99 % (05/02/20 9:46 AM) Pulse Rate [55-90 bpm] 84 bpm (05/02/20 9:46 AM) Body Mass Index [18.5-24.99] 25.36 *H* (05/02/20 9:46 AM) Blood Pressure [90-138/55-84 mm Hg] 126/ 74mm Hg (05/02/20 9:46 AM) Temperature [96.8-100.4 DegF] 98.1 DegF (05/02/20 9:46 AM) Mode of Delivery (Oxygen) Room air (05/02/20 9:46 AM) Blood pressure sites Arm, left (05/02/20 9:46 AM) Temperature Route Temporal (05/02/20 9:46 AM) Weight Obtained Via Standing scale (05/02/20 9:46 AM) Social History Social History Type Response Smoking Status Never smoker entered on: 06/10/15 Sex
--- OUTSIDE RECORDS SUMMARY | 2022-07-31 12:00 | XMS_ITS | Continuity of Care Document ---
Author Name Unknown Organization [facility] Address [address] [place] [address]- Care Team Providers Care Tile Setter Apprentice Name Role Phone Eleonora SHIPLEY, Marah Adhikari Primary Care Physician [facility] Date[facility]s): 05/21/20 - 06/20/20 [facility] [address] [place], [place] [address] Allergies, Adverse Reactions, Alerts Substance [...] Zoster Vaccine Live 03/20/09 Given 1Result Comment: [id number] 2Result Comment: [facility]:[id number] 3Result Comment: [01/17/2018] MARIE 4Admin Note: MANUFACTURE BIOMEDICAL INFO SHEET GIVEN GIVEN W/O INCIDENT 5Result Comment: [01/17/2018] MARIE 6Result Comment: [05/13/2017] [facility] [id number] 7Result Comment: [01/25/2015] MARIE Medications Afinitor By Mouth, Daily, 0 Refills, Maintenance, 02/02/20 16:44:00 EDT Start Date: 02/02/20 Status: Ordered furosemide 20 mg oral tablet 1, tablet, By Mouth, Daily, # 30 tablet, Refills 0, Tot. Refills 0, Maintenance, 06/11/20 11:31:00 EST, Route to Pharmacy Electronically, [id number], 164, cm, 06/10/20 9:33:00 EST, Height, 58, [...]
--- OUTSIDE RECORDS SUMMARY | 2022-07-31 12:00 | XMS_ITS | Continuity of Care Document ---
Author Name Unknown Organization [facility] Address [address] [place] [address]- Care Team Providers Care Wall Covering Installer Name Role Phone Eleonora SHIPLEY, Marah Adhikari Primary Care Physician [place] [facility] [place]11[place]20 - 08/10/20 [facility] [address] [place] [address]- Attending Physician: Sho Atkins Admitting Physician: Sho [...] Live 03/20/09 Given 1Result Comment: Done at [facility] 2Result Comment: Done at [facility] 3Result Comment: [id number] 4Result Comment: [facility]:[id number] 5Result Comment: [01/17/2018] MARIE 6Admin Note: MANUFACTURE BIOMEDICAL INFO SHEET GIVEN GIVEN W/O INCIDENT 7Result Comment: [01/17/2018] MARIE 8Result Comment: [05/13/2017] [facility] [id number] 9Result Comment: [01/25/2015] MARIE Medications Afinitor By Mouth, Daily, 0 Refills, Maintenance, 02/02/20 16:44:00 EDT Start Date: 02/02/20 Status: Ordered furosemide 20 mg oral tablet 1, tablet, By Mouth, Daily, # 30 tablet, Refills 0, Tot. Refills 0, Maintenance, 06/11/20 11:31:00 EST, Route to Pharmacy Electronically, [id number], 164, cm, 06/10/20 9:33:00 EST, Height, 58, [...]
--- OUTSIDE RECORDS SUMMARY | 2022-07-31 12:00 | XMS_ITS | Continuity of Care Document ---
Author Name Unknown Organization [facility] Address [address] [place] [address]- Care Team Providers Care Corporate Secretary Name Role Phone Eleonora SHIPLEY, Marah Adhikari Primary Care Physician En[place] [facility] [place] Date(s): 03/03/22 - 04/02/22 [facility] [address] [place], [place] [address] Attending Physician: Sho Atkins Admitting Physician: Sho [...] inactivated 3 01/16/10 Gi jenifer SARS-CoV-2 mRNA (ofxvnnj-iqny-lfjee) vax 4 07/17/21 Recorded SARS-CoV-2 (COVID-19) mRNA [...] Zoster Vaccine Live 03/20/09 Given 1Result Comment: [facility]:[id number] 2Result Comment: [01/17/2018] MARIE 3Admin Note: MANUFACTURE BIOMEDICAL INFO SHEET GIVEN GIVEN W/O INCIDENT 4Result Comment: [facility] 5Result Comment: Done at [facility] 6Result Comment: Done at [facility] 7Result Comment: Done at [facility] 8Result Comment: [id number] 9Result Comment: [01/17/2018] MARIE 10Result Comment: [05/13/2017] [facility] [id number] 11Result Comment: [01/25/2015] MARIE Medications Afinitor By [...] Gm, 1 Refills, Maintenance, 07/15/21 10:34:00 EDT, [place], [facility]/pharmacy #[id number], Partial fill upon patient request if the prescription is for a schedule II opioid drug., 1 sprays Nares, Both 2 times a day,x30 d... Start Date: 07/15/21 Stop Date: 09/13/21 Status: Ordered hydrochlorothiazide 12.5 mg oral tablet 1 tablet = 12.5 mg, By Mouth, Daily, # 90 tablet, 3 Refills, Maintenance, 07/22/21 11:22:00 EDT, Tablet, [facility]/pharmacy #[id number], 164, cm, 07/15/21 9:32:00 EDT, Height, 58, [...] smoker entered on: 06/10/15 Sex Note * Event Display: MRI Abdomen, Non- BH Authored Date: * Event Display: Ultrasound Breast, Non-BH Authored Date: * Event Display: MM Mammogram Authored Date: * Event Display: MM Mammogram Authored Date: * Event Display: MM Mammogram Authored Date: * Event Display: MM Mammogram Authored Date: * Event Display: MRI Abdomen, Non- BH Authored Date: * Event Display: Non BH Lab Results Authored Date: * Event Display: Non BH Lab Results Authored Date: * Event Display: Non BH Lab Results Authored Date: * Event Display: NM Nuclear Medicine, Non-BH Authored Date: * Event Display: NM Nuclear Medicine, Non-BH Authored Date: * Event Display: Bone Density, Non-BH Authored Date: CT Abdomen * Event Display: CT Scan Abdomen Authored Date: MR Abdomen * Event Display: MRI Abdomen Authored Date: Patient Care team information Care Team Personnel Name: Eleonora SHIPLEY, Marah Adhikari Position: [facility] Primary Care Physician Member Role: PCP Address: Address: [address] [place] [address] Adult & [place] [address]- Name: [place] SHIPLEY, Njogu Position: [facility] Physician (General Medicine) Member Role: Lifetime Consulting Physician Address: Address: [address] [place] [address] Radiology and Imaging [place], [place] [address] Care Team Related Persons Name: JOANNA GONZALEZ Address: [place] [address] Name: MORALES GONZALEZ Address: home [address] [place] [address]
--- OUTSIDE RECORDS SUMMARY | 2022-07-31 12:00 | XMS_ITS | Continuity of Care Document ---
Author Name Unknown Organization [facility] Address [address] [place] [address]- Care Team Providers Care Mother Repairer Name Role Phone Eleonora SHIPLEY, Marah Adhikari Primary Care Physician [facility] Date[facility]s): 02/26/20 - 03/27/20 [facility] [address] [place] [address] Attending Physician: Sho Atkins Admitting Physician: Sho [...] Zoster Vaccine Live 03/20/09 Given 1Result Comment: [id number] 2Result Comment: [facility]:[id number] 3Result Comment: [01/17/2018] MARIE 4Admin Note: MANUFACTURE BIOMEDICAL INFO SHEET GIVEN GIVEN W/O INCIDENT 5Result Comment: [01/17/2018] MARIE 6Result Comment: [05/13/2017] [facility] [id number] 7Result Comment: [01/25/2015] MARIE Medications Afinitor By [...] 1 Refills, Maintenance, 03/15/20 16:31:00 EST, Capsule, [facility]/pharmacy #[id number], Partial fill upon patient request if the prescription... Start Date: 03/15/20 Status: Ordered irbesartan 150 mg oral tablet 1 tablet = 150 mg, By Mouth, Daily, # 30 tablet, 0 Refills, Maintenance, 03/25/20 16:16:00 EST, Tablet, [facility]/pharmacy #[id number], lisinopril caused dry cough, 164, cm, [...] 02/02/20 17:19:00 EDT, [id number], 164, cm, 02/02/20 16:26:00 EDT, Height, 65.9, [...]
--- OUTSIDE RECORDS SUMMARY | 2022-07-31 12:00 | XMS_ITS | Continuity of Care Document ---
Author Name Unknown Organization [facility] Address [address] [place] [address]- Care Team Providers Care Squeegee Operator Name Role Phone Marah Crews MD Primary Care Physician [place] [facility] [place](s): 11/11/21 - 12/11/21 [facility] [address] [place] [address]- Attending Physician: Sho Atkins Admitting Physician: AdmSho barnett Referring Physician: AdmtrSho Allergies, Adverse Reactions, Alerts No Known Allergies Immunizations Given and Recorded Vaccine Date Status Refusal Reason SARS-CoV-2 mRNA (uadwafw-coyx-dizjc) vax 1 07/17/21 Recorded influenza virus vaccine, [...] Zoster Vaccine Live 03/20/09 Given 1Result Comment: [facility] 2Result Comment: [facility]:[id number] 3Result Comment: [01/17/2018] MARIE 4Admin Note: MANUFACTURE BIOMEDICAL INFO SHEET GIVEN GIVEN W/O INCIDENT 5Result Comment: Done at [facility] 6Result Comment: Done at [facility] 7Result Comment: Done at [facility] 8Result Comment: [id number] 9Result Comment: [01/17/2018] MARIE 10Result Comment: [05/13/2017] [facility] [id number] 11Result Comment: [01/25/2015] MARIE Medications Afinitor By [...] Gm, 1 Refills, Maintenance, 07/15/21 10:34:00 EDT, [place], [facility]/pharmacy #[id number], Partial fill upon patient request if the prescription is for a schedule II opioid drug., 1 sprays Nares, Both 2 times a day,x30 d... Start Date: 07/15/21 Stop Date: 09/13/21 Status: Ordered hydrochlorothiazide 12.5 mg oral tablet 1 tablet = 12.5 mg, By Mouth, Daily, # 90 tablet, 3 Refills, Maintenance, 07/22/21 11:22:00 EDT, Tablet, [facility]/pharmacy #[id number], 164, cm, 07/15/21 9:32:00 EDT, Height, 58, [...] on: 06/10/15 Sex Care Team Personnel Name: Eleonora SHIPLEY, Marah Adhikari Address: [address] [place] [address] Adult & Pediatric [place], [place] [address]
--- OUTSIDE RECORDS SUMMARY | 2022-07-31 12:00 | XMS_ITS | Continuity of Care Document ---
Author Name Unknown Organization [facility] Address [address] [place] [address]- Care Team Providers Care Iron Worker Apprentice Name Role Phone Eleonora SHIPLEY, Marah Adhikari Primary Care Physician [facility] Date[facility]s): 04/29/20 - 05/06/20 [facility] [address] [place], [place] [address] Attending Physician: Marah Crews MD Allergies, Adverse [...] Zoster Vaccine Live 03/20/09 Given 1Result Comment: [id number] 2Result Comment: [facility]:[id number] 3Result Comment: [01/17/2018] MARIE 4Admin Note: MANUFACTURE BIOMEDICAL INFO SHEET GIVEN GIVEN W/O INCIDENT 5Result Comment: [01/17/2018] MARIE 6Result Comment: [05/13/2017] [facility] [id number] 7Result Comment: [01/25/2015] MARIE Medications Afinitor By Mouth, Daily, 0 Refills, Maintenance, 02/02/20 16:44:00 EDT Start Date: 02/02/20 Status: Ordered dicyclomine 10 mg oral capsule See Instructions, 1 capsule By Mouth 2 times a day before breakfast and supper as needed for abdominal cramps, # 30 each, 1 Refills, Maintenance, 03/15/20 16:31:00 EST, Capsule, [facility]/pharmacy #[id number], Partial fill upon patient request if the prescription... Start Date: 03/15/20 Status: Ordered furosemide 20 mg oral tablet 20 mg, 1, tablet, By Mouth, Daily, # 7 tablet, Refills 0, Tot. Refills 0, Maintenance, 05/02/20 10:24:00 EST, Route to Pharmacy Electronically, [facility]/pharmacy #[id number], 164, cm, 05/02/20 9:46:00 EST, Height, [...] oldest [Reference Range]: 1 Height 164 cm (04/29/20 2:03 PM) Weight 68.7 kg (04/29/20 2:03 PM) Oxygen Saturation [94-100 %] 98 % (04/29/20 2:03 PM) Pulse Rate [55-90 bpm] 91 bpm *H* (04/29/20 2:03 PM) Body Mass Index [18.5-24.99] 25.54 *H* (04/29/20 2:03 PM) Blood Pressure [90-138/55-84 mm Hg] 124/ 72mm Hg (04/29/20 2:03 PM) Temperature [96.8-100.4 DegF] 98.9 DegF (04/29/20 2:03 PM) Mode of Delivery (Oxygen) Room air (04/29/20 2:03 PM) Blood pressure sites Arm, left (04/29/20 2:03 PM) Temperature Route Temporal (04/29/20 2:03 PM) Weight Obtained Via Standing scale (04/29/20 2:03 PM) Social History Social History Type Response Smoking Status Never smoker entered on: 06/10/15 Sex
--- OUTSIDE RECORDS SUMMARY | 2022-07-31 12:00 | XMS_ITS | Continuity of Care Document ---
Author Name Unknown Organization [facility] Address [address] [place] [address]- Care Team Providers Care Rehab Nursing Tech Name Role Phone Eleonora SHIPLEY, Marah Adhikari Primary Care Physician [facility] Date[facility]s): 04/11/20 - 05/11/20 [facility] [address] [place], [place] [address] Allergies, Adverse Reactions, Alerts Substance [...] Zoster Vaccine Live 03/20/09 Given 1Result Comment: [id number] 2Result Comment: [facility]:[id number] 3Result Comment: [01/17/2018] MARIE 4Admin Note: MANUFACTURE BIOMEDICAL INFO SHEET GIVEN GIVEN W/O INCIDENT 5Result Comment: [01/17/2018] MARIE 6Result Comment: [05/13/2017] [facility] [id number] 7Result Comment: [01/25/2015] MARIE Medications Afinitor By Mouth, Daily, 0 Refills, Maintenance, 02/02/20 16:44:00 EDT Start Date: 02/02/20 Status: Ordered dicyclomine 10 mg oral capsule See Instructions, 1 capsule By Mouth 2 times a day before breakfast and supper as needed for abdominal cramps, # 30 each, 1 Refills, Maintenance, 03/15/20 16:31:00 EST, Capsule, [facility]/pharmacy #[id number], Partial fill upon patient request if the prescription... Start Date: 03/15/20 Status: Ordered furosemide 20 mg oral tablet 20 mg, 1, tablet, By Mouth, Daily, # 7 tablet, Refills 0, Tot. Refills 0, Maintenance, 05/02/20 10:24:00 EST, Route to Pharmacy Electronically, [facility]/pharmacy #[id number], 164, cm, 05/02/20 9:46:00 EST, [...]
--- OUTSIDE RECORDS SUMMARY | 2022-07-31 12:00 | XMS_ITS | Continuity of Care Document ---
Author Name Unknown Organization [facility] Address [address] [place] [address]- Care Team Providers Care Section Leader Screen Printing Name Role Phone Marah Crews MD Primary Care Physician [place] [facility] [place] 12/11/21 [facility] [address] [place] [address]- Attending Physician: Mo Ruff DO Referring Physician: Marah Crews MD Allergies, Adverse Reactions, Alerts No Known Allergies Immunizations Given and Recorded Vaccine Date Status Refusal Reason SARS-CoV-2 mRNA (hmcjuks-xuvv-xunih) vax 1 07/17/21 Recorded influenza virus vaccine, [...] Zoster Vaccine Live 03/20/09 Given 1Result Comment: [facility] 2Result Comment: [facility]:[id number] 3Result Comment: [01/17/2018] MARIE 4Admin Note: MANUFACTURE BIOMEDICAL INFO SHEET GIVEN GIVEN W/O INCIDENT 5Result Comment: Done at [facility] 6Result Comment: Done at [facility] 7Result Comment: Done at [facility] 8Result Comment: [id number] 9Result Comment: [01/17/2018] MARIE 10Result Comment: [05/13/2017] [facility] [id number] 11Result Comment: [01/25/2015] MARIE Medications Afinitor By [...] Gm, 1 Refills, Maintenance, 07/15/21 10:34:00 EDT, [place], [facility]/pharmacy #[id number], Partial fill upon patient request if the prescription is for a schedule II opioid drug., 1 sprays Nares, Both 2 times a day,x30 d... Start Date: 07/15/21 Stop Date: 09/13/21 Status: Ordered hydrochlorothiazide 12.5 mg oral tablet 1 tablet = 12.5 mg, By Mouth, Daily, # 90 tablet, 3 Refills, Maintenance, 07/22/21 11:22:00 EDT, Tablet, [facility]/pharmacy #[id number], 164, cm, 07/15/21 9:32:00 EDT, Height, 58, [...] Team Personnel Name: Marah Crews MD Address: [address] [facility] Adult & Pediatric Med [place], [place] [address]
--- OUTSIDE RECORDS SUMMARY | 2022-07-31 12:00 | XMS_ITS | Continuity of Care Document ---
Author Name Unknown Organization [facility] Address [address] [place] [address]- Care Team Providers Care Compressed Gases Tester Name Role Phone Eleonora SHIPLEY, Marah Adhikari Primary Care Physician [phone] [facility]counter [facility] Date[facility]s): 01/21/21 - 02/20/[address] [address]- Allergies, Adverse Reactions, Alerts Substance Reaction Severity [...] Zoster Vaccine Live 03/20/09 Given 1Result Comment: [facility]:[id number] 2Result Comment: [01/17/2018] MARIE 3Admin Note: MANUFACTURE BIOMEDICAL INFO SHEET GIVEN GIVEN W/O INCIDENT 4Result Comment: Done at [facility] 5Result Comment: Done at [facility] 6Result Comment: Done at [facility] 7Result Comment: [id number] 8Result Comment: [01/17/2018] MARIE 9Result Comment: [05/13/2017] [facility] [id number] 10Result Comment: [01/25/2015] MARIE Medications Afinitor By [...] 0 Refills, Maintenance, 01/27/21 14:46:00 EDT, Tablet, [facility]/pharmacy #[id number], Partial fill upon patient request if the [...]
--- OUTSIDE RECORDS SUMMARY | 2022-07-31 12:00 | XMS_ITS | Continuity of Care Document ---
Author Name Unknown Organization [facility] Address [address] [place] [address]- Care Team Providers Care Director Credit Risk Name Role Phone Eleonora SHIPLEY, Marah Adhikari Primary Care Physician [phone] Encounter [facility] Date(s): 05/30/20 - 08/10/20 [facility] [address] [place] [address]- Attending Physician: Nneka SHIPLEY, David Perry Referring Physician: Curtis RANGEL, Vicenta Perry Allergies, Adverse Reactions, Alerts Substance Reaction Severity [...] Live 03/20/09 Given 1Result Comment: Done at [facility] 2Result Comment: Done at [facility] 3Result Comment: [id number] 4Result Comment: [facility]:[id number] 5Result Comment: [01/17/2018] [facility] 6Admin Note: MANUFACTURE BIOMEDICAL INFO SHEET GIVEN GIVEN W/O INCIDENT 7Result Comment: [01/17/2018] MARIE 8Result Comment: [05/13/2017] [facility] [id number] 9Result Comment: [01/25/2015] MARIE Medications Afinitor By Mouth, Daily, 0 Refills, Maintenance, 02/02/20 16:44:00 EDT Start Date: 02/02/20 Status: Ordered furosemide 20 mg oral tablet 1, tablet, By Mouth, Daily, # 30 tablet, Refills 0, Tot. Refills 0, Maintenance, 06/11/20 11:31:00 EST, Route to Pharmacy Electronically, [id number], 164, cm, 06/10/20 9:33:00 EST, Height, 58, [...]
--- OUTSIDE RECORDS SUMMARY | 2022-07-31 12:00 | XMS_ITS | Continuity of Care Document ---
Author Name Unknown Organization [facility] Address [address] [place] [address]- Care Team Providers Care Special Day Class Teacher Name Role Phone Eleonora SHIPLEY, Marah Adhikari Primary Care Physician [phone] [facility] Date[facility]s): 05/02/20 - 06/01/20 [facility] [address] [place] [id number] Attending Physician: Sho Atkins Admitting Physician: Sho [...] Zoster Vaccine Live 03/20/09 Given 1Result Comment: [id number] 2Result Comment: [facility]:[id number] 3Result Comment: [01/17/2018] MARIE 4Admin Note: MANUFACTURE BIOMEDICAL INFO SHEET GIVEN GIVEN W/O INCIDENT 5Result Comment: [01/17/2018] MARIE 6Result Comment: [05/13/2017] [facility] [id number] 7Result Comment: [01/25/2015] [facility] Medications Afinitor By Mouth, Daily, 0 Refills, Maintenance, 02/02/20 16:44:00 EDT Start Date: 02/02/20 Status: Ordered dicyclomine 10 mg oral capsule See Instructions, 1 capsule By Mouth 2 times a day before breakfast and supper as needed for abdominal cramps, # 30 each, 1 Refills, Maintenance, 03/15/20 16:31:00 EST, Capsule, [facility]/pharmacy #[id number], Partial fill upon patient request if the prescription... Start Date: 03/15/20 Status: Ordered furosemide 20 mg oral tablet 20 mg, 1, tablet, By Mouth, Daily, check with me before authorizing refills, # 30 tablet, Refills 0, Tot. Refills 0, Maintenance, 05/13/20 14:13:00 EST, Route to Pharmacy Electronically, [facility]/pharmacy#[id number], 164, cm, 05/02/20 9:46:00 EST, Height, [...]
--- OUTSIDE RECORDS SUMMARY | 2022-07-31 12:00 | XMS_ITS | Continuity of Care Document ---
Author Name Unknown Organization [facility] Address [address] [place] [address]- Care Team Providers Care Home Care Provider Name Role Phone Eleonora SHIPLEY, Marah Adhikari Primary Care Physician [facility] Date(s): 05/21/20 - 06/20/20 [facility] [address] [place], [place] [address] Allergies, Adverse Reactions, Alerts Substance Reaction [...] Zoster Vaccine Live 03/20/09 Given 1Result Comment: [id number] 2Result Comment: [facility]:[id number] 3Result Comment: [01/17/2018] MARIE 4Admin Note: MANUFACTURE BIOMEDICAL INFO SHEET GIVEN GIVEN W/O INCIDENT 5Result Comment: [01/17/2018] MARIE 6Result Comment: [05/13/2017] [facility] [phone] 7Result Comment: [01/25/2015] MARIE Medications Afinitor By Mouth, Daily, 0 Refills, Maintenance, 02/02/20 16:44:00 EDT Start Date: 02/02/20 Status: Ordered furosemide 20 mg oral tablet 1, tablet, By Mouth, Daily, # 30 tablet, Refills 0, Tot. Refills 0, Maintenance, 06/11/20 11:31:00 EST, Route to Pharmacy Electronically, [id number], 164, cm, 06/10/20 9:33:00 EST, Height, 58, [...]
--- OUTSIDE RECORDS SUMMARY | 2022-07-31 12:00 | XMS_ITS | Continuity of Care Document ---
Author Name Unknown Organization [facility] Address [address] [place] [address]- Care Team Providers Care Precision Agriculture Specialist Name Role Phone Eleonora SHIPLEY, Marah Adhikari Primary Care Physician [facility]counter [facility] Date(s): 05/02/20 - 06/01/20 [facility] [address] [place], [place] [address] Attending Physician: Sho Atkins Admitting Physician: Sho [...] Zoster Vaccine Live 03/20/09 Given 1Result Comment: [id number] 2Result Comment: [facility]:[id number] 3Result Comment: [01/17/2018] MARIE 4Admin Note: MANUFACTURE BIOMEDICAL INFO SHEET GIVEN GIVEN W/O INCIDENT 5Result Comment: [01/17/2018] MARIE 6Result Comment: [05/13/2017] [facility] [id number] 7Result Comment: [01/25/2015] [facility] Medications Afinitor By Mouth, Daily, 0 Refills, Maintenance, 02/02/20 16:44:00 EDT Start Date: 02/02/20 Status: Ordered dicyclomine 10 mg oral capsule See Instructions, 1 capsule By Mouth 2 times a day before breakfast and supper as needed for abdominal cramps, # 30 each, 1 Refills, Maintenance, 03/15/20 16:31:00 EST, Capsule, [facility]/pharmacy #[id number], Partial fill upon patient request if the prescription... Start Date: 03/15/20 Status: Ordered furosemide 20 mg oral tablet 20 mg, 1, tablet, By Mouth, Daily, check with me before authorizing refills, # 30 tablet, Refills 0, Tot. Refills 0, Maintenance, 05/13/20 14:13:00 EST, Route to Pharmacy Electronically, [facility]/pharmacy#[id number], 164, cm, 05/02/20 9:46:00 EST, Height, 58, [...]
--- OUTSIDE RECORDS SUMMARY | 2022-07-31 12:00 | XMS_ITS | Continuity of Care Document ---
Author Name Unknown Organization [facility] Address [address] [place] [address]- Care Team Providers Care Veneer Drier Feeder Name Role Phone Eleonora SHIPLEY, Marah Adhikari Primary Care Physician [facility] Date(s): 05/01/20 - 05/31/20 [facility] [address] [place], [place] [address] Allergies, Adverse Reactions, Alerts Substance [...] Zoster Vaccine Live 03/20/09 Given 1Result Comment: [id number] 2Result Comment: [facility]:[id number] 3Result Comment: [01/17/2018] MARIE 4Admin Note: MANUFACTURE BIOMEDICAL INFO SHEET GIVEN GIVEN W/O INCIDENT 5Result Comment: [01/17/2018] MARIE 6Result Comment: [05/13/2017] [facility] [phone] 7Result Comment: [01/25/2015] MARIE Medications Afinitor By [...]
--- OUTSIDE RECORDS SUMMARY | 2022-07-31 12:00 | XMS_ITS | Continuity of Care Document ---
Author Name Unknown Organization [facility] Address [address] [place] [address]- Care Team Providers Care Sales Support Specialist Name Role Phone Marah Crews MD Primary Care Physician [phone] Encounter [facility] Date(s): 09/17/21 - 09/24/21 [facility] [address] [place] [address]- Attending Physician: Mariah Reyez NP Admitting Physician: Mariah Reyez NP Referring Physician: Marah Crews MD Allergies, Adverse Reactions, Alerts No Known Allergies Immunizations Given and Recorded Vaccine Date Status Refusal Reason SARS-CoV-2 mRNA (lnrmmnl-[id number]) vax 1 07/17/21 Recorded influenza virus vaccine, [...] Live 03/20/09 Given 1Result Comment: [facility] 2Result Comment: [facility]:[id number] 3Result Comment: [01/17/2018] MARIE 4Admin Note: MANUFACTURE BIOMEDICAL INFO SHEET GIVEN GIVEN W/O INCIDENT 5Result Comment: Done at [facility] 6Result Comment: Done at [facility] 7Result Comment: Done at [facility] 8Result Comment: [id number] 9Result Comment: [01/17/2018] MARIE 10Result Comment: [05/13/2017] [facility] [id number] 11Result Comment: [01/25/2015] MARIE Medications Afinitor By [...] Gm, 1 Refills, Maintenance, 07/15/21 10:34:00 EDT, [place], [facility]/pharmacy #[id number], Partial fill upon patient request if the prescription is for a schedule II opioid drug., 1 sprays Nares, Both 2 times a day,x30 d... Start Date: 07/15/21 Stop Date: 09/13/21 Status: Ordered hydrochlorothiazide 12.5 mg oral tablet 1 tablet = 12.5 mg, By Mouth, Daily, # 90 tablet, 3 Refills, Maintenance, 07/22/21 11:22:00 EDT, Tablet, [facility]/pharmacy #[id number], 164, cm, 07/15/21 9:32:00 EDT, Height, 58, [...] oldest [Reference Range]: 1 Height 164 cm (09/17/21 10:47 AM) Weight 61 kg (09/17/21 10:47 AM) Oxygen Saturation [94-100 %] 96 % (09/17/21 10:47 AM) Pulse Rate [55-90 bpm] 83 bpm (09/17/21 10:47 AM) Body Mass Index [18.5-24.99] 22.68 (09/17/21 10:47 AM) Blood Pressure [90-138/55-84 mm Hg] 140/ 78mm Hg *H* (09/17/21 10:47 AM) Mode of Delivery (Oxygen) Room air (09/17/21 10:47 AM) Blood pressure sites Arm, left (09/17/21 10:47 AM) Dry Weight 61 kg (09/17/21 10:47 AM) Weight Obtained Via Patient/family state d (09/17/21 10:47 AM) Dry Weight Obtained Via Patient/family s tated (09/17/21 10:47 AM) Social History Social History Type Response Smoking Status Never smoker entered on: 06/10/15 Sex
--- OUTSIDE RECORDS SUMMARY | 2022-07-31 12:00 | XMS_ITS | Continuity of Care Document ---
Author Name Unknown Organization [facility] Address [address] [place] [address]- Care Team Providers Care Deputy Chief Executive Name Role Phone Eleonora SHIPLEY, Marah Adhikari Primary Care Physician [phone] Encounter [facility] Date(s): 04/29/22 - 05/29/22 [facility] [address] [place] [address]- Attending Physician: Sho Atkins Admitting Physician: Sho [...] inactivated 3 01/16/10 Gi jenifer SARS-CoV-2 mRNA (icdctqw-mlpv-llbuq) vax 4 07/17/21 Recorded SARS-CoV-2 (COVID-19) mRNA [...] Vaccine Live 03/20/09 Given 1Result Comment: [facility]:[id number] 2Result Comment: [01/17/2018] MARIE 3Admin Note: MANUFACTURE BIOMEDICAL INFO SHEET GIVEN GIVEN W/O INCIDENT 4Result Comment: [facility] 5Result Comment: Done at [facility] 6Result Comment: Done at [facility] 7Result Comment: Done at [facility] 8Result Comment: [id number] 9Result Comment: [01/17/2018] MARIE 10Result Comment: [05/13/2017] [facility] [id number] 11Result Comment: [01/25/2015] MARIE Medications Afinitor By [...] Gm, 1 Refills, Maintenance, 07/15/21 10:34:00 EDT, [place], [facility]/pharmacy #[id number], Partial fill upon patient request if the [...] on: 06/10/15 Sex Note * Event Display: Non BH Lab Results Authored Date: * Event Display: MRI Head, Non- BH Authored Date: * Event Display: MRI Abdomen, Non- BH Authored Date: * Event Display: MRI Abdomen, Non- BH Authored Date: * Event Display: Ultrasound Lower Extremity, Non-BH Authored Date: * Event Display: Ultrasound Lower Extremity, Non-BH Authored Date: * Event Display: MRI Lower Extremity, Non- BH Authored Date: * Event Display: Ultrasound Abdomen, Non-BH Authored Date: * Event Display: CT Scan Abdomen, Non- BH Authored Date: * Event Display: Ultrasound Abdomen, Non-BH Authored Date: * Event Display: Ultrasound Lower Extremity, Non-BH Authored Date: * Event Display: Ultrasound Abdomen, Non-BH Authored Date: * Event Display: Ultrasound Abdomen, Non-BH Authored Date: * Event Display: Non BH Lab Results Authored Date: * Event Display: NM Nuclear Medicine, Non-BH Authored Date: * Event Display: Non BH Lab Results Authored Date: * Event Display: MRI Abdomen, Non- BH Authored Date: * Event Display: MRI Abdomen, Non- BH Authored Date: * Event Display: X-Ray Chest, Non- BH Authored Date: * Event Display: X-Ray Hand/Wrist, Non- BH Authored Date: * Event Display: Bone Density, Non-BH Authored Date: Patient Care team information Care Team Personnel Name: Marah Crews MD Position: [facility] Primary Care Physician Member Role: PCP Address: Address: [address] [place] [address] Adult [place] [address]- [place] Name: [place] SHIPLEY, Rachidogu Position: [facility] Physician (General Medicine) Member Role: Lifetime Consulting Physician Address: Address: [address] [place] [address] Radiology [place] [address]- [place] Care Team Related Persons Name: JOANNA GONZALEZ Address: [place] [address] Name: MORALES GONZALEZ Address: home [address] [place] [address]
--- OUTSIDE RECORDS SUMMARY | 2022-07-31 12:00 | XMS_ITS | Continuity of Care Document ---
Author Name Unknown Organization [facility] Address [address] [place] [address]- Care Team Providers Care Hr Director Name Role Phone Eleonora SHIPLEY, Marah Adhikari Primary Care Physician [facility] Date(s): 03/02/21 - 04/01/21 [facility] [address] [place] [address]- Allergies, Adverse Reactions, Alerts Substance Reaction Severity [...] Zoster Vaccine Live 03/20/09 Given 1Result Comment: [facility]:[id number] 2Result Comment: [01/17/2018] MARIE 3Admin Note: MANUFACTURE BIOMEDICAL INFO SHEET GIVEN GIVEN W/O INCIDENT 4Result Comment: Done at [facility] 5Result Comment: Done at [facility] 6Result Comment: Done at [facility] 7Result Comment: [id number] 8Result Comment: [01/17/2018] MARIE 9Result Comment: [05/13/2017] [facility] [id number] 10Result Comment: [01/25/2015] MARIE Medications Afinitor By [...] 1 Refills, Maintenance, 02/26/21 10:40:00 EST, Tablet, [facility]/pharmacy #[id number], Partial fill upon patient request if the [...]
--- OUTSIDE RECORDS SUMMARY | 2022-07-31 12:00 | XMS_ITS | Continuity of Care Document ---
Author Name Unknown Organization [facility] Address [address] [place] [address]- Care Team Providers Care Sow Farm Technician Name Role Phone Eleonora SHIPLEY, Marah Adhikari Primary Care Physician Encounter [facility] Date(s): 11/11/21 - 12/11/21 [facility] [address] [place] [address]- Attending Physician: Sho Atkins Admitting Physician: AdmSho barnett Referring Physician: AdmtrSho Allergies, Adverse Reactions, Alerts No Known Allergies Immunizations Given and Recorded Vaccine Date Status Refusal Reason SARS-CoV-2 mRNA (jugpaxy-lgwi-ffjag) vax 1 07/17/21 Recorded influenza virus vaccine, [...] Vaccine Live 03/20/09 Given 1Result Comment: [facility] 2Result Comment: [facility]:[id number] 3Result Comment: [01/17/2018] MARIE 4Admin Note: MANUFACTURE BIOMEDICAL INFO SHEET GIVEN GIVEN W/O INCIDENT 5Result Comment: Done at [facility] 6Result Comment: Done at [facility] 7Result Comment: Done at [facility] 8Result Comment: [id number] 9Result Comment: [01/17/2018] MARIE 10Result Comment: [05/13/2017] [facility] [id number] 11Result Comment: [01/25/2015] MARIE Medications Afinitor By [...] Gm, 1 Refills, Maintenance, 07/15/21 10:34:00 EDT, [place], [facility]/pharmacy #[id number], Partial fill upon patient request if the prescription is for a schedule II opioid drug., 1 sprays Nares, Both 2 times a day,x30 d... Start Date: 07/15/21 Stop Date: 09/13/21 Status: Ordered hydrochlorothiazide 12.5 mg oral tablet 1 tablet = 12.5 mg, By Mouth, Daily, # 90 tablet, 3 Refills, Maintenance, 07/22/21 11:22:00 EDT, Tablet, [facility][id number], 164, cm, 07/15/21 9:32:00 EDT, Height, 58, [...] Personnel Name: Eleonora SHIPLEY, Marah Adhikari Address: [address] [place] [address] Adult & Pediatric [place], [place] [address]
--- OUTSIDE RECORDS SUMMARY | 2022-07-31 12:00 | XMS_ITS | Continuity of Care Document ---
Author Name Unknown Organization [facility] Address [address] [place] [address]- Care Team Providers Care Client Executive Name Role Phone Eleonora SHIPLEY, Marah Adhikari Primary Care Physician [phone] [place] [facility] [place]s): 01/01/[place] - 01/08/21 [facility] [address] [place] [address]- Attending Physician: Marah Crews MD Allergies, Adverse [...] Live 03/20/09 Given 1Result Comment: Done at [facility] 2Result Comment: Done at [facility] 3Result Comment: Done at [facility] 4Result Comment: [facility]:[id number] 5Result Comment: [01/17/2018] MARIE 6Admin Note: MANUFACTURE BIOMEDICAL INFO SHEET GIVEN GIVEN W/O INCIDENT 7Result Comment: [id number] 8Result Comment: [01/17/2018] MARIE 9Result Comment: [05/13/2017] [facility] [id number] 10Result Comment: [01/25/2015] MARIE Medications Afinitor By [...] [Reference Range]: 1 2 Height 164 cm (01/01/21 9:53 AM) 164 cm (01/01/21 9:48 AM) Weight 59.7 kg (01/01/21 9:48 AM) Oxygen Saturation [94-100 %] 98 % (01/01/21 9:48 AM) Pulse Rate [55-90 bpm] 80 bpm (01/01/21 9:48 AM) Body Mass Index [18.5-24.99] 22.2 (01/01/21 9:48 AM) Blood Pressure [90-138/55-84 mm Hg] 148/ 76mm Hg *H* (01/01/21 9:53 AM) 150/80mm Hg *H* (01/01/21 9:48 AM) Temperature [96.8-100.4 DegF] 98.4 DegF (01/01/21 9:48 AM) Mode of Delivery (Oxygen) Room air (01/01/21 9:48 AM) Blood pressure sites Arm, left (01/01/21 9:53 AM) Arm, left (01/01/21 9:48 AM) Temperature Route Temporal (01/01/21 9:48 AM) Weight Obtained Via Standing scale (01/01/21 9:48 AM) Social History Social History Type Response Smoking Status Never smoker entered on: 06/10/15 Sex
--- OUTSIDE RECORDS SUMMARY | 2022-07-31 12:00 | XMS_ITS | Continuity of Care Document ---
Author Name Unknown Organization [facility] Address [address] [place] [address]- Care Team Providers Care Twisting Frame Operator Name Role Phone Marah Crews MD Primary Care Physician [facility]counter [facility] Date(s): 06/21/20 - 07/27/[address] [address]- Attending Physician: Harley Doty MD Admitting Physician: [...] Zoster Vaccine Live 03/20/09 Given 1Result Comment: [id number] 2Result Comment: [facility]:[id number] 3Result Comment: [01/17/2018] MARIE 4Admin Note: MANUFACTURE BIOMEDICAL INFO SHEET GIVEN GIVEN W/O INCIDENT 5Result Comment: [01/17/2018] MARIE 6Result Comment: [05/13/2017] [facility] [phone] 7Result Comment: [01/25/2015] MARIE Medications Afinitor By Mouth, Daily, 0 Refills, Maintenance, 02/02/20 16:44:00 EDT Start Date: 02/02/20 Status: Ordered furosemide 20 mg oral tablet 1, tablet, By Mouth, Daily, # 30 tablet, Refills 0, Tot. Refills 0, Maintenance, 06/11/20 11:31:00 EST, Route to Pharmacy Electronically, [id number], 164, cm, 06/10/20 9:33:00 EST, Height, 58, [...]
--- NOTE | 2022-07-31 12:23 | PHA.MEDREC ---
Pharmacy Consult ? Medication Reconciliation Pharmacy has completed the medication reconciliation.
--- NOTE | 2022-07-31 16:13 | PM.EVENT ---
Event Note Date of Service: 07/31/22 Event Note: pt seen postop underwent HALS sigmoid resection earlier appears to have good pain control looks comfortable stable VS good UO - clear reviewed with her procedure done updated continue pain control on clear liquids incentive spirometry OOB Time Spent With Patient Time: Total time managing care of this patient today ____ minutes.
[2022-07-31] MEDS: Acetaminophen 1,000 MG/100 ML PIGGYBACK 400 MG IV ×2 (16:19→22:24)
[2022-07-31] MEDS: Valsartan 40 MG TABLET PO (20:01)
[2022-07-31] MEDS: Tamoxifen Citrate 10 MG TABLET 20 MG PO (20:06)
[2022-08-01] MEDS: Lactated Ringers 1,000 ML 80 ML IVCONT ×3 (01:21→22:14)
[2022-08-01 03:56] VITALS: BP 90/48; PULSE 92; RESP 16; TEMP 36.9; O2SAT 95
[2022-08-01] MEDS: Acetaminophen 1,000 MG/100 ML PIGGYBACK 400 MG IV ×4 (04:47→22:13)
[2022-08-01 06:20] VITALS: BP 95/58; PULSE 84
[2022-08-01 06:35] LABS: MANUAL DIFF FLAG NO
[2022-08-01 06:43] LABS: Basophils Percent Auto 0.2 % (0-2); Hematocrit 24.8 % (37.0-47.0); Hemoglobin 7.8 g/dl (12.0-16.0); Imm Gran Abs Auto 0.01 X10*3/uL (0.00-0.03); Imm Gran Pct Auto 0.2 % (0.0-0.4); Lymphocytes Absolute Auto 0.6 X10*3/uL (1.2-4.9); Lymphocytes Percent Auto 10.4 % (20-40); Mean Corpuscular HGB Conc 31.5 g/dl (31.0-35.0); Mean Corpuscular Hemoglobin 26.1 pg (27.0-33.0); Mean Corpuscular Volume 82.9 fL (80.0-98.0); Mean Platelet Volume 11.8 fL (9.4-12.3); Monocytes Absolute Auto 0.7 X10*3/uL (0.1-1.2); Monocytes Percent Auto 12.6 % (2-11); Neutrophils Absolute Auto 4.1 x10*3/uL (2.0-8.3); Neutrophils Percent Auto 76.6 % (45-73); Platelet Count 148 X10*3/uL (160-400); Red Blood Count 2.99 X10*6/uL (4.20-5.50); Red Cell Distribution Width 14.4 % (11.0-16.0); White Blood Count 5.3 X10*3/uL (4.8-10.8)
[2022-08-01 06:54] LABS: Anion Gap 17 (12-20); Blood Urea Nitrogen 16 mg/dL (9-16); Carbon Dioxide 15 mmol/L (22-29); Chloride 104 mmol/L (96-108); Creatinine Clr Calc Pharmacy 51.2; Estimated Glomerular Filt Rate > 60; Glucose Random 76 mg/dL (60-115); Potassium 4.7 mmol/L (3.3-5.1); Sodium 131 mmol/L (135-145)
[2022-08-01 08:00] VITALS: BP 140/60; PULSE 84; RESP 20; TEMP 36.8; O2SAT 97
[2022-08-01] MEDS: 0.9 % Sodium Chloride Flush 3 ML SYRINGE IVFLUSH ×2 (09:58→20:31)
[2022-08-01] MEDS: Valsartan 80 MG TABLET PO (10:00)
[2022-08-01] MEDS: Omeprazole 20 MG CAPSULE.DR PO (10:00)
[2022-08-01] MEDS: Magnesium Oxide 400 MG TABLET PO (10:00)
[2022-08-01] MEDS: Heparin Sodium,Porcine 5,000 UNIT/ML VIAL 5000 UNIT SUBCUT ×2 (11:59→20:31)
--- NOTE | 2022-08-01 13:41 | PC.NURSE ---
F/C removed at 1330, DTV by 1929, patient tolerated well
--- NOTE | 2022-08-01 14:46 | HO.POSTANES ---
Post Anesthesia Evaluation Post Anesthesia Evaluation Vital Signs: Vital Signs Temp Pulse Resp BP Pulse Ox O2 Del Method 08/01/22 08:00 98.2 F 84 20 140/60 H 97 Room Air 08/01/22 06:20 84 95/58 L 08/01/22 03:56 98.4 F 92 16 90/48 L 95 Room Air Anesthesia: General Endotracheal-GETA Mental Status: Awake Pain Control: Satisfactory Nausea/Vomiting: None Hydration: Adequate Anesthesia-Related Issues: No Anes. Related Issues
--- NOTE | 2022-08-01 15:09 | P.PNGS_ITS ---
Subjective Subjective Date of Service: 08/01/22 Interval history: Patient is doing well she sitting up in a chair looks great feels well wants had a Peterson to come out. She denies any nausea or vomiting she is tolerating liquids well slept well. Physical Exam Vital Signs: Vital Signs: Last Vital Signs Temp 98.2 F 08/01/22 08:00 Pulse 84 08/01/22 08:00 Resp 20 08/01/22 08:00 BP 140/60 H 08/01/22 08:00 Pulse Ox 97 08/01/22 08:00 O2 Del Method Room Air 08/01/22 08:00 O2 Flow Rate 2 07/31/22 12:45 BMI result Body Mass Index 22.3 Const: General: cooperative, healthy appearing, comfortable, no acute distress, alert and awake Orientation/consciousness: oriented to person, oriented to place and oriented to time HEENT: Head: Yes normal to inspection Resp: Effort & Inspection: normal respiratory effort and able to speak in complete sentences Auscultation: clear to auscultation bilaterally Cardio: Rate: regular rate Rhythm: regular rhythm GI: Other: Abdomen is soft nondistended bandages are intact with a little bit of some bloody stain but not very much. She has some hypo bowel sounds present : Other: Peterson catheter with clear urine Skin: General skin exam: no rashes or lesions noted and no jaundice Neuro: General: oriented to person, oriented to place and oriented to time Cranial nerves: Yes CN's II-XII intact bilaterally Extrem: General: Yes normal to inspection Psych: Appearance: grossly normal Mental Status: mental status grossly normal Speech and movement: Normal speech and movement present Affect: normal affect Attitude: cooperative Thought process: Normal thought process present Objective Data Active Medications Heparin Sodium (Porcine) (Heparin Sodium,Porcine 5,000 Unit/Ml Vial) 5,000 unit SUBCUT Q12H COUNTS INCLUDE 234 BEDS AT THE [facility] Last Admin: 08/01/22 11:59 Dose: 5,000 unit Documented By: JERRY Acetaminophen (Ofirmev) 1,000 mg in 100 mls @ 400 mls/hr IV Q6H COUNTS INCLUDE 234 BEDS AT THE [facility] Last Infusion: 08/01/22 10:20 Dose: 0 mls/hr Documented By: JERRY Lactated Ringer's (Lr) 1,000 mls @ 80 mls/hr IVCONT .[id number] COUNTS INCLUDE 234 BEDS AT THE [facility] Last Admin: 08/01/22 12:01 Dose: 80 mls/hr Documented By: JERRY Lorazepam (Lorazepam 0.5 Mg Tablet) 0.5 mg PO BID PRN PRN Reason: Anxiety Magnesium Oxide (Magnesium Oxide 400 Mg Tablet) 400 mg PO DAILY COUNTS INCLUDE 234 BEDS AT THE [facility] Last Admin: 08/01/22 10:00 Dose: 400 mg Documented By: JERRY Melatonin (Melatonin 3 Mg Tablet) 6 mg PO BEDTIME PRN PRN Reason: Insomnia Morphine Sulfate (Morphine Sulfate 4 Mg/Ml Cartridge) 4 mg IVPUSH Q4H PRN; Protocol PRN Reason: Pain, Severe (Pain Scale 7-10) Omeprazole (Omeprazole 20 Mg Capsule.Dr) 20 mg PO DAILY COUNTS INCLUDE 234 BEDS AT THE [facility] Last Admin: 08/01/22 10:00 Dose: 20 mg Documented By: JERRY Ondansetron HCl (Ondansetron Hcl 4 Mg/2 Ml Vial) 4 mg IVPUSH Q8H PRN PRN Reason: Nausea and Vomiting Oxycodone HCl (Oxycodone Hcl Immed Release 5 Mg Tablet) 5 mg PO Q4H PRN PRN Reason: Pain, Moderate (Pain Scale 4-6 Sodium Chloride (0.9 % Sodium Chloride Flush 3 Ml Syringe) 3 ml IVFLUSH QSHIFT COUNTS INCLUDE 234 BEDS AT THE [facility] Last Admin: 08/01/22 09:58 Dose: 3 ml Documented By: JERRY Tamoxifen Citrate (Tamoxifen Citrate 10 Mg Tablet) 20 mg PO BEDTIME COUNTS INCLUDE 234 BEDS AT THE [facility] Last Admin: 07/31/22 20:06 Dose: 20 mg Documented By: DARIUS Valsartan (Valsartan 80 Mg Tablet) 80 mg PO DAILY COUNTS INCLUDE 234 BEDS AT THE [facility] Last Admin: 08/01/22 10:00 Dose: 80 mg Documented By: JERRY Valsartan (Valsartan 40 Mg Tablet) 40 mg PO BEDTIME COUNTS INCLUDE 234 BEDS AT THE [facility] Last Admin: 07/31/22 20:01 Dose: 40 mg Documented By: DARIUS Labs 08/01/22 05:42 08/01/22 05:42 Labs: Laboratory Results - last 24 hr 08/01/22 08/01/22 05:42 05:42 MCV 82.9 MCH 26.1 L MCHC 31.5 RDW 14.4 Plt Count 148 L MPV 11.8 Immature Gran % (Auto) 0.2 Neut % (Auto) 76.6 H Lymph % (Auto) 10.4 L [place] % (Auto) 12.6 H Eos % (Auto) 0.0 Baso % (Auto) 0.2 Lymph # (Auto) 0.6 L [place] # (Auto) 0.7 Eos # (Auto) 0.0 Baso # (Auto) 0.0 Abs Immat Gran (auto) 0.01 Absolute Neuts (auto) 4.1 Absolute Nucleated RBC 0.000 Nucleated RBC % (auto) 0.0 Anion Gap 17 Estim Creat Clear Calc 51.2 Estimated GFR > 60 Random Glucose 76 Calcium 7.0 L D Procedures Date of Service Date of Service: 08/01/22 Progress Note: A&P Assessment and plan (1) Colon cancer: Status: Acute Assessment and Plan: patient is a 71-year-old female who is 1 day status post laparoscopic sigmoid colectomy for colon cancer doing really quite well she. She looks great. Plan to continue with clear liquid diet for another day and re-evaluate then. Will DC her Peterson catheter continue with pain management with some p.o. and IV meds. Recommend incentive spirometer and moving around. Patient also has metastatic breast cancer and takes chemo therapy pills for this. She takes a daily. We talked today about her taking her pills and I think with everything going on it would be feasible to hold for at least a day or 2. She is taking some p.o. intake but she may not be absorbing well and I am concerned that she may get a little nauseated. She has not really passed gasses yet. Otherwise looking fine. We discussed this with her family and will of just reassess the medication for tomorrow. Otherwise plan to continue care until return of GI function Time Spent With Patient Time: Total time managing care of this patient today ____ minutes. Quality Stroke Does the patient have a stroke diagnosis?: No VTE Prior VTE?: No VTE Risk Level:: Surgical - high VTE Device Contraindication: N/A - Device Ordered VTE Drug Contraindication: N/A - Med Ordered
[2022-08-01 16:00] VITALS: BP 111/57; PULSE 86; RESP 18; TEMP 36.3; O2SAT 97
--- NOTE | 2022-08-01 16:02 | MHC.CM.PN ---
PATIENT LIVES WITH HER HCP/SPOUSE (HCP IN CAR AND WILL BE BROUGHT UP FOR MEDICAL RECORD) NO DME OR VNA SERVICES PATIENT IS INDEPENDENT WITH LL ADLS. POSSIBLE HOME WEDNESDAY PLAN WILL BE FOLLOW UP WITH ONCOLOGY. IMM 08/01 IN CHART
[2022-08-01 20:00] VITALS: BP 110/59; PULSE 80; RESP 16; TEMP 36.4; O2SAT 95
[2022-08-01] MEDS: Valsartan 40 MG TABLET PO (20:28)
[2022-08-02 04:00] VITALS: BP 131/63; PULSE 80; RESP 18; TEMP 36; O2SAT 97
[2022-08-02 06:14] LABS: MANUAL DIFF FLAG NO
[2022-08-02 06:23] LABS: Basophils Percent Auto 0.5 % (0-2); Eosinophils Absolute Auto 0.1 X10*3/uL (0.0-0.4); Hematocrit 26.5 % (37.0-47.0); Hemoglobin 8.7 g/dl (12.0-16.0); Imm Gran Abs Auto 0.02 X10*3/uL (0.00-0.03); Imm Gran Pct Auto 0.3 % (0.0-0.4); Lymphocytes Absolute Auto 0.8 X10*3/uL (1.2-4.9); Lymphocytes Percent Auto 13.3 % (20-40); Mean Corpuscular HGB Conc 32.8 g/dl (31.0-35.0); Mean Corpuscular Hemoglobin 26.5 pg (27.0-33.0); Mean Corpuscular Volume 80.8 fL (80.0-98.0); Mean Platelet Volume 11.5 fL (9.4-12.3); Monocytes Absolute Auto 1.1 X10*3/uL (0.1-1.2); Monocytes Percent Auto 17.3 % (2-11); Neutrophils Absolute Auto 4.2 x10*3/uL (2.0-8.3); Neutrophils Percent Auto 67.6 % (45-73); Platelet Count 147 X10*3/uL (160-400); Red Blood Count 3.28 X10*6/uL (4.20-5.50); Red Cell Distribution Width 14.3 % (11.0-16.0); White Blood Count 6.2 X10*3/uL (4.8-10.8)
[2022-08-02 07:30] VITALS: BP 142/72; PULSE 80; RESP 20; TEMP 36.2; O2SAT 94
[2022-08-02] MEDS: Omeprazole 20 MG CAPSULE.DR PO (09:45)
[2022-08-02] MEDS: Magnesium Oxide 400 MG TABLET PO (09:45)
[2022-08-02] MEDS: Acetaminophen 1,000 MG/100 ML PIGGYBACK 400 MG IV ×2 (09:45→16:31)
[2022-08-02] MEDS: Valsartan 80 MG TABLET PO (09:45)
--- NOTE | 2022-08-02 10:14 | MHC.CM.PN ---
HCP RECEIVED AND UPLOADED INTO [facility] COPY ALSO PLACED IN CHART FOR MEDICAL RECORDS
--- NOTE | 2022-08-02 12:54 | P.PNGS_ITS ---
Subjective Subjective Date of Service: 08/02/22 Interval history: feels well, passing gas and stool several times. initially bm were bloody but better this early am Physical Exam Vital Signs: Vital Signs: Last Vital Signs Temp 97.2 F 08/02/22 07:30 Pulse 80 08/02/22 07:30 Resp 20 08/02/22 07:30 BP 142/72 H 08/02/22 07:30 Pulse Ox 94 08/02/22 07:30 O2 Del Method Room Air 08/02/22 07:30 O2 Flow Rate 2 07/31/22 12:45 BMI result Body Mass Index 22.3 Const: General: cooperative, healthy appearing, comfortable and no acute distress HEENT: Head: Yes normal to inspection Resp: Effort & Inspection: normal respiratory effort Cardio: Rate: regular rate Rhythm: regular rhythm GI: Other: soft nondistended good bowel sounds incision looks great Skin: General skin exam: no rashes or lesions noted Extrem: General: Yes normal to inspection Objective Data Active Medications Heparin Sodium (Porcine) (Heparin Sodium,Porcine 5,000 Unit/Ml Vial) 5,000 unit SUBCUT Q12H [facility] Last Admin: 08/01/22 20:31 Dose: 5,000 unit Documented By: ANTOIC Acetaminophen (Ofirmev) 1,000 mg in 100 mls @ 400 mls/hr IV Q6H [facility] Last Infusion: 08/02/22 10:11 Dose: 0 mls/hr Documented By: JERRY Lactated Ringer's (Lr) 1,000 mls @ 80 mls/hr IVCONT .[id number] [facility] Last Infusion: 08/02/22 10:53 Dose: 0 mls/hr Documented By: JERRY Lorazepam (Lorazepam 0.5 Mg Tablet) 0.5 mg PO BID PRN PRN Reason: Anxiety Magnesium Oxide (Magnesium Oxide 400 Mg Tablet) 400 mg PO DAILY [facility] Last Admin: 08/02/22 09:45 Dose: 400 mg Documented By: JERRY Melatonin (Melatonin 3 Mg Tablet) 6 mg PO BEDTIME PRN PRN Reason: Insomnia Morphine Sulfate (Morphine Sulfate 4 Mg/Ml Cartridge) 4 mg IVPUSH Q4H PRN; Protocol PRN Reason: Pain, Severe (Pain Scale 7-10) Omeprazole (Omeprazole 20 Mg Capsule.Dr) 20 mg PO DAILY [facility] Last Admin: 08/02/22 09:45 Dose: 20 mg Documented By: JERRY Ondansetron HCl (Ondansetron Hcl 4 Mg/2 Ml Vial) 4 mg IVPUSH Q8H PRN PRN Reason: Nausea and Vomiting Oxycodone HCl (Oxycodone Hcl Immed Release 5 Mg Tablet) 5 mg PO Q4H PRN PRN Reason: Pain, Moderate (Pain Scale 4-6 Sodium Chloride (0.9 % Sodium Chloride Flush 3 Ml Syringe) 3 ml IVFLUSH QSHIFT [facility] Last Admin: 08/02/22 09:57 Dose: Not Given Documented By: JERRY Non-Admin Reason: IV Running Tamoxifen Citrate (Tamoxifen Citrate 10 Mg Tablet) 20 mg PO BEDTIME [facility] Last Admin: 08/01/22 20:29 Dose: Not Given Documented By: MARTIN Non-Admin Reason: Physician Held Med Valsartan (Valsartan 80 Mg Tablet) 80 mg PO DAILY [facility] Last Admin: 08/02/22 09:45 Dose: 80 mg Documented By: JERRY Valsartan (Valsartan 40 Mg Tablet) 40 mg PO BEDTIME [facility] Last Admin: 08/01/22 20:28 Dose: 40 mg Documented By: ANTOIC Labs 08/02/22 05:21 08/01/22 05:42 Labs: Laboratory Results - last 24 hr 08/02/22 05:21 MCV 80.8 MCH 26.5 L MCHC 32.8 RDW 14.3 Plt Count 147 L MPV 11.5 Immature Gran % (Auto) 0.3 Neut % (Auto) 67.6 Lymph % (Auto) 13.3 L [place] % (Auto) 17.3 H Eos % (Auto) 1.0 Baso % (Auto) 0.5 Lymph # (Auto) 0.8 L [place] # (Auto) 1.1 Eos # (Auto) 0.1 Baso # (Auto) 0.0 Abs Immat Gran (auto) 0.02 Absolute Neuts (auto) 4.2 Absolute Nucleated RBC 0.000 Nucleated RBC % (auto) 0.0 Procedures Date of Service Date of Service: 08/02/22 Progress Note: A&P Assessment and plan (1) Colon cancer: Status: Acute Assessment and Plan: pod#2 sp sig colecomty for cancer doing so well advance diet with some toas and clear liquids, heplock ivf, ambulate, resume her cancer meds tomorrow Time Spent With Patient Time: Total time managing care of this patient today ____ minutes. Quality Stroke Does the patient have a stroke diagnosis?: No VTE Prior VTE?: No VTE Risk Level:: Surgical - high VTE Device Contraindication: N/A - Device Ordered VTE Drug Contraindication: N/A - Med Ordered
[2022-08-02] MEDS: Heparin Sodium,Porcine 5,000 UNIT/ML VIAL 5000 UNIT SUBCUT (13:22)
[2022-08-02 16:05] VITALS: BP 127/58; PULSE 89; RESP 20; TEMP 36.6; O2SAT 97
[2022-08-02] MEDS: 0.9 % Sodium Chloride Flush 3 ML SYRINGE IVFLUSH ×2 (16:31→20:53)
[2022-08-02 19:19] VITALS: BP 117/56; PULSE 91; RESP 16; TEMP 36.1; O2SAT 99
[2022-08-02] MEDS: Valsartan 40 MG TABLET PO (20:52)
[2022-08-02] MEDS: Tamoxifen Citrate 10 MG TABLET 20 MG PO (20:52)
[2022-08-03] MEDS: Heparin Sodium,Porcine 5,000 UNIT/ML VIAL 5000 UNIT SUBCUT ×3 (00:23→21:05)
[2022-08-03 02:59] VITALS: BP 125/58; PULSE 74; RESP 16; TEMP 36.3; O2SAT 95
[2022-08-03] MEDS: Acetaminophen 1,000 MG/100 ML PIGGYBACK 400 MG IV (05:15)
[2022-08-03 07:06] VITALS: BP 125/60; PULSE 83; RESP 18; TEMP 36.1; O2SAT 97
[2022-08-03 07:08] LABS: Hematocrit 25.6 % (37.0-47.0); Hemoglobin 8.4 g/dl (12.0-16.0)
--- NOTE | 2022-08-03 08:10 | PM.PNGS ---
Subjective Subjective Date of Service: 08/03/22 <Marilyn Zepeda PA-C - Last Filed: 08/03/22 08:15> 08/04/22 <Filemon Urrutia MD - Last Filed: 08/04/22 09:47> Interval history: Had bloody BM over the weekend. Had a nonbloody BM this am. Tolerating clears. Feels hungry. OOB and ambulating without difficulty. <Marilyn Zepeda PA-C - Last Filed: 08/03/22 08:15> Physical Exam Vital Signs: Vital Signs: Last Vital Signs Temp 97 F 08/03/22 07:06 Pulse 83 08/03/22 07:06 Resp 18 08/03/22 07:06 BP 125/60 08/03/22 07:06 Pulse Ox 97 08/03/22 07:06 O2 Del Method Room Air 08/03/22 07:06 O2 Flow Rate 2 07/31/22 12:45 BMI result Body Mass Index 22.3 <Marilyn Zepeda PA-C - Last Filed: 08/03/22 08:15> Const: General: comfortable and alert <Marilyn Zepeda PA-C - Last Filed: 08/03/22 08:15> Orientation/consciousness: patient oriented x3 <JAYLA Sands Last Filed: 08/03/22 08:15> Resp: Effort & Inspection: normal respiratory effort <JAYLA Sands Last Filed: 08/03/22 08:15> GI: Inspection: No distended and Yes incision (clean) <Marilyn Zepeda PA-C - Last Filed: 08/03/22 08:15> Palpation (GI): Soft to palpation, Tenderness to palpation present (GI) (mild incisional), no guarding and not rigid <JAYLA Sands Last Filed: 08/03/22 08:15> Percussion: Yes normal to percussion <JAYLA Sands Last Filed: 08/03/22 08:15> Skin: General skin exam: no rashes or lesions noted <JAYLA Sands Last Filed: 08/03/22 08:15> Neuro: General: patient oriented x3 and moves all extremities <Marilyn Zepeda PA-C - Last Filed: 08/03/22 08:15> Objective Data Active Medications Acetaminophen (Acetaminophen 325 Mg Tablet) 650 mg PO Q6H PRN PRN Reason: Pain, Mild (Pain Scale 1-3) Heparin Sodium (Porcine) (Heparin Sodium,Porcine 5,000 Unit/Ml Vial) 5,000 unit SUBCUT Q12H [facility] Last Admin: 08/03/22 00:23 Dose: 5,000 unit Documented By: MICAELA Lorazepam (Lorazepam 0.5 Mg Tablet) 0.5 mg PO BID PRN PRN Reason: Anxiety Magnesium Oxide (Magnesium Oxide 400 Mg Tablet) 400 mg PO DAILY [facility] Last Admin: 08/02/22 09:45 Dose: 400 mg Documented By: JERRY Melatonin (Melatonin 3 Mg Tablet) 6 mg PO BEDTIME PRN PRN Reason: Insomnia Morphine Sulfate (Morphine Sulfate 4 Mg/Ml Cartridge) 4 mg IVPUSH Q4H PRN; Protocol PRN Reason: Pain, Severe (Pain Scale 7-10) Patient Own ( Everolimus ( Antineoplastic) 10 Mg Tablet) 10 mg PO BEDTIME [facility] Omeprazole (Omeprazole 20 Mg Capsule.Dr) 20 mg PO DAILY [facility] Last Admin: 08/02/22 09:45 Dose: 20 mg Documented By: JERRY Ondansetron HCl (Ondansetron Hcl 4 Mg/2 Ml Vial) 4 mg IVPUSH Q8H PRN PRN Reason: Nausea and Vomiting Oxycodone HCl (Oxycodone Hcl Immed Release 5 Mg Tablet) 5 mg PO Q4H PRN PRN Reason: Pain, Moderate (Pain Scale 4-6 Sodium Chloride (0.9 % Sodium Chloride Flush 3 Ml Syringe) 3 ml IVFLUSH QSHIFT [facility] [place] Last Admin: 08/02/22 20:53 Dose: 3 ml Documented By: ELICEO Tamoxifen Citrate (Tamoxifen Citrate 10 Mg Tablet) 20 mg PO BEDTIME [facility] [place] Last Admin: 08/02/22 20:52 Dose: 20 mg Documented By: ELICEO Valsartan (Valsartan 80 Mg Tablet) 80 mg PO DAILY [facility] Last Admin: 08/02/22 09:45 Dose: 80 mg Documented By: JERRY Valsartan (Valsartan 40 Mg Tablet) 40 mg PO BEDTIME [facility] Last Admin: 08/02/22 20:52 Dose: 40 mg Documented By: ELICEO <Marilyn Zepeda PA-C - Last Filed: 08/03/22 08:15> Labs CBC & Chem 7: 08/03/22 06:04 08/01/22 05:42 <Marilyn Zepeda PA-C - Last Filed: 08/03/22 08:15> Procedures Date of Service Date of Service: 08/03/22 <Marilyn Zepeda PA-C - Last Filed: 08/03/22 08:15> Progress Note: A&P Assessment and plan (1) Colon cancer: Status: Acute <Marilyn Zepeda PA-C - Last Filed: 08/03/22 08:15> (2) Status post laparoscopic-assisted sigmoidectomy: Status: Acute <Marilyn Zepeda PA-C - Last Filed: 08/03/22 08:15> Assessment and Plan: denies significant pain passing good flatus had BMs, - nonbloody this time abd soft diet as tolerated seen and examined independently await path <Filemon Urrutia MD - Last Filed: 08/04/22 09:47> Assessment and Plan: 71 year old female POD #3 s/p Hand assisted laparoscopic sigmoid resection with intraop flexible sigmoidoscopy. Doing well post op. Had bloody BM which has resolved. Abd very benign with clean incisions. H/H stable. Advance to low residue diet. Will dc IV tylenol and switch to PO. Home later today or tomorrow if tolerating and pain control remains adequate. <Marilyn Zepeda PA-C - Last Filed: 08/03/22 08:15> Time Spent With Patient Time: Total time managing care of this patient today ____ minutes. <Marilyn Zepeda PA-C - Last Filed: 08/03/22 08:15> Quality Stroke Does the patient have a stroke diagnosis?: No <JAYLA Sands Last Filed: 08/03/22 08:15> VTE Prior VTE?: No <Marilyn Zepeda PA-C - Last Filed: 08/03/22 08:15> VTE Risk Level:: Surgical - high <Marilyn Zepeda PA-C - Last Filed: 08/03/22 08:15> VTE Device Contraindication: N/A - Device Ordered <Marilyn Zepeda PA-C - Last Filed: 08/03/22 08:15> VTE Drug Contraindication: N/A - Med Ordered <Marilyn Zepeda PA-C - Last Filed: 08/03/22 08:15>
[2022-08-03] MEDS: Omeprazole 20 MG CAPSULE.DR PO (08:50)
[2022-08-03] MEDS: Magnesium Oxide 400 MG TABLET PO (08:50)
[2022-08-03] MEDS: Valsartan 80 MG TABLET PO (08:50)
[2022-08-03] MEDS: 0.9 % Sodium Chloride Flush 3 ML SYRINGE IVFLUSH ×3 (13:29→21:06)
[2022-08-03 14:35] VITALS: BMI 22.3
--- NOTE | 2022-08-03 14:35 | MHC.CM.PN ---
Per MD round no discharge today. DP home self care. patient will arrange for transport
--- NOTE | 2022-08-03 15:00 | PC.NURSE ---
Assumed care of patient at this time.
[2022-08-03 16:00] VITALS: BP 138/67; PULSE 92; RESP 16; TEMP 37.5; O2SAT 99
[2022-08-03 20:00] VITALS: BP 134/62; PULSE 98; RESP 16; TEMP 36.6; O2SAT 97
[2022-08-03] MEDS: Valsartan 40 MG TABLET PO (21:05)
[2022-08-03] MEDS: Tamoxifen Citrate 10 MG TABLET 20 MG PO (21:05)
[2022-08-03] MEDS: Acetaminophen 325 MG TABLET 650 MG PO (21:05)
[2022-08-03] MEDS: LORazepam 0.5 MG TABLET PO (21:05)
[2022-08-04 03:38] VITALS: BP 151/77; PULSE 81; RESP 16; TEMP 36.6; O2SAT 94
[2022-08-04 07:38] VITALS: BP 149/70; PULSE 90; RESP 16; TEMP 36.9; O2SAT 96
[2022-08-04 08:00] VITALS: TEMP 36.6
--- NOTE | 2022-08-04 08:18 | P.PNGS_ITS ---
Subjective Subjective Date of Service: 08/04/22 <Marilyn Zepeda PA-C - Last Filed: 08/04/22 08:20> 08/04/22 <Filemon Urrutia MD - Last Filed: 08/04/22 09:47> Interval history: Feels well. Has some mild discomfort when moving but otherwise denies pain. Tolerating solid diet. Having small, non bloody BM. Wants to go home. <Marilyn Zepeda PA-C - Last Filed: 08/04/22 08:20> Physical Exam Vital Signs: Vital Signs: Last Vital Signs Temp 98.5 F 08/04/22 07:38 Pulse 90 08/04/22 07:38 Resp 16 08/04/22 07:38 BP 149/70 H 08/04/22 07:38 Pulse Ox 96 08/04/22 07:38 O2 Del Method Room Air 08/04/22 07:38 O2 Flow Rate 2 07/31/22 12:45 BMI result Body Mass Index 22.3 <Marilyn Zepeda PA-C - Last Filed: 08/04/22 08:20> Const: General: healthy appearing, comfortable, no acute distress and alert <Marilyn Zepeda PA-C - Last Filed: 08/04/22 08:20> Orientation/consciousness: patient oriented x3 <JAYLA Sands Last Filed: 08/04/22 08:20> Resp: Effort & Inspection: normal respiratory effort <Marilyn Zepeda PA-C - Last Filed: 08/04/22 08:20> GI: Inspection: No distended and Yes incision (clean) <Marilyn Zepeda PA-C - Last Filed: 08/04/22 08:20> Palpation (GI): Soft to palpation, nontender, no guarding and not rigid <JAYLA Sands Last Filed: 08/04/22 08:20> Skin: General skin exam: no rashes or lesions noted <JAYLA Sands Last Filed: 08/04/22 08:20> Neuro: General: patient oriented x3 <JAYLA Sands Last Filed : 08/04/22 08:20> Objective Data Active Medications Acetaminophen (Acetaminophen 325 Mg Tablet) 650 mg PO Q6H PRN PRN Reason: Pain, Mild (Pain Scale 1-3) Last Admin: 08/03/22 21:05 Dose: 650 mg Documented By: GAL Heparin Sodium (Porcine) (Heparin Sodium,Porcine 5,000 Unit/Ml Vial) 5,000 unit SUBCUT Q12H [facility] Last Admin: 08/03/22 21:05 Dose: 5,000 unit Documented By: GAL Lorazepam (Lorazepam 0.5 Mg Tablet) 0.5 mg PO BID PRN PRN Reason: Anxiety Last Admin: 08/03/22 21:05 Dose: 0.5 mg Documented By: GAL Magnesium Oxide (Magnesium Oxide 400 Mg Tablet) 400 mg PO DAILY [facility] Last Admin: 08/03/22 08:50 Dose: 400 mg Documented By: FELIX Melatonin (Melatonin 3 Mg Tablet) 6 mg PO BEDTIME PRN PRN Reason: Insomnia Morphine Sulfate (Morphine Sulfate 4 Mg/Ml Cartridge) 4 mg IVPUSH Q4H PRN; Protocol PRN Reason: Pain, Severe (Pain Scale 7-10) Patient Own ( Everolimus ( Antineoplastic) 10 Mg Tablet) 10 mg PO BEDTIME [facility] Last Admin: 08/03/22 21:05 Dose: 10 mg Documented By: GAL Omeprazole (Omeprazole 20 Mg Capsule.Dr) 20 mg PO DAILY [facility] Last Admin: 08/03/22 08:50 Dose: 20 mg Documented By: FELIX Ondansetron HCl (Ondansetron Hcl 4 Mg/2 Ml Vial) 4 mg IVPUSH Q8H PRN PRN Reason: Nausea and Vomiting Oxycodone HCl (Oxycodone Hcl Immed Release 5 Mg Tablet) 5 mg PO Q4H PRN PRN Reason: Pain, Moderate (Pain Scale 4-6 Sodium Chloride (0.9 % Sodium Chloride Flush 3 Ml Syringe) 3 ml IVFLUSH QSHIFT [facility] Last Admin: 08/03/22 21:06 Dose: 3 ml Documented By: GAL Tamoxifen Citrate (Tamoxifen Citrate 10 Mg Tablet) 20 mg PO BEDTIME [facility] Last Admin: 08/03/22 21:05 Dose: 20 mg Documented By: GAL Valsartan (Valsartan 80 Mg Tablet) 80 mg PO DAILY [facility] Last Admin: 08/03/22 08:50 Dose: 80 mg Documented By: FELIX Valsartan (Valsartan 40 Mg Tablet) 40 mg PO BEDTIME [facility] Last Admin: 08/03/22 21:05 Dose: 40 mg Documented By: GAL <Marilyn Zepeda PA-C - Last Filed: 08/04/22 08:20> Labs CBC & Chem 7: 08/03/22 06:04 08/01/22 05:42 <Marilyn Zepeda PA-C - Last Filed: 08/04/22 08:20> Procedures Date of Service Date of Service: 08/04/22 <Marilyn Zepeda PA-C - Last Filed: 08/04/22 08:20> Progress Note: A&P Assessment and plan (1) Colon cancer: Status: Acute <Marilyn Zepeda PA-C - Last Filed: 08/04/22 08:20> Assessment and Plan: continues to feel well good PO intake good flatus and BMs abd soft looks well ok to [place] home seen and examined independently <Filemon Urrutia MD - Last Filed: 08/04/22 09:47> (2) Status post laparoscopic-assisted sigmoidectomy: Status: Acute <Marilyn Zepeda PA-C - Last Filed: 08/04/22 08:20> Assessment and Plan: 71 year old female POD #4 s/p Hand assisted laparoscopic sigmoid resection with intraop flexible sigmoidoscopy. Doing well post op. Tolerating solid diet with good GI function. Abd is benign with clean incision. Stable for discharge to home today. F/u in [address] Urrutia. <Marilyn Zepeda PA-C - Last Filed: 08/04/22 08:20> Time Spent With Patient Time: Total time managing care of this patient today ____ minutes. <Marilyn Zepeda PA-C - Last Filed: 08/04/22 08:20> Quality Stroke Does the patient have a stroke diagnosis?: No <JAYLA Sands Last Filed: 08/04/22 08:20> VTE Prior VTE?: No <Marilyn Zepeda PA-C - Last Filed: 08/04/22 08:20> VTE Risk Level:: Surgical - high <JAYLA Sands Last Filed: 08/04/22 08:20> VTE Device Contraindication: N/A - Device Ordered <JAYLA Sands Last Filed: 08/04/22 08:20> VTE Drug Contraindication: N/A - Med Ordered <JAYLA Sands Last Filed: 08/04/22 08:20>
--- NOTE | 2022-08-04 08:56 | MHC.CM.PN ---
PLAN IS HOME TODAY- SELF CARE WITH OUTPATIENT ONCOLOGY FOLLOW UP RN AWARE OF PLAN. FAMILY TO TRANSPORT IMM 5/2 IN CHART
--- NOTE | 2022-08-04 10:11 | PM.DS ---
DS: Providers Provider Date of Service: 08/04/22 Date of admission: 07/31/22 11:52 Date of discharge: 08/04/22 Primary care physician: Marah Crews MD Attending physician on admission: Filemon Urrutia DS: Diagnosis Discharge Diagnosis (1) Colon cancer: Status: Acute (2) Status post laparoscopic-assisted sigmoidectomy: Status: Acute DS: Summary Hospital Course Hospital Course: BRIEF HPI: Patient is 71-year-old female what undergone a colonoscopy in May 2022 with a large polyp removed.? This turned out to be adenocarcinoma and the margins extended past the stalk.?The results were discussed with drilling supervisor who did the endoscopy, Dr. Pennington, who stated that the lesion was around the level of 20 cm.? It was recommended to proceed with hand assisted laparoscopic sigmoid resection to completely remove this adenocarcinoma with possible ileostomy. A flexible sigmoidoscopy was performed the previous day to evaluate the area.? There were no lesions seen although there seemed to be some fibrotic changes of the mucosa that resembled a scar at level 30 cm which was marked with Endo ink. She now presents for planned sigmoid resection. HOSPITAL COURSE: On 07/31/22, a hand assisted laparoscopic sigmoid resection with intraoperative flexible sigmoidoscopy was performed by Dr. Urrutia without complication. The patient tolerated the procedure well and was admitted to the medical/surgical floor for observation. She had an uncomplicated recovery course. She had only mild incisional pain post operatively which was well controlled with ofirmev. Her baker was removed on POD #1. She was ambulated. She began passing flatus and then had a BM on POD #2. Her bowel movements were initially bloody but this resolved. She was tolerating clear liquids without nausea or vomiting and was advanced to a solid diet. Her H/H drifted down post operatively and this was trended. It remained stable and trended up. On the day of discharge, she was tolerating a solid diet, had mild incisional pain controlled on PO tylenol, and her abdomen was benign with clean incisions. She felt ready for discharge and was discharged to home on 08/04/22 in stable condition. She is to follow up with Dr. Urrutia in office in 2 weeks. Status at Discharge Functional status at discharge: independent ambulation Overall status at discharge: patient is progressing back to baseline Time Spent with Patient Time attestation: Total time managing care of this patient today ____ minutes. Discharge coordination time: Less than 30 minutes Quality: Safe Use of Opioids Does Pt have an Active Cancer Diagnosis on the Problem List?: Yes Opioid Measure Date for [facility] Report: 07/05/22 Opioid Measure Time for [facility] Report: 12:45 Quality: Stroke Does the patient have a stroke diagnosis?: No Physical Exam Vital Signs: Vital Signs: Last Vital Signs Temp 98 F 08/04/22 08:00 Pulse 90 08/04/22 07:38 Resp 16 08/04/22 07:38 BP 149/70 H 08/04/22 07:38 Pulse Ox 96 08/04/22 07:38 O2 Del Method Room Air 08/04/22 07:38 O2 Flow Rate 2 07/31/22 12:45 BMI result Body Mass Index 22.3 Const: General: comfortable, no acute distress and alert Orientation/consciousness: patient oriented x3 Resp: Effort & Inspection: normal respiratory effort Cardio: Rate: regular rate GI: Inspection: No distended and Yes incision (clean, josh intact) Palpation (GI): Soft to palpation, Tenderness to palpation present (GI) (very minimal incisional), no guarding and not rigid Skin: General skin exam: no rashes or lesions noted Neuro: General: patient oriented x3 and moves all extremities DS: Data Data Completed and Pending Pending studies at discharge: Pending at discharge 07/31/22 11:00 Surgical [PTH] Routine Discharge Plan Discharge Anticipated Discharge Date/Time: 08/04/22 08:00 Patient Disposition: Home, Self-Care Discharge Diagnosis: colon cancer Referrals: Marah Crews MD [Primary Care Provider] - 1 Week Filemon Urrutia MD [Physician] - 2 Weeks Discharge Medications: New docusate sodium [Colace] 100 mg capsule 100 mg PO DAILY Qty: 30 2RF Continued B12 2.4 mcg PO DAILY omeprazole 20 mg Capsule,Delayed Release(Dr/Ec) 20 mg PO DAILY folic acid 400 mcg PO DAILY magnesium 300 mg PO DAILY irbesartan 150 mg Tablet 150 mg PO QAM calcium carbonate-vitamin D3 500 mg-3.125 mcg (125 unit) Tablet 1 tab PO DAILY Xgeva 120 mg/1.7 mL (70 mg/mL) Solution 120 mg SUBCUT [id number] irbesartan 75 mg Tablet 75 mg PO BEDTIME lorazepam 0.5 mg tablet 0.5 mg PO BID PRN (Reason: Anxiety) acetaminophen 500 mg Tablet 500 mg PO Q6H PRN (Reason: Pain) tamoxifen 20 mg tablet 20 mg PO BEDTIME everolimus (antineoplastic) 10 mg tablet 10 mg PO BEDTIME Discharge Orders: Discharge Order (Routine); Ordered 08/04/22 Ordered By: Marilyn Zepeda Diet: low residue diet Activity on Discharge: No heavy lifting Stand Alone Forms: Patient Portal Discharge page Activity Restrictions/Additional Instructions: If the incision area is tender, you may apply an ice pack for short intervals (No more than 20 minutes on, followed by at least 20 minutes off). Do not apply heat. Do not use creams, lotions, or topical antibiotics. These can cause infection or allergic reaction. Ok to shower. You have josh closing your incision and these will be removed approximately 10-14 days after surgery. NO HEAVY LIFTING (>10lbs) or strenuous activity. Follow up in office. ([phone]) Call Your Doctor If: -Your temperature exceeds 101.5? F -You experience excessive pain or swelling -You have an unexpected reaction to medication -You have excessive bleeding -You experience continued vomiting/nausea -Your incision begins to separate -Your incision shows signs of infection such as increased redness, swelling, excessive pain, drainage (light blood or clear fluid is normal) or heat Care Plan Goals: pain management continue treatment for breast cancer and colon cancer Health Concerns: breast cancer metastatic colon cancer Plan of Treatment: follow-up in the office continue follow-up with oncologist pain medications Assessment: doing very well postop Discharge Date/Time: 08/04/22 10:55
[2022-08-04] MEDS: Valsartan 80 MG TABLET PO (10:41)
[2022-08-04] MEDS: Omeprazole 20 MG CAPSULE.DR PO (10:41)
[2022-08-04] MEDS: Magnesium Oxide 400 MG TABLET PO (10:41)
== END 2022-08-04 10:55 | disposition home or self-care (01) | DRG 331 ==
LOC: HO.SSSA 11:56 → HO.S3 12:18
PROVIDERS: Nurse Practitioner; Physician Assistant Surgical; Surgery; Admitting Provider Surgery; PCP Internal Medicine; Visit Provider Surgery
PROC: 0DTE0ZZ Resection of Large Intestine, Open Approach (ICD-10-PCS; principal; 2022-07-31 08:30)
DX: C18.7 Malignant neoplasm of sigmoid colon (principal); K21.9 Gastro-esophageal reflux disease without esophagitis; I10 Essential (primary) hypertension; C50.911 Malignant neoplasm of unspecified site of right female breast; Z90.11 Acquired absence of right breast and nipple; Z92.21 Personal history of antineoplastic chemotherapy; Z92.3 Personal history of irradiation; Z79.810 Long term (current) use of selective estrogen receptor modulators (SERMs); Z79.899 Other long term (current) drug therapy
CPT/HCPCS: 36415; 80048; 85014; 85018; 85025; 85027; 86850; 86900; 86901; 88305; 88309; 93005; C1758; J0131; J1100; J1170; J1643; J2250; J2405; J2795; J3010

== ENCOUNTER → 2022-08-13 13:45 | Outpatient (BNVA) | payer MEDICARE, OTHER, SELFPAY | PROVIDERS: PCP Internal Medicine; Visit Provider Surgery | DX: Z48.815 Encounter for surgical aftercare following surgery on the digestive system (principal); C18.9 Malignant neoplasm of colon, unspecified; I89.0 Lymphedema, not elsewhere classified | CPT/HCPCS: 99212 ==

== ENCOUNTER → 2022-09-14 11:17 | Outpatient (BNVA) | payer MEDICARE, OTHER, SELFPAY | PROVIDERS: PCP Internal Medicine; Visit Provider Surgery | DX: Z48.3 Aftercare following surgery for neoplasm (principal); C18.9 Malignant neoplasm of colon, unspecified | CPT/HCPCS: 99212 ==

== ENCOUNTER 2023-01-08 10:19 | Outpatient (REF) | payer MEDICARE, OTHER, SELFPAY | END 2023-01-08 10:20 | disposition home or self-care (01) | LOC: HO.MRI 10:19 | PROVIDERS: PCP Internal Medicine; Visit Provider Internal Medicine Medical Oncology | DX: C78.7 Secondary malignant neoplasm of liver and intrahepatic bile duct (principal); R05.9 Cough, unspecified | CPT/HCPCS: 71046; 74183; A9585 ==

== ENCOUNTER 2023-01-12 11:48 | Outpatient (REF) | payer MEDICARE, OTHER, SELFPAY ==
--- NOTE | ~2023-01-12 | PE_ITS ---
EXAMINATION: Fluorine-18 FDG PET/CT Scan CLINICAL INDICATION: Subsequent treatment management. Metastatic breast cancer. PROCEDURE: 60 minutes following the intravenous administration of 17.5 mCi of fluorine 18 FDG, images from the base of the skull to the mid thighs were obtained using a combined PET/CT scanner with CT scan based attenuation correction. No intravenous contrast was administered. Transverse, coronal, sagittal, and volume reconstruction projections were obtained. The patient's blood glucose as determined by a finger stick, was 93 mg/dl immediately prior to injection. The radiotracer was injected intravenously through the left hand superficial vein, without any complications. Total CT exam dose-length product 487.26 mGy-cm * These CT images were obtained using dose optimization techniques as appropriate, variously including the following: Automated exposure control * Adjustment of mA and/or kV according to patient size (this includes techniques or standardized protocols for targeted exams where dose is matched to indication/reason for exam; i.e. extremities or head) * Use of iterative reconstruction technique COMPARISON: Most recent prior PET CT study done on 03/12/2020. FINDINGS: SUV max REFERENCE: Blood: 2.3; previously 3.7 03/12/2020 Liver: 2.3; previously 3.0 03/12/2020. NECK AND VISUALIZED HEAD: No tracer avid disease, unchanged. THORAX: Interval development of moderate to large bilateral non-tracer avid pleural effusions and associated collapse consolidation. Interval development of mild pulmonary venous congestion and peribronchiolar micronodules nodularity is also noted bilaterally. Nonspecific mild tracer avidity is noted within the collapsed consolidated part of the left lower lobe with SUV max of 2.3 (144/223). Interval development of mild tracer avidity is noted at bilateral perihilar region with mild SUV avidity (SUV max of 2.7 at right perihilar region (157/223). Nonspecific mild tracer avidity is noted in the region of the right subclavian vessels, appears somewhat more pronounced since the prior study, of indeterminate etiology. Targeted Doppler ultrasound of the subclavian vessels may be considered for further clarification, if clinically appropriate. Note is made of right-sided mastectomy and no discrete focal lesion within the left breast. ABDOMEN AND PELVIS: Interval development of moderately intense tracer avid 2 discrete focal liver lesions are present within the left lobe with SUV max of 5.8 (111/223) and 4.8 (110/223), highly suspicious for metastatic disease. No tracer avid splenic or adrenal disease. The left kidney is unremarkable. The right kidney is somewhat heterogeneously enlarged, shows lack of radiotracer excretion into the pelvicalyceal system. This is nonspecific, may represent changes secondary to partial obstruction versus infection or inflammation and less likely to be neoplastic involvement. Diagnostic renal ultrasound is recommended for further clarification. There are no tracer avid retroperitoneal, mesenteric or pelvic lymphadenopathy. The bowel loops are decompressed. There is generalized fluid retention present throughout the entire visualized body, most consistent with anasarca. MUSCULOSKELETAL: Interval development of focal area of sclerosis and tracer avidity with SUV max of 3.3 involving T2 vertebral body to the right of the midline (182/223), highly suspicious for osseous metastasis. Interval development of 5 mm focal area of sclerosis with subtle radiotracer avidity is also noted at T5 vertebral body to the left of the midline (162/223), focal area of sclerosis involving right site of T7 vertebral body with tracer avidity with SUV max of 3.1 (149/223), focal area of sclerosis with minimal tracer avidity at posterior central part of T9 vertebral body (134/223), and the right posterior lamina of T12 vertebral body associated with increased tracer avidity with SUV max of 2.8 (119/223). Moderately intense tracer avid disease associated with sclerosis is also noted at S3-S4 with SUV max of 3.1 (51/223). All these site of abnormal radiotracer activity is appear new or progressed the prior study and are highly suspicious for osseous metastatic disease. VASCULAR: No significant calcific atherosclerotic disease of the aorta and is branches. THE SITE(S) OF MOST INTENSE FDG AVIDITY AND SUV MAX: 2 new focal liver lesion with SUV max of 5.8 and 4.8 respectively, highly suspicious for metastatic disease. PET/PET CT fusion skull to thigh IMPRESSION: 1. Abnormal study showing features highly suggestive of interval development of tracer avid 2 sites of metastatic disease to the left lobe of the liver with SUV max of 5.8 and 4.8 respectively, new since prior study dated 03/12/2020. 2. Interval development of multifocal tracer avid osseous disease, also suspicious for osseous metastasis. 3. Interval development of linear tracer avidity is noted involving the right subclavian vessels, for which targeted Doppler study to evaluate both the right subclavian artery and vein is recommended for further clarification. 4. Interval development of moderate to large non-tracer avid bilateral pleural effusions and mild tracer avid compressive atelectasis involving left lower lobe of the lung. 5. Interval development of mild tracer avid right and left perihilar lymph nodes. 6. The right kidney appears heterogeneous with cortical radiotracer activity and no evidence of any tracer excretion into the pelvicalyceal system, appearance is nonspecific, may represent superimposed infection, inflammation and/or developing obstruction or combination thereof. A follow-up targeted renal ultrasound is recommended for further full detail evaluation.
== END 2023-01-12 11:49 | disposition home or self-care (01) ==
LOC: HO.PET 11:48
PROVIDERS: PCP Internal Medicine; Visit Provider Internal Medicine Medical Oncology
DX: Z13.89 Encounter for screening for other disorder (principal)

== ENCOUNTER 2023-02-11 13:50 | Outpatient (REF) | payer MEDICARE, OTHER, SELFPAY ==
--- NOTE | ~2023-02-11 | US_ITS ---
EXAMINATION: Ultrasound of right kidney only CLINICAL INFORMATION: Abnormal uptake seen in the right kidney on a prior PET/CT study of January 12, 2023. COMPARISON: PET/CT study January 12, 2023. MR abdomen January 08, 2023. CT abdomen and pelvis June 15, 2022 TECHNIQUE: Grayscale and color Doppler exam of the right kidney and bladder FINDINGS: Right kidney: Normal size contour and echogenicity. Normal cortical thickness. There is no mass. No calculus or hydronephrosis. Trace fluid in Morison's pouch. Right kidney measures 11.4 x 4.4 x 4.9 cm. Bladder: Bladder is filled. No bladder mass or calculus. Bilateral ureteral jets are present. US/US renal RT IMPRESSION: Normal ultrasound of the right kidney.
--- NOTE | ~2023-02-11 | US_ITS ---
EXAMINATION: US VENOUS WITH DOPPLER UPPER EXTREMITY, RIGHT CLINICAL INFORMATION: Abnormal PET/CT finding in the right subclavian COMPARISON: PET/CT 01/12/2023: Nonspecific mild tracer avidity is noted in the region of the right subclavian vessels, appears somewhat more pronounced since the prior study, of indeterminate etiology. Targeted Doppler ultrasound of the subclavian vessels may be considered for further clarification, if clinically appropriate TECHNIQUE: Ultrasound of the upper extremity is performed using compression sonography and color and pulse Doppler flow with assessment of augmentation of flow. There is also imaging and Doppler assessment of the jugular and subclavian veins. Spectral analysis with color-flow imaging is performed. FINDINGS: The study appears normal with the exception of the subclavian vein. Respiratory variation, normal compression, and augmented flow are noted throughout the upper extremity including the axillary, brachial, cubital, and radial and ulnar veins. There is normal flow in the internal jugular veins. The subclavian vein appears narrowed with the lumen as small as 3 mm. Around the subclavian vein, there are hypoechoic lobular structures which I suspect may be abnormal lymph nodes or masses rather than an aneurysm of the subclavian vein itself. There is no visible deep or superficial thrombophlebitis. 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 MRI of the neck and upper chest along with MRA/MRV of the neck and upper chest is recommended for further evaluation.
== END 2023-02-11 13:51 | disposition home or self-care (01) ==
LOC: HO.HMGCX 13:50
PROVIDERS: PCP Internal Medicine; Visit Provider Internal Medicine Medical Oncology
DX: I82.401 Acute embolism and thrombosis of unspecified deep veins of right lower extremity (principal); R39.9 Unspecified symptoms and signs involving the genitourinary system
CPT/HCPCS: 76775; 93971

== ENCOUNTER 2023-02-12 08:37 | Day surgery (SDC) | payer MEDICARE, OTHER, SELFPAY ==
--- NOTE | ~2023-02-12 | XR_ITS ---
EXAMINATION: XR CHEST CLINICAL INFORMATION: Follow-up left thoracentesis. COMPARISON: Earlier same day. TECHNIQUE: Frontal view of the chest was obtained. FINDINGS: There is no definite pneumothorax on the left. There is an abnormal opacity abutting the left hilum. Left pleural fluid has significantly decreased in volume. There is a right pleural effusion with underlying parenchymal atelectasis/consolidation. The cardiac, hilar, and mediastinal contours are otherwise normal. The right heart border is obscured. There is radiopaque callus involving left ninth and 10th ribs from recent fractures. No additional bony abnormality. XR/XR chest 1V IMPRESSION: No evidence of left pneumothorax status post left thoracentesis. Stable opacity abutting the left hilum. Right-sided pleural effusion with basilar consolidation/atelectasis. Subacute rib fractures left ninth and 10th ribs.
--- NOTE | ~2023-02-12 | US_ITS ---
ULTRASOUND GUIDED LEFT THORACENTESIS HISTORY: Breast cancer. Left pleural effusion Risks and benefits and possible complications were discussed with the patient and consent form was signed. A preliminary ultrasound of the left chest demonstrated a large left pleural effusion. A safe intercostal space demonstrating left pleural fluid was identified using ultrasound guidance, and the overlying skin marked, prepped and draped in sterile fashion. 1% lidocaine was used to anesthetize the skin, subcutaneous tissues, and parietal pleura. Using ultrasound guidance, a 5 fr catheter was placed into the left pleural space. 825 ml of yellow fluid was removed passively. The catheter was then removed. A dry occlusive dressing was applied to the left back. Subsequent post procedure chest x-rays demonstrated no pneumothorax. These will be dictated separately. The procedure was performed by Alireza Peña PA-C and supervised by Dr. Guaman. US/US thoracentesis IMPRESSION: Ultrasound-guided left thoracentesis as described above. No immediate complications
--- NOTE | ~2023-02-12 | XR_ITS ---
EXAMINATION: XR CHEST CLINICAL INFORMATION: Status post left thoracentesis. COMPARISON: 07/10/2014. 01/08/2023. TECHNIQUE: Frontal view of the chest was obtained. FINDINGS: There is a questionable left apical pneumothorax measuring approximately 1.4 cm. This is not definitive. Recommend follow-up radiograph. There is an abnormal opacity abutting the left hilum. Left pleural effusion appears significantly decreased. There is a right pleural effusion with underlying parenchymal atelectasis/consolidation. Lung markings are increased bilaterally and somewhat hazy suggesting possible underlying CHF. The cardiac, hilar, and mediastinal contours are otherwise normal. The right heart border is obscured. There is radiopaque callus involving left ninth and 10th ribs from recent fractures. No additional bony abnormality. XR/XR chest 1V IMPRESSION: There is a questionable left apical pneumothorax measuring approximately 1.4 cm. This is not definitive. Recommend follow-up radiograph. Probable CHF. Bilateral pleural effusions with underlying parenchymal consolidation/atelectasis. Subacute fractures anterior left 9th and 10th ribs.
[2023-02-12 10:02] LABS: INTERNATIONAL NORM RATIO 0.8 (0.9-1.1); Prothrombin Time 10.1 SEC (11.1-13.3)
[2023-02-12 10:04] LABS: Partial Thromboplastin Time 29.2 SEC (26.0-36.4)
[2023-02-12 10:50] VITALS: BP 155/85; PULSE 86; RESP 18; TEMP 37.1; O2SAT 96
[2023-02-12] MEDS: Lidocaine HCl 1 % MPF 5 ML VIAL SUBCUT (11:00)
[2023-02-12 11:20] VITALS: BP 143/88; PULSE 83; RESP 16; O2SAT 94
[2023-02-12 12:09] VITALS: BP 146/87; PULSE 89; RESP 18; TEMP 36.1; O2SAT 95
== END 2023-02-12 12:42 | disposition home or self-care (01) ==
PROVIDERS: Physician Assistant Surgical; PCP Internal Medicine; Visit Provider Internal Medicine Medical Oncology
DX: J90 Pleural effusion, not elsewhere classified (principal); C78.7 Secondary malignant neoplasm of liver and intrahepatic bile duct; C79.51 Secondary malignant neoplasm of bone; C18.9 Malignant neoplasm of colon, unspecified; Z85.3 Personal history of malignant neoplasm of breast; Z92.21 Personal history of antineoplastic chemotherapy; Z92.3 Personal history of irradiation; Z90.11 Acquired absence of right breast and nipple; Z79.899 Other long term (current) drug therapy
CPT/HCPCS: 32555; 36415; 71045; 85610; 85730; 93306; 99202

== ENCOUNTER → 2023-02-12 09:12 | Outpatient (BNV) | payer MEDICARE, OTHER, SELFPAY | PROVIDERS: PCP Internal Medicine; Visit Provider Radiology Diagnostic Radiology | DX: J90 Pleural effusion, not elsewhere classified (principal) | CPT/HCPCS: 32555 ==

== ENCOUNTER 2023-02-12 12:52 | Outpatient (AMB) | payer MEDICARE, OTHER, SELFPAY ==
[2023-02-12 12:53] VITALS: BP 116/62; PULSE 102; BMI 22.6
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
== END 2023-02-12 13:58 | disposition home or self-care (01) ==
PROVIDERS: PCP Internal Medicine; Visit Provider Internal Medicine
DX: J90 Pleural effusion, not elsewhere classified (principal); R06.02 Shortness of breath; I34.0 Nonrheumatic mitral (valve) insufficiency; I36.1 Nonrheumatic tricuspid (valve) insufficiency
CPT/HCPCS: 93306; 99203

== ENCOUNTER → 2023-02-12 13:51 | Outpatient (REF) | payer MEDICARE, OTHER, SELFPAY ==
--- NOTE | 2023-02-12 13:56 | CA_ITS ---
Transthoracic Echocardiogram Patient (Last, First, Middle): Dotty Villela, Gender: Female Date of : 1950 Age: 72 Procedure Date: 02/12/2023 Procedure Type: Transthoracic Echocardiogram Location: OP Height: 165.1 cm Weight: 62. kg BSA: 1.68 m2 Heart Rate: bpm BP: 118 / 56 mmHg Clinical Resource Director: Referring MD: Dale Islas MD Curriculum Writer: Braulio Walker MD Symptoms: R06.02 - Shortness of breath Study Quality: Adequate ECG Rhythm: Sinus with extra beats Conclusions: - 1. Low normal LV ejection fraction 50-55% with impaired relaxation filling pattern 2. Mild mitral regurgitation 3. Normal RV systolic pressure 4. Trivial pericardial effusion Findings Left Ventricle Normal left ventricular cavity size. There is normal left ventricular wall thickness. The left ventricular systolic function is low normal. The visually estimated ejection fraction is between 50-55%. Spectral Doppler is indicative of an impaired relaxation filling pattern. E/E prime ratio is between 8 and 15 consistent with indeterminate filling pressures. Right Ventricle Normal right ventricular cavity size and systolic function. Atria The left atrium is normal in size. There is no evidence of interatrial shunt. The right atrium is normal in size. Aortic Valve Normal aortic valve structure and function. There is no aortic valve stenosis. There is no aortic valve regurgitation. Mitral Valve There is mild anterior and posterior mitral leaflet thickening. There is mild mitral valve regurgitation. There is no mitral valve stenosis. Pulmonic Valve The pulmonic valve is likely normal. There is trace pulmonic valve regurgitation. Tricuspid Valve Normal tricuspid valve structure. There is mild tricuspid valve regurgitation. The right ventricular systolic pressure is normal. The right ventricular systolic pressure is 32 mmHg. Normal right atrial pressure. There is no evidence of pulmonary hypertension. Great Vessels All visible segments of the aorta are normal in size. The pulmonary artery was not well visualized. There is no dilatation of the ascending aorta. Venous The inferior vena cava is normal in size and collapses greater than 50% with inspiration. Pericardium/Pleural There is a trivial loculated pericardial effusion overlying the left ventricle. There is a left sided pleural effusion. Measurements 2D Linear Measurements IVSd: 1.08 0.6-0.9/0.6-1.0 cm LVIDd: 4.73 3.9-5.3/4.2-5.9 cm LVIDd Index: 2.82 2.4-3.2/2.2-3.1 cm/m2 LVIDs: 3.48 2.0-3.6 cm LVPWd: 1.10 0.7-1.1 cm Ao Root: 2.70 2.1-3.5 cm LA Diam: 3.40 2.7-3.8/3.0-4.0 cm LAIDs Index: 2.02 1.5-2.3 cm/m2 LV Mass: 233.08 67-162/88-224 g LV Mass Index: 138.74 43-95/49-115 g/m2 LVOT Diam: 2.10 3.0+(-)1.3 cm Mitral Valve MV Pk E: 0.58 MV PK A: 0.89 MV Decel Time: 147.00 E/A: 0.70 E'Lateral: 4.13 E'Medial: 5.66 E/E' Med: 10.30 E/E' Lat: 14.10 PHT: 43.00 MVA PHT: 5.12 Decel [place]: 3.97 Aortic Valve AoV Pk Pancho: 1.20 AoV Mn Pancho: 0.79 AoV VTI: 0.26 AoV Pk Grad: 6.00 Aov Mn Grad: 3.00 AMADOU Cont.VTI: 2.26 LVOT LVOT Pk Pancho: 0.76 LVOT Mn Pancho: 0.51 LVOT VTI: 0.17 LVOT Pk Grad: 2.00 LVOT Mn Grad: 1.00 LVOT Diam: 2.10 LVOT Area: 3.46 Diastolic Function MV Pk E: 0.58 MV Pk A: 0.89 E/A: 0.70 E'Medial: 5.66 E/E' Med: 10.30 E' Laterial: 4.13 E/E' Lat: 14.10 Right Ventricle TAPSE (mm): 31.00 TVS' Pancho: 13.00 Tricuspid Valve TR Pk Pancho: 2.67 TR Pk Grad: 29.00 RA Press: 3.00 RVSP: 32.00 Great Vessels Aorta Ao Root-2D: 2.70 2.0-3.7 cm Ao Asc: 3.40 2.1-3.4 cm Pulmonary Valve PV Pk Pancho: 1.10 Peak PV Grad: 5.00 Updated in Other Vendor System with Status of Final Braulio Walker MD electronically signed on 02/12/2023 5:44:59 PM with status of Final
== END ==
LOC: HO.CARD 13:51
PROVIDERS: PCP Internal Medicine; Visit Provider Internal Medicine
DX: R06.02 Shortness of breath (principal)
CPT/HCPCS: 32555; 36415; 71045; 85610; 85730; 93306

== ENCOUNTER 2023-03-04 14:37 | Outpatient (REF) | payer MEDICARE, OTHER, SELFPAY ==
--- NOTE | ~2023-03-04 | XR_ITS ---
EXAMINATION: XR CHEST CLINICAL INFORMATION: Follow up pleural effusion, history of breast cancer. COMPARISON: Chest radiograph 02/12/2023. TECHNIQUE: 2 views of the chest were obtained. FINDINGS: Increased small bilateral pleural effusions as well as increased bibasilar airspace opacities compared to 02/12/2023. Overall similar degree of diffuse interstitial prominence. No pneumothorax. Cardiomediastinal silhouette is grossly unchanged. No displaced osseous fractures. Refer to recent PET/CT from 01/12/2023 for better characterization of findings suspicious for metastatic osseous disease. Visualized upper abdomen is within normal limits. XR/XR chest 2V IMPRESSION: Increased small bilateral pleural effusions and bibasilar airspace opacities compared to 02/12/2023. The report will be called to the ordering clinician by a [facility]er.
== END 2023-03-04 14:38 | disposition home or self-care (01) ==
LOC: HO.XRAY 14:37
PROVIDERS: Visit Provider Internal Medicine Medical Oncology
DX: J90 Pleural effusion, not elsewhere classified (principal)
CPT/HCPCS: 71046

== ENCOUNTER 2023-03-08 11:27 | Outpatient (AMB) | payer MEDICARE, OTHER, SELFPAY ==
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
[2023-03-08 11:28] VITALS: BP 147/70; PULSE 92; BMI 22.1
== END 2023-03-08 12:12 | disposition home or self-care (01) ==
PROVIDERS: PCP Internal Medicine; Visit Provider Surgery
DX: Z85.038 Personal history of other malignant neoplasm of large intestine (principal)
CPT/HCPCS: 99213

== ENCOUNTER → 2023-03-08 11:27 | Outpatient (BNVA) | payer MEDICARE, OTHER, SELFPAY | PROVIDERS: PCP Internal Medicine; Visit Provider Surgery | DX: Z85.038 Personal history of other malignant neoplasm of large intestine (principal) | CPT/HCPCS: 99212 ==

== ENCOUNTER 2023-03-18 09:00 | Day surgery (SDC) | payer MEDICARE, OTHER, SELFPAY ==
--- NOTE | ~2023-03-18 | US_ITS ---
PROCEDURE: Ultrasound-guided left thoracentesis History: Left pleural effusion Specimen: A sample of pleural fluid was sent for analysis Access: 5 Citizen Of [place] Yueh catheter Medications: 10 mL 1% lidocaine TECHNIQUE/FINDINGS Appropriate preprocedural clinical history and imaging studies were reviewed. The patient was brought to the department and placed in the seated position. Ultrasound images of the left thorax were obtained to localize a moderate pleural effusion. Permanent ultrasound images were saved. Risks and benefits and possible complications were discussed with the patient and consent form was signed. An area of the patient's left back was prepped and draped in usual sterile fashion. 10 mL of 1% lidocaine was used to obtain local anesthesia of the skin and deeper tissues. A standard small bowel needle was introduced to sample pleural fluid and demonstrate a safe access route. A 5 [place] Yueh catheter was then used to access the pleural cavity. 800 ml of yellow fluid was removed passively. The catheter was then removed. A dressing was applied. A postprocedure chest x-ray will be performed and will be dictated separately. There were no immediate complications. The procedure was performed by Alireza Peña PA-C and supervised by Dr. Guaman US/US thoracentesis Impression: Ultrasound-guided left thoracentesis
--- NOTE | ~2023-03-18 | XR_ITS ---
EXAMINATION: XR CHEST CLINICAL INFORMATION: Status post left thoracentesis. COMPARISON: Most recent chest radiograph dated 03/04/2023. TECHNIQUE: Frontal view of the chest was obtained. FINDINGS: Trace ascites pleural effusion, decreased when compared to the prior examination. Small right-sided pleural effusion, unchanged. Bibasilar opacities are redemonstrated which could represent atelectasis versus early infiltrates. No pneumothorax. Stable cardiomediastinal silhouette. XR/XR chest 1V IMPRESSION: 1. Trace left-sided pleural effusion, decreased when compared to the prior examination. Small right-sided pleural effusion, unchanged. 2. Bibasilar atelectasis versus early infiltrates, unchanged.
[2023-03-18 09:15] VITALS: BMI 23.4
[2023-03-18 11:05] VITALS: BP 155/87; PULSE 79; RESP 15; TEMP 36.8; O2SAT 96
[2023-03-18 11:20] VITALS: BP 158/84; PULSE 89; RESP 18; O2SAT 95
[2023-03-18] MEDS: Lidocaine HCl 1 % MPF 5 ML VIAL SUBCUT (11:23)
== END 2023-03-18 11:34 | disposition home or self-care (01) ==
PROVIDERS: Radiology Vascular & Interventional Radiology; PCP Internal Medicine; Visit Provider Internal Medicine Medical Oncology
DX: J90 Pleural effusion, not elsewhere classified (principal); C50.919 Malignant neoplasm of unspecified site of unspecified female breast; C78.7 Secondary malignant neoplasm of liver and intrahepatic bile duct; C79.51 Secondary malignant neoplasm of bone; Z17.0 Estrogen receptor positive status [ER+]; Z92.3 Personal history of irradiation; Z92.21 Personal history of antineoplastic chemotherapy; I89.0 Lymphedema, not elsewhere classified; I10 Essential (primary) hypertension; Z79.810 Long term (current) use of selective estrogen receptor modulators (SERMs); Z79.899 Other long term (current) drug therapy; Z66 Do not resuscitate; Z98.890 Other specified postprocedural states
CPT/HCPCS: 32555; 71045; 88112; 88305; 88341; 88342; 88360

== ENCOUNTER → 2023-03-18 11:12 | Outpatient (BNV) | payer MEDICARE, OTHER, SELFPAY | PROVIDERS: PCP Internal Medicine; Visit Provider Radiology Diagnostic Radiology | DX: J90 Pleural effusion, not elsewhere classified (principal) | CPT/HCPCS: 32555 ==

== ENCOUNTER 2023-03-22 15:23 | Outpatient (REF) | payer MEDICARE, OTHER, SELFPAY ==
--- NOTE | ~2023-03-22 | MR_ITS ---
EXAMINATION: MR CERVICAL SPINE WITHOUT CONTRAST CLINICAL INFORMATION: Reported history of metastatic breast cancer. Radiculopathy and neck pain. Findings on prior PET/CT from 01/12/2023 suspicious for osseous metastases. Pleural effusion, status post thoracentesis. COMPARISON: PET/CT report from 01/12/2023. TECHNIQUE: Multiplanar, multisequential imaging of the cervical spine was performed without contrast. Limited study with motion artifacts. FINDINGS: VERTEBRAL BODIES AND PARASPINAL SOFT TISSUES: A sclerotic lesion in the right aspect of the T2 vertebra corresponds to a previously reported area of FDG avidity on the PET/CT study. There is a 7 mm round T1 hypointense lesion in the T1 vertebral body. A small T1/T2 hypointense focus in the anterosuperior T5 vertebral body is also noted. Severe discogenic changes evident at the C6-C7 level with a severe loss of disc height, endplate Schmorl's nodes, osteophytic spurring, and [id number] endplate edema which is presumably reactive. There are mild anterior subluxations at the C3-C4 and C4-C5 levels. Moderate facet degeneration evident on the right side at the C3-C4 level with reactive edema in the articular processes and adjacent deep right posterior paraspinal soft tissues. The paraspinal soft tissues are unremarkable. There is loss of the normal left cervical vertebral artery flow-void in the V2 through imaged V3 segments in the neck. The right cervical vertebral artery flow-void is maintained. There are partially visualized moderate pleural effusions bilaterally. CERVICOMEDULLARY JUNCTION AND VISUALIZED POSTERIOR FOSSA: The craniovertebral junction and imaged portions of the brain parenchyma appear normal. No cord signal abnormality or syrinx is seen. A small 6 x 2 mm ovoid focus of T2 bright signal along the left C7 lamina in the epidural space is nonspecific and may represent a synovial cyst. SPINAL LEVELS: C2-C3: Mild uncovertebral joint spurring on the left side with very mild left foraminal encroachment. No disc pathology or central canal stenosis. C3-C4: Mild anterolisthesis and unroofing of the disc without central canal stenosis. Moderate facet degeneration on the right side with reactive marrow and surrounding soft tissue edema. C4-C5: Mild anterolisthesis and minimal disc bulge with left-sided hypertrophic facet arthropathy. No central canal stenosis. [id number] left foraminal narrowing. C5-C6: Broad-based disc-osteophyte complex mildly distorting the right ventrolateral aspect of the cord. No central canal stenosis. Severe right foraminal narrowing. C6-C7: Severe degenerative endplate changes and loss of disc height with a shallow left paracentral disc protrusion and disc-osteophyte complex. No central canal stenosis. Moderate bilateral foraminal narrowing. C7-T1: Mild anterolisthesis and unroofing of the disc with moderate facet degeneration. Perineural cysts within the neural foramina bilaterally. No central canal stenosis. Very mild foraminal narrowing. MR/MR cervical spine wo con IMPRESSION: 1. Limited study with motion artifacts. 2. Sclerotic lesion in the right aspect of the T2 vertebra corresponding to a previously reported area of FDG avidity on the PET/CT study. Additional subcentimeter foci of hypointense signal in the T1 and T5 vertebral bodies which are indeterminate but may represent small osseous metastases. 3. Moderate facet arthropathy on the right side at the C3-C4 level with reactive marrow and surrounding soft tissue edema. Mild anterior subluxation. 4. Disc-osteophyte complex at the C5-C6 level with severe right foraminal encroachment. 5. Severe degenerative disc disease at the C6-C7 level with moderate bilateral foraminal narrowing. 6. Loss of the normal left vertebral artery flow-void in the V2 through V3 segments which may be due to slow flow or an age-indeterminate occlusion. A CT angiogram of the neck could be obtained in follow-up for further evaluation. 7. Moderate bilateral pleural effusions.
== END 2023-03-22 15:24 | disposition home or self-care (01) ==
LOC: HO.MRI 15:23
PROVIDERS: PCP Internal Medicine; Visit Provider Internal Medicine
DX: R29.898 Other symptoms and signs involving the musculoskeletal system (principal); R20.0 Anesthesia of skin
CPT/HCPCS: 72141

== ENCOUNTER 2023-05-31 15:23 | Outpatient (REF) | payer MEDICARE, OTHER, SELFPAY ==
--- NOTE | ~2023-05-31 | XR_ITS ---
EXAMINATION: XR CHEST CLINICAL INFORMATION: Pleural effusion. COMPARISON: Ultrasound thoracentesis of 03/18/2023, chest radiograph 03/18/2023 and 03/04/2023. TECHNIQUE: Two views of the chest were obtained. FINDINGS: There is no gross pneumothorax. Stable cardiomediastinal silhouette. Redemonstration of similar diffuse interstitial opacities. Bibasilar opacities redemonstrated. Redemonstration of small bilateral pleural effusions. XR/XR chest 2V IMPRESSION: 1. Redemonstration of small bilateral pleural effusions. 2. Redemonstration of similar diffuse interstitial opacities. 3. Bibasilar opacities redemonstrated. Opacities likely related to the persistent small bilateral pleural effusions and atelectasis, although infectious/inflammatory process could contribute to this appearance.
--- NOTE | ~2023-05-31 | MR_ITS ---
EXAMINATION: MR ABDOMEN WITHOUT AND WITH CONTRAST CLINICAL INFORMATION: Metastatic breast carcinoma, follow-up liver metastasis COMPARISON: MRI abdomen on 01/08/2023, FDG PET/CT scan on 01/12/2023 TECHNIQUE: Examination was performed in a high field strength MRI scanner. Multiplanar multiphasic imaging of the abdomen was performed without IV contrast enhancement. Multiphasic Axial T1 weighted fat suppressed images of the upper abdomen were obtained after IV injection of 5 mL Gadavist. Coronal T1 weighted fat-suppressed images of the abdomen were obtained following the dynamic axial series. FINDINGS: LIVER: The liver shows persistent lobulated border. A persistent mildly T2 hyperintense lesion with central T1 and T2 hyperintense hemorrhagic component at medial border of right hepatic lobe segment 8, measuring 2.5 cm in diameter (previously 3.3 cm), not showing convincing enhancement, series 101 image #35. At a higher level, a hypoenhancing mass lesion is seen in posterior border of right hepatic lobe segment 8 measuring 1.9 cm in diameter (previously 2.1 cm), series 101 image #31. A hypoenhancing mass lesion is seen in anterior medial border of right hepatic lobe segment 8 measuring 2.3 cm in diameter (previously 2.3 cm), series 101 image #32. Unchanged 1.5 cm simple cyst at anterior capsular border of left hepatic lobe segment 4A, 2.0 cm simple cyst at inferior medial left hepatic lobe segment 4A, 1.0 cm simple cyst at right lateral border of left hepatic lobe segments 2 are seen. The calculated hepatic fat percentage is 4.3%, compatible with normal. HEPATOBILIARY: Gallbladder is nonvisualized. Common bile duct is not dilated. PANCREAS: No focal pancreatic lesion with abnormal signal can be seen. SPLEEN: Spleen is normal in size without focal lesion. ADRENAL: Bilateral adrenal glands are normal in shape and size. KIDNEYS: Bilateral kidneys are normal in size without focal lesion. Bilateral external breast prostheses are partially seen. Moderate right pleural effusion and small left pleural effusion are present. Advanced L5-S1 degenerative lumbar disc disease is seen. MR/MR abdomen wo/w con IMPRESSION: 1. Interval decrease in size of previously seen right hepatic lobe lesion with no convincing evidence of enhancement. 2. Other smaller hypoenhancing mass lesions in segment 8 of right hepatic lobe are stable or slightly decreased in size. 3. Unchanged left hepatic lobe simple cysts. 4. Moderate right and small left pleural effusions. 5. Unchanged nonvisualization of gallbladder, suggestive of status post cholecystectomy.
[2023-05-31] MEDS: gadobutroL 7.5 ML VIAL 5 ML IVPUSH (17:51)
== END 2023-05-31 15:24 | disposition home or self-care (01) ==
LOC: HO.MRI 15:23
PROVIDERS: PCP Internal Medicine; Visit Provider Internal Medicine Medical Oncology
DX: C78.7 Secondary malignant neoplasm of liver and intrahepatic bile duct (principal); J90 Pleural effusion, not elsewhere classified
CPT/HCPCS: 71046; 74183; A9585

== ENCOUNTER 2023-06-03 11:58 | Outpatient (REF) | payer MEDICARE, OTHER, SELFPAY | END 2023-06-03 11:59 | disposition home or self-care (01) | LOC: HO.LAB 11:58 | PROVIDERS: Visit Provider Internal Medicine Medical Oncology | DX: Z13.89 Encounter for screening for other disorder (principal) ==

== ENCOUNTER → 2023-08-31 15:43 | Outpatient (RCR) | payer MEDICARE, OTHER, SELFPAY ==
--- NOTE | 2022-09-15 15:20 | MHC.OT.DC ---
[address] [phone] F: [phone] Occupational Therapy Discharge Note Patient Name: Dotty Villela Provider: Filemon Urrutia Diagnosis: Lower extremity lymphedema Date of Surgery: Date of Evaluation: 08/19/22 Date of Discharge: 08/22/22 Treatments to Date: 2 Cancellations to Date: No Shows to Date: Discharge Status: Recommend MD Follow-up Discharge Summary: Change in treatment plan due to pt needing assist with lower leg bandaging due to precautions with recent laparoscopic surgery. Pt to order compression thigh high and requested new MD rx for [facility] for CDT , due to 45 min commute here to [facility]. Pt has a scheduled evaluation with [facility] Lymphedema therapist. Electronically Signed By: Libby Miles OT CHT CLT Reviewed/agree with student documentation: Therapist: Please Sign and return to therapist, thank you for your referral.
== END | disposition home or self-care (01) ==
LOC: HO.OT 08-19 14:19
PROVIDERS: PCP Internal Medicine; Visit Provider Surgery
DX: I89.0 Lymphedema, not elsewhere classified (principal)
CPT/HCPCS: 97140; 97167

== ENCOUNTER 2023-09-06 12:14 | Outpatient (AMB) | payer MEDICARE, OTHER, SELFPAY ==
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
[2023-09-06 12:17] VITALS: BP 130/70
== END 2023-09-06 12:32 | disposition home or self-care (01) ==
LOC: HO.HGS 12:14
PROVIDERS: PCP Internal Medicine; Visit Provider Surgery
DX: Z85.038 Personal history of other malignant neoplasm of large intestine (principal)
CPT/HCPCS: 99213

== ENCOUNTER → 2023-09-06 12:14 | Outpatient (BNVA) | payer MEDICARE, OTHER, SELFPAY | PROVIDERS: PCP Internal Medicine; Visit Provider Surgery | DX: Z85.038 Personal history of other malignant neoplasm of large intestine (principal) | CPT/HCPCS: 99212 ==

== ENCOUNTER 2023-12-24 08:24 | Day surgery (SDC) | payer MEDICARE, OTHER, SELFPAY ==
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
[2023-12-24 09:37] VITALS: BMI 20.5
[2023-12-24 10:03] VITALS: BP 166/92; PULSE 74; RESP 14; TEMP 36.3; O2SAT 99
[2023-12-24] MEDS: Lactated Ringers 1,000 ML 100 ML IVCONT (10:08)
--- NOTE | 2023-12-24 11:23 | MHC.SHP ---
Pre-Procedural Eval Section A - 24 Hr Update-Section A only Date of Service: 12/24/23 Section B - Complete if H&P > 30 days Chief Complaint: Personal history of other malignant neoplasm Details of Present Illness: Has history of sigmoid resection, July, for a malignant polyp now for follow-up colonoscopy Relevant Family History (Specify if Yes): No Relevant Social History: None Present Medications: see Short Stay Collaborative assessment (History of metastatic breast cancer, history of sigmoid cancer) Medical History: Significant History (History of sigmoid resection) Allergies: Allergies Allergy/AdvReac Type Severity Reaction Status Date / Time ragweed pollen [RAGWEED] Allergy Intermediate sneezing/co Verified 09/13/23 13:33 ngestion Review of Systems Sugical H&P ROS: Negative: Constitution, Cardiovascular, Respiratory, Psychiatric and Gastrointestinal Exam Surgical H&P Exam: Normal: Heart, Normal: Lungs and Normal: Abdomen Plan Diagnosis/Plan: Unchanged I have reviewed the history and physical and performed a pertinent physical examination on my patient. No changes have occurred unless specified. Time Spent With Patient Time: Total time managing care of this patient today ____ minutes.
--- NOTE | 2023-12-24 11:57 | W.PM.OPN ---
Operative Note Operative Note Date of Service: 12/24/23 Narrative: Preop diagnosis: History of sigmoid cancer Postop diagnosis: Normal colonoscopy findings; anastomosis seen at 12 cm level Procedure: Colonoscopy Surgeon: Filemon Urrutia MD The patient is a 73-year-old female who had a history of under resection for colon cancer last July,. She is here for follow-up colonoscopy. She understands the technique of the planned procedure as well as the risks, benefits, and alternatives The patient was brought to the operating room and placed in left lateral decubitus position under monitored anesthesia care. A surgical time-out was done. A full digital rectal exam was done and this did not reveal any significant anal lesions. The tip of the Olympus colonoscope was gently introduced through the anal orifice advanced with insufflation all the way to the cecum. The cecum was intubated. The cecum was identified by visualization of the ileocecal valve as well as the appendiceal orifice. The cecal mucosa was unremarkable. The scope was gradually withdrawn with careful examination of the entire colonic mucosa being done with scope withdrawal. The patient had adequate bowel prep so it was unlikely that any lesion may have been missed. The anastomosis was seen at level 12 cm. There were no lesions in this area. The rectum was reached and there were no lesions seen. The anal canal was unremarkable. The scope was then withdrawn completely with desufflation. The patient tolerated procedure well. There were no immediate complications. Her next colonoscopy may be in the next 5 years because of her personal history.
[2023-12-24 11:59] VITALS: BP 103/60; PULSE 78; RESP 16; TEMP 36.2; O2SAT 98
[2023-12-24 12:19] VITALS: BP 160/97; PULSE 78; RESP 18; TEMP 36.1; O2SAT 99
== END 2023-12-24 12:50 | disposition home or self-care (01) ==
PROVIDERS: PCP Internal Medicine; Visit Provider Surgery
PROC: 0DBE8ZZ Excision of Large Intestine, Via Natural or Artificial Opening Endoscopic (ICD-10-PCS; CPT G0105; principal; 2023-12-24 12:00)
DX: Z12.11 Encounter for screening for malignant neoplasm of colon (principal); Z85.038 Personal history of other malignant neoplasm of large intestine; Z98.0 Intestinal bypass and anastomosis status; Z90.49 Acquired absence of other specified parts of digestive tract; Z85.3 Personal history of malignant neoplasm of breast; C78.7 Secondary malignant neoplasm of liver and intrahepatic bile duct; Z92.3 Personal history of irradiation; Z92.21 Personal history of antineoplastic chemotherapy; K21.9 Gastro-esophageal reflux disease without esophagitis; I10 Essential (primary) hypertension; Z66 Do not resuscitate; Z98.890 Other specified postprocedural states
CPT/HCPCS: G0105; J2704

== ENCOUNTER → 2023-12-24 08:24 | Outpatient (BNV) | payer MEDICARE, OTHER, SELFPAY | PROVIDERS: PCP Internal Medicine; Visit Provider Surgery | DX: Z12.11 Encounter for screening for malignant neoplasm of colon (principal); Z85.038 Personal history of other malignant neoplasm of large intestine | CPT/HCPCS: G0105 ==

== ENCOUNTER 2024-01-13 11:09 | Outpatient (AMB) | payer MEDICARE, OTHER, SELFPAY ==
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
== END 2024-01-13 11:33 | disposition home or self-care (01) ==
LOC: HO.HGS 11:09
PROVIDERS: PCP Internal Medicine; Visit Provider Surgery
DX: Z85.038 Personal history of other malignant neoplasm of large intestine (principal)
CPT/HCPCS: 99441

== ENCOUNTER → 2024-01-13 11:09 | Outpatient (BNVA) | payer MEDICARE, OTHER, SELFPAY | PROVIDERS: PCP Internal Medicine; Visit Provider Surgery ==